=== PATIENT | male | born 1940 | race Caucasian/White ===

== ENCOUNTER 2020-03-22 08:43 | Outpatient (CLI) | payer MEDICARE, SELFPAY ==
[2020-03-22 09:28] LABS: Hemoglobin A1C 6.9 % (<5.7)
== END 2020-03-22 08:44 | disposition home or self-care (01) ==
LOC: ANHLAB 08:45
PROVIDERS: PCP Internal Medicine; Visit Provider Internal Medicine
DX: E11.9 Type 2 diabetes mellitus without complications (principal)
CPT/HCPCS: 36415; 83036

== ENCOUNTER 2020-05-05 09:51 | Outpatient (CLI) | payer MEDICARE, SELFPAY ==
[2020-05-05 10:51] LABS: Alanine Aminotransferase 12 U/L (4-50); Albumin Level 4.4 g/dL (3.5-5.1); Alkaline Phosphatase 76 U/L (38-126); Anion Gap 13.2 mmol/L (7-16); Aspartate Amino Transferase 20 U/L (17-59); Bilirubin,Total 0.8 mg/dL (0.2-1.3); Blood Urea Nitrogen 21 mg/dL (9-20); Calcium 9.5 mg/dL (8.4-10.2); Carbon Dioxide 29 mmol/L (22-30); Chloride 99 mmol/L (98-107); Estimated Glomerular Filt Rate > 60; Glucose 161 mg/dL (75-110); Potassium 4.2 mmol/L (3.4-5.0); Sodium 137 mmol/L (137-145)
== END 2020-05-05 09:52 | disposition home or self-care (01) ==
PROVIDERS: PCP Internal Medicine; Visit Provider Nurse Practitioner
DX: R42 Dizziness and giddiness (principal); R53.83 Other fatigue
CPT/HCPCS: 36415; 80053; 84443

== ENCOUNTER 2020-05-11 07:27 | Outpatient (CLI) | payer MEDICARE, SELFPAY ==
--- NOTE | ~2020-05-11 | CT_ITS ---
EXAMINATION: CT abdomen pelvis wo con EXAM DATE: 05/11/2020 07:43 INDICATION: Diverticulitis. Low Abdominal pain, prostate cancer. TECHNIQUE: Spiral CT of the abdomen and pelvis was performed without contrast. Axial, coronal and s agittal images were reviewed. The dose-length product (DLP) for this examination was 555.26 mGy-cm. The exposure was tailored according to patient size (auto mA exposure control), and iterative recons truction (ASIR) was used as additional dose reduction technique. Comparison is made to prior examinat ion from 05/23/2017. FINDINGS: There is a 1.2 cm right adrenal gland adenoma. Subcentimeter left liver lobe cyst. Splenic granulomata. The liver, spleen, adrenal glands and pancreas are otherwise unremarkable. Lower abdomi nal wall mesh. There are cholecystectomy clips. There is no nephrolithiasis or hydronephrosis. Robert gayle has likely had prostatectomy. Small bilateral inguinal fat-containing hernias. The bladder is unremarkable. There is no retroperitoneal or pelvic lymphadenopathy. There is moderate scattered a rteriosclerotic disease. The appendix is normal. The stomach and small bowel are unremarkable. There is expected amount of c olonic stool. There is extensive sigmoid predominant diverticulosis. Possible mild inflammation in th e pelvis, possible acute uncomplicated diverticulitis. No free intraperitoneal gas. The heart is normal in size. There are no pericardial or pleural effusions. Some bibasal postinfectious residua. There are no osteoblastic or osteolytic lesions identified. IMPRESSION: 1. Possible mild acute uncomplicated sigmoid diverticulitis. Extensive diverticulosis. 2. Prostatectomy, pelvic lymph node dissection. 3. Small inguinal fat-containing hernias. 4. Right adrenal adenoma. Reviewed, dictated and finalized at location A. IMPRESSION: 1. Possible mild acute uncomplicated sigmoid diverticulitis. Extensive diverti culosis. 2. Prostatectomy, pelvic lymph node dissection. 3. Small inguinal fat-containing hernias. 4. Right adrenal adenoma.
== END 2020-05-11 07:28 | disposition home or self-care (01) ==
PROVIDERS: PCP Internal Medicine; Visit Provider Nurse Practitioner
DX: K57.92 Diverticulitis of intestine, part unspecified, without perforation or abscess without bleeding (principal); Z90.79 Acquired absence of other genital organ(s); K40.90 Unilateral inguinal hernia, without obstruction or gangrene, not specified as recurrent; D35.01 Benign neoplasm of right adrenal gland
CPT/HCPCS: 74176

== ENCOUNTER 2020-08-04 07:33 | Outpatient (CLI) | payer MEDICARE, SELFPAY ==
[2020-08-04 08:21] LABS: Alanine Aminotransferase 16 U/L (4-50); Albumin Level 4.7 g/dL (3.5-5.1); Alkaline Phosphatase 67 U/L (38-126); Anion Gap 10 mmol/L (8-16); Aspartate Amino Transferase 22 U/L (17-59); Bilirubin,Total 0.8 mg/dL (0.2-1.3); Blood Urea Nitrogen 24 mg/dL (9-20); Calcium 9.5 mg/dL (8.4-10.2); Carbon Dioxide 30 mmol/L (22-30); Chloride 102 mmol/L (98-107); Cholesterol 185 mg/dL (0-200); Estimated Glomerular Filt Rate > 60; Glucose 159 mg/dL (75-110); HDL Direct 52 mg/dL; Sodium 142 mmol/L (137-145); Triglycerides 124 mg/dL (<150)
[2020-08-04 08:32] LABS: LDL Cholesterol Direct 98 mg/dL
[2020-08-04 08:38] LABS: Microalbumin Urine Random 94.3 mg/L (0-16.7)
[2020-08-04 10:43] LABS: Hemoglobin A1C 6.5 % (<5.7)
[2020-08-04 14:28] LABS: MALB Creatinine Ratio 26.9 mg/g (0-30)
[2020-08-05 08:35] LABS: Creatinine Urine 350.3 mg/dL
== END 2020-08-04 07:34 | disposition home or self-care (01) ==
PROVIDERS: PCP Internal Medicine; Visit Provider Nurse Practitioner
DX: E11.9 Type 2 diabetes mellitus without complications (principal); E78.00 Pure hypercholesterolemia, unspecified
CPT/HCPCS: 36415; 80053; 80061; 82043; 83036

== ENCOUNTER 2021-02-02 09:55 | Outpatient (CLI) | payer MEDICARE, SELFPAY ==
[2021-02-02 10:31] LABS: Hemoglobin A1C 6.7 % (<5.7)
[2021-02-02 10:37] LABS: Alanine Aminotransferase 19 U/L (4-50); Albumin Level 4.6 g/dL (3.5-5.1); Alkaline Phosphatase 65 U/L (38-126); Anion Gap 2 mmol/L (8-16); Aspartate Amino Transferase 27 U/L (17-59); Bilirubin,Total 0.6 mg/dL (0.2-1.3); Blood Urea Nitrogen 20 mg/dL (9-20); Calcium 9.1 mg/dL (8.4-10.2); Carbon Dioxide 34 mmol/L (22-30); Chloride 102 mmol/L (98-107); Cholesterol 178 mg/dL (0-200); Estimated Glomerular Filt Rate > 60; Glucose 166 mg/dL (75-110); HDL Direct 59 mg/dL; Potassium 4.4 mmol/L (3.4-5.0); Sodium 138 mmol/L (137-145); Triglycerides 99 mg/dL (<150)
[2021-02-02 10:48] LABS: LDL Cholesterol Direct 93 mg/dL
== END 2021-02-02 09:56 | disposition home or self-care (01) ==
LOC: ANHLAB 10:05
PROVIDERS: PCP Internal Medicine; Visit Provider Internal Medicine
DX: Z51.81 Encounter for therapeutic drug level monitoring (principal); Z79.899 Other long term (current) drug therapy; E78.5 Hyperlipidemia, unspecified; E11.9 Type 2 diabetes mellitus without complications
CPT/HCPCS: 36415; 80053; 80061; 83036

== ENCOUNTER 2021-04-24 12:17 | Outpatient (CLI) | payer MEDICARE, SELFPAY ==
--- NOTE | ~2021-04-24 | XR_ITS ---
[id number] 04/24/2021 12:39 Indication: Neck pain and headache Procedure: 5 view cervical spine Comparison: No prior studies for comparison. Findings: There is degenerative disc disease at C3-4 through C7-T1. There is degenerative anterolisth esis at C2-3 and retrolisthesis at C4-5. No prevertebral soft tissue swelling. There is mild multilev el uncinate and facet hypertrophy. Lung apices are normal. Impression: 1: Moderate cervical spondylosis. Reviewed, dictated and finalized at location A. Impression: 1: Moderate cervical spondylosis.
--- NOTE | ~2021-04-24 | CT_ITS ---
EXAMINATION: CT brain wo con DATE: 04/24/2021 12:35 INDICATION: Headache. TECHNIQUE: Computed tomography (CT) of the head was performed without intravenous contrast. The mA wa s adjusted according to patient size. Iterative reconstruction technique was employed. The dose-lengt h product was 605.33 mGy-cm. COMPARISON: None FINDINGS: There are scattered areas of low attenuation in the cerebral white matter. There is no intr acranial hemorrhage, acute infarction, or abnormal intracranial mass lesion. The ventricles are dino l in size. The orbits are normal. There is mild mucosal thickening in the paranasal sinuses. The mast oid air cells are normal. IMPRESSION: 1. Mild nonspecific cerebral white matter disease, which likely represents chronic small vessel ische lucie disease. Reviewed, dictated and finalized at location A. IMPRESSION: 1. 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
== END 2021-04-24 12:18 | disposition home or self-care (01) ==
LOC: ANHIMG 12:19
PROVIDERS: PCP Internal Medicine; Visit Provider Nurse Practitioner
DX: M47.892 Other spondylosis, cervical region (principal); R93.0 Abnormal findings on diagnostic imaging of skull and head, not elsewhere classified
CPT/HCPCS: 70450; 72040

== ENCOUNTER 2021-04-30 10:28 | Emergency (ER) | payer MEDICARE, SELFPAY ==
--- NOTE | ~2021-04-30 | XR_ITS ---
EXAMINATION: XR knee RT min 4V DATE: 04/30/2021 11:45 INDICATION: Right knee pain TECHNIQUE: Four views of the right knee were obtained. COMPARISON: None. FINDINGS: Alignment is normal. No fracture or osteochondral lesion. There is mild to moderate tricomp artmental osteoarthritis. A moderate size knee joint effusion is present. Calcified atherosclerosis i s noted. IMPRESSION: 1. Moderate size knee joint effusion. 2. Mild to moderate tricompartmental osteoarthritis. Reviewed, dictated and finalized at location A.
[2021-04-30 10:58] VITALS: BP 152/84; PULSE 74; RESP 12; TEMP 36.8; O2SAT 98
--- NOTE | 2021-04-30 11:27 | ED.EXTPRO ---
HPI - Extremity Problem General Chief complaint: Extremity Problem,Nontraumatic Stated complaint: R KNEE SWELLING Time Seen by Provider: 04/30/21 11:27 Source: patient Mode of arrival: ambulatory Limitations: no limitations History of Present Illness HPI Narrative: 81-year-old male patient presents to the [facility] with complaints of right knee swelling that started yesterday. Patient states that he went to go and get out of his recliner and felt like his knee was unstable and felt some pain. Patient states he has been icing it as well as wrapping it with an Carlos wrap. Denies taking any medications. Denies any recent trauma. Related Data Home Medications Medication Instructions Recorded Confirmed bimatoprost 0.01 % eye drops 1 drop EACH EYE DAILY 04/06/20 04/30/21 multivitamin 1 tablet PO DAILY 05/05/20 04/30/21 omega-3 fatty acids 1,000 mg PO DAILY 05/05/20 04/30/21 azelastine 137 mcg (0.1 %) nasal 137 mcg INTRANASAL Q12H 02/07/21 04/30/21 spray aerosol Allergies Allergy/AdvReac Type Severity Reaction Status Date / Time iodine Allergy Unknown Rash Verified 04/30/21 10:58 Review of Systems Review of Systems: Narrative: CONSTITUTIONAL: Denies fever, chills, or sweats. EYES: Denies visual changes, redness, or discharge. ENT: Denies rhinorrhea, congestion, sore throat, or otalgia. CARDIOVASCULAR: Denies chest pain, palpitations, or edema. RESPIRATORY: Denies cough or dyspnea. GASTROINTESTINAL: Denies abdominal pain, nausea, vomiting, or diarrhea. GENITOURINARY: Denies dysuria or hematuria. SKIN: Denies rash or itching. MUSCULOSKELETAL: Denies back pain, positive right knee joint pain, denies myalgia. NEUROLOGIC: Denies headache, numbness, or weakness. PSYCHIATRIC: Denies anxiety or depression. [facility] Past Medical History Medical History Diverticulitis Surgical History Surgical History History of prostatectomy Family History Family History Mother Patient's mother is Family history of malignant neoplasm of ovary Father Patient's father is Family history of malignant melanoma Sibling Family history of malignant melanoma Other Hypertension Social History Social History Smoking status: Never smoker Alcohol intake: never Comments At the time of my signature I agree with nursing past medical history, surgical, social, and family history. There is no relevant family history pertinent to the presenting complaint. Exam Narrative: Exam Narrative: GENERAL: Well-appearing, well-nourished, and in no acute distress. HEAD: Normocephalic, atraumatic. EYES: PERRLA and EOMI. ENT: Nares clear, no rhinorrhea or epistaxis. Mucous membranes moist. NECK: Supple. No lymphadenopathy CHEST: Clear to auscultation. No respiratory distress. HEART: Regular rate and rhythm. No murmur heard. Normal peripheral pulses. ABDOMEN: Soft, nontender, nondistended, normal active bowel sounds. EXTREMITIES: Patient is able to bear weight and ambulate but does have slight pain to the right knee. No surface trauma, STS, obvious effusion present to the right knee. No overlying erythema or warmth. The R knee is without obvious asymmetry or deformity when compared to the L knee. Patient is able to do deep knee bend with symmetry but has pain, no pain when fully extend knee, internal and external rotation. Slight tendernss to palpation of the patella, positive effusion and ballottement. No tenderness over the infrapatellar tendon. No tenderness over the medial or lateral joint lone ot the medial or lateral tibial plateaus. no tenderness over the proximal fibular head. no tenderness, fullness, or mass of the popliteal fossa. No quadriceps tenderness. No laxity of the ACL, PCL, MCL, or LCL. No collateral ligam
== END 2021-04-30 12:34 | disposition home or self-care (01) ==
PROVIDERS: Emergency Provider Nurse Practitioner Family; PCP Internal Medicine
DX: M25.461 Effusion, right knee (principal); Z90.79 Acquired absence of other genital organ(s); E78.00 Pure hypercholesterolemia, unspecified; I10 Essential (primary) hypertension; E11.9 Type 2 diabetes mellitus without complications; H26.9 Unspecified cataract; E11.39 Type 2 diabetes mellitus with other diabetic ophthalmic complication; H40.9 Unspecified glaucoma; H42 Glaucoma in diseases classified elsewhere
CPT/HCPCS: 73564; 99213; G0463

== ENCOUNTER 2021-08-18 09:00 | Outpatient (CLI) | payer MEDICARE, SELFPAY ==
[2021-08-18 10:31] LABS: Alanine Aminotransferase 17 U/L (4-50); Albumin Level 4.7 g/dL (3.5-5.1); Alkaline Phosphatase 70 U/L (38-126); Anion Gap 9 mmol/L (8-16); Aspartate Amino Transferase 23 U/L (17-59); Bilirubin,Total 0.9 mg/dL (0.2-1.3); Blood Urea Nitrogen 27 mg/dL (9-20); Calcium 9.7 mg/dL (8.4-10.2); Carbon Dioxide 28 mmol/L (22-30); Chloride 102 mmol/L (98-107); Cholesterol 197 mg/dL (0-200); Estimated Glomerular Filt Rate > 60; Glucose 176 mg/dL (65-110); HDL Direct 60 mg/dL; Potassium 4.1 mmol/L (3.4-5.0); Sodium 139 mmol/L (137-145); Triglycerides 141 mg/dL (<150)
[2021-08-18 10:39] LABS: Vitamin D 25 Hydroxy 47.4 ng/mL
[2021-08-18 10:42] LABS: LDL Cholesterol Direct 108 mg/dL
[2021-08-18 10:45] LABS: Hemoglobin A1C 6.8 % (<5.7)
[2021-08-18 10:50] LABS: Creatinine Urine 231.2 mg/dL
[2021-08-18 10:56] LABS: MALB Creatinine Ratio 17.6 mg/g (0-30); Microalbumin Urine Random 40.7 mg/L (0-16.7)
== END 2021-08-18 09:01 | disposition home or self-care (01) ==
LOC: ANHLAB 09:03
PROVIDERS: PCP Internal Medicine; Visit Provider Nurse Practitioner
DX: E55.9 Vitamin D deficiency, unspecified (principal); E11.9 Type 2 diabetes mellitus without complications; E78.00 Pure hypercholesterolemia, unspecified
CPT/HCPCS: 36415; 80053; 80061; 82043; 82306; 83036

== ENCOUNTER 2021-08-23 10:05 | Outpatient (CLI) | payer MEDICARE, SELFPAY ==
[2021-08-23 10:23] LABS: Basophils Absolute Auto 0.1 K/mm3 (0.0-0.1); Basophils Percent Auto 0.8 % (0.2-1.2); Eosinophils Absolute Auto 0.2 K/mm3 (0-0.3); Immature Granulocyte Absolute 0.07 K/mm3 (0.00-0.031); Immature Granulocyte Percent A 0.7 % (0-0.5); Lymphocytes Absolute Auto 2.01 K/mm3 (0.9-3.2); Lymphocytes Percent Auto 21.1 % (18.3-44.2); Mean Corpuscular Hemoglobin 31.5 pg (26-34); Mean Corpuscular Volume 92.5 fl (80-100); Mean Platelet Volume 9.7 fl (7.4-10.4); Monocytes Percent Auto 10.7 % (2.6-8.5); Neutrophils Absolute Auto 6.2 K/mm3 (1.3-6.7); Neutrophils Percent Auto 64.7 % (45.5-73.1); Platelet Count Result 197 k/mm3 (150-375); Red Blood Count 5.08 M/mm3 (4.6-6.20); Red Cell Distribution Width 13.1 % (11.5-14.5); White Blood Count 9.5 K/mm3 (4.5-10.0)
== END 2021-08-23 10:06 | disposition home or self-care (01) ==
LOC: ANHLAB 10:06
PROVIDERS: PCP Internal Medicine; Visit Provider Internal Medicine
DX: R53.83 Other fatigue (principal)
CPT/HCPCS: 36415; 82607; 84443; 85025

== ENCOUNTER 2021-08-31 08:42 | Outpatient (CLI) | payer MEDICARE, SELFPAY ==
--- NOTE | ~2021-08-31 | MR_ITS ---
EXAMINATION: MR brain/brain stem wo con DATE: 08/31/2021 09:58 INDICATION: Headache, unspecified. TECHNIQUE: Magnetic resonance imaging (MRI) of the brain and brainstem was performed without intraven ous contrast. Sequences included sagittal and axial T1-weighted FSE, axial diffusion-weighted FS EPI, axial T2*-weighted GRE, axial T2-weighted FLAIR Propeller, and axial T2-weighted Propeller. The catalino ent refused intravenous contrast. Apparent diffusion coefficient (ADC) maps were created. COMPARISON: Head CT 04/24/2021 FINDINGS: There are scattered areas of nonspecific increased T2-weighted signal intensity in the cere bral white matter. There is no intracranial hemorrhage, acute infarction, or abnormal intracranial ma ss lesion. The ventricles are normal in size. The paranasal sinuses are clear. The orbits are normal. The mastoid air cells are normal. IMPRESSION: 1. Moderate nonspecific cerebral white matter disease, which likely represents chronic small vessel i schemic disease. Reviewed, dictated and finalized at location A. IBILITY EXAMINER IMPRESSION: 1. Moderate nonspecific cerebral white matter disease, which likely represents chronic small vessel ischemic disease.
== END 2021-08-31 08:43 | disposition home or self-care (01) ==
PROVIDERS: PCP Internal Medicine; Visit Provider Internal Medicine
DX: R51.9 Headache, unspecified (principal); R90.82 White matter disease, unspecified
CPT/HCPCS: 70551

== ENCOUNTER 2021-10-25 11:00 | Outpatient (RCR) | payer MEDICARE, SELFPAY ==
--- NOTE | 2021-10-03 10:47 | PTOPEVAL ---
Thank you for referring Carlitos Rodarte to [facility].? The patient is scheduled to be seen for therapy? 2 x/week for 3 weeks. Please review, sign, date and return this plan of care FRENCH. I agree with and certify that the following plan of care is medically necessary. Referring Physician Date Attending Provider: Breezy Trinidad DO Diagnosis [email or web address] knee pain and dizziness Additional Evaluation Detail He is active working in yard. Does not perform a fitness program. He is applying voltaren for pain relief. Has DM, but denies neuropathy. Subjective Information He had water on his knee Query Text:As Reported By Patient/ about 2-3 months ago, which Family improved on its own with use of ice. Does not recall any activities any injury. 1 year ago he missed the bottom step slamming his right leg on the ground causing a broken toe. He reports clicking of his knee when walking on a decline slope. He reports limitations with negotiating steps. He reports he does not feel stable with activities. He reports intermittent head throbbing, but not dizziness. He has had vertigo in the past with medication to treat. Pain Assessment Left Knee(s) Reported Pain Level 3 Pain Description Aching Pain Frequency Chronic,Continuous Lowest Pain Intensity 2 Greatest Pain Intensity 3 Pain Aggravating Factors Exercise/Activity,Stair Climbing Right Knee(s) Reported Pain Level 1 Pain Description Aching Pain Frequency Chronic,Continuous Lowest Pain Intensity 1 Greatest Pain Intensity 2 Pain Aggravating Factors Exercise/Activity,Stair Climbing Lower Extremity Range of Motion General Lower Extremity Range of Motion Gross Lower Extremity Range of Motion left knee: 0-130 dg Comments right knee 0-140 dg Lower Extremity Muscle Strength Testing General Lower Extremity Strength Gross Lower Extremity Strength right hip flex: 4/5, ext: 4+/5 , abduction: 3/5, knee ext: 4/ 5, knee flex: 5/5 left hip flex/ext: 4+/5,
--- NOTE | 2021-10-25 11:46 | PTOPEVAL ---
Physical Therapy Discharge Summary Thank you for referring Carlitos Rodarte to [facility]He has received 7 therapy visits to address his knee pain and vestibular impairment. He has reached maximal potential with skilled therapy services with therapy goals achieved. Will discharge therapy services at this time with recommendations for him to continue with his home exercises. Please review, sign, date and return this discharge summary FRENCH. I agree with and certify that the following plan of care is medically necessary. Referring Physician Date Attending Provider: Breezy Trinidad DO Diagnosis [email or web address] knee pain and dizziness Additional Evaluation Detail He is active working in yard. Has DM, but denies neuropathy. Subjective Information He has intermittent dizziness Query Text:As Reported By Patient/ with movement, but it only Family last a few seconds. He has increased head pressure with head down position but relieved in upright position. He is able to negotiate steps better. Reports improved knee motion, denies any knee pain or clicking of his knee when walking. He is compliant with HEP. Pain Assessment Left Knee(s) Reported Pain Level 0 Lowest Pain Intensity 0 Greatest Pain Intensity 0 Right Knee(s) Reported Pain Level 0 Lowest Pain Intensity 0 Greatest Pain Intensity 0 Lower Extremity Range of Motion General Lower Extremity Range of Motion Gross Lower Extremity Range of Motion left knee: 0-130 dg Comments right knee 0-140 dg Lower Extremity Muscle Strength Testing General Lower Extremity Strength Gross Lower Extremity Strength right hip flex: 4+/5, ext: 5/5 abduction: 3+/5, knee ext: 4+/5, knee flex: 5/5 left hip flex/ext: 4+/5, abduction: 3+/5 knee flex/ext: 5/5 Muscle Length Testing Muscle Length Testing Two-Joint Hip Flexor Shortened Muscles Short (R) Iliopsoas,Short (L) Iliopsoas,Short (R) Rectus Femoris,Short (L) Rectus Femoris,Short (R) Ilial Tib Band,Short (L) Ilial Tib Band Piriformis w/Hip Flexion >90 Degrees (R) Moderate Tightness,(L) Moderate Tightness Left Hamstring Length -35:(90 - 90 Position) Right Hamstring Length -40:(90 - 90 Position) Gastrocnemius Length (R) Moderate Tightness,(L) Moderate Tightness Special Tests-Lower Extremity Hip Special Tests
== END 2021-10-26 17:17 | disposition home or self-care (01) ==
LOC: ANHPT 11:00
PROVIDERS: PCP Internal Medicine; Visit Provider Internal Medicine
DX: M25.561 Pain in right knee (principal); M25.562 Pain in left knee; R42 Dizziness and giddiness
CPT/HCPCS: 97110; 97112; 97162

== ENCOUNTER 2022-02-23 08:04 | Outpatient (CLI) | payer MEDICARE, SELFPAY ==
[2022-02-23 09:06] LABS: Alanine Aminotransferase 14 U/L (6-50); Albumin Level 4.3 g/dL (3.5-5.1); Alkaline Phosphatase 65 U/L (38-126); Anion Gap 8 mmol/L (8-16); Aspartate Amino Transferase 22 U/L (17-59); Blood Urea Nitrogen 31 mg/dL (9-20); Calcium 8.8 mg/dL (8.4-10.2); Carbon Dioxide 28 mmol/L (22-30); Chloride 102 mmol/L (98-107); Estimated Glomerular Filt Rate > 60; Glucose 159 mg/dL (65-110); Potassium 4.1 mmol/L (3.4-5.0); Sodium 138 mmol/L (137-145)
[2022-02-23 09:21] LABS: Creatinine Urine 316.3 mg/dL
[2022-02-23 09:26] LABS: MALB Creatinine Ratio 19.6 mg/g (0-30)
[2022-02-23 10:50] LABS: Vitamin D 25 Hydroxy 48.2 ng/mL
[2022-02-23 15:53] LABS: Hemoglobin A1C 6.8 % (<5.7)
== END 2022-02-23 08:05 | disposition home or self-care (01) ==
PROVIDERS: PCP Internal Medicine; Visit Provider Internal Medicine
DX: E11.9 Type 2 diabetes mellitus without complications (principal); I10 Essential (primary) hypertension; Z51.81 Encounter for therapeutic drug level monitoring; E55.9 Vitamin D deficiency, unspecified
CPT/HCPCS: 36415; 80053; 82043; 82306; 83036

== ENCOUNTER 2022-03-29 01:28 | Day surgery (SDC) | payer MEDICARE, SELFPAY ==
[2022-03-20 12:49] VITALS: BMI 23.7
--- NOTE | 2022-03-20 13:01 | PC.NURSE ---
Report to the Outpatient Waiting Room, entrance under the green pavilion located off [facility], at time _0830_ on date _03/29/22_. OR Time: _1030_. - You and your visitor will be asked a series of questions to screen for COVID 19 for your protection. - Only one visitor is allowed at this time. - The patient visitor is requested to leave or wait in car when not with patient. - A mask is required within the hospital. Patients may have clear liquids (water, carbonated beverages, clear teas, apple juice) until 3 hours prior to surgery (0730 AM) with a maximum of 20 ounces. - No food from midnight until time of surgery Take the following medications with a SIP of water the morning of surgery: _FELODIPINE_ Medications to discontinue per ANESTHESIA - MULTIVITAMIN, FISH OIL 3 DAYS PRIOR TO SURGERY, Date to take last dose 03/25/22_ Please no deodorant, or body powder the day of surgery. No jewelry (including any body piercings) or valuables the day of surgery, leave them at home. Please take a shower or bath the night before, or the morning of, surgery with an antibacterial soap. Wear comfortable, loose fitting clothing. - Jewelry must be removed prior to entering the operating room. Rings and piercings that are not removed may be cut off. - The hospital will not accept responsibility for valuables. - Please leave all valuables, including medications, at home the day of surgery. If you are going home after surgery, a licensed school boat driver must drive you home. - NO public transportation without another adult. - We recommend that an adult stay with you for 24 hours following discharge. - We also recommend that you do not drive, make important decision, drink alcoholic beverages, or take any drugs that were not prescribed by your health care provider for at least 24 hours after your discharge time. Follow any additional instructions given to you from your surgeon. HIBICLENS SHOWER AM OF SURGERY If you or anyone in your household have experienced Covid symptoms in the past week, please notify your surgeon or the nurse liaison at the phone number below for possible testing. Telephone instructions given to ____PT and asked if any additional questions and then verbalized understanding. Patient advised to call surgeon office or pre surgery nurse liaison [phone] if any additional questions.
--- NOTE | 2022-03-28 09:35 | WPDANESEPPF ---
Anes - Initial Pre Proc Eval Procedure: Operation Date: 03/29/22 10:30 Proposed Procedures p Right Inguinal Hernia Repair - Addi Foster MD Date/Time: 03/28/22 09:35 Surgeon: Addi Foster MD Pre Op Diagnosis: right inguinal hernia Patient Data Age: 82 Gender: M Height: 1.8 m Weight: 77.27 kg Allergies Allergy/AdvReac Type Severity Reaction Status Date / Time iohexol AdvReac Difficulty Verified 03/29/22 08:35 [From contrast - CT, X-RAY] Breathing/RASH/HOT FLUSHED FEELING Home Medications Medication Instructions Recorded Confirmed Type bimatoprost 0.01 % eye drops 1 drop ophthalmic (eye) HS 04/06/20 03/29/22 History (Lumigan) multivitamin 1 tablet PO QA 05/05/20 03/29/22 History omega-3 fatty acids 1,000 mg PO HS 05/05/20 03/29/22 History azelastine 137 mcg (0.1 %) nasal 137 mcg intranasal HS 02/07/21 03/29/22 History spray aerosol felodipine 10 mg tablet,extended 10 mg QA 03/20/22 03/29/22 History release 24 hr metformin 500 mg tablet 250 mg PO HS 03/20/22 03/29/22 History pravastatin 20 mg tablet 20 mg HS 03/20/22 03/29/22 History spironolactone 25 mg tablet 25 mg HS 03/20/22 03/29/22 History potassium chloride 20 mEq 20 meq PO BID #90 tabs 03/27/22 03/29/22 Rx tablet,extended release(part/cryst) hydrocodone 5 mg-acetaminophen 325 1 - 2 tablet PO Q6H PRN pain #10 03/29/22 Rx mg tablet tabs ibuprofen 600 mg tablet 600 mg PO Q6H PRN pain #14 tabs 03/29/22 Rx Patient hx anesthesia problems: none Family hx anesthesia problems: none Results Review: All pre-operative results and documents have been reviewed as part of the pre-operative evaluation. [facility] Past Medical History Medical History (Updated 03/28/22 @ 09:37 by Aron Mina DO) Arthritis of right knee Diverticulitis Essential (primary) hypertension Gastro-esophageal reflux disease without esophagitis Irregular heart beat Pure hypercholesterolemia Right bundle branch block Type 2 diabetes mellitus without complications Surgical History Surgical History H/O inguinal hernia repair History of prostatectomy Family History Family History Mother Patient's mother is Family history of malignant neoplasm of ovary Father Patient's father is Family history of malignant melanoma Sibling Family history of malignant melanoma Other Hypertension Social History Social History Smoking status: Never smoker Second hand tobacco smoke exposure: No Alcohol intake: never Substance use: never Substance use type: does not use Spiritual care concerns: No Anes - Eval Final PreProcedure Day of Procedure 03/28/22 09:35 Patient weight: normal Heart: regular rate and rhythm Lungs: clear to auscultation Airway: Mallampati scale class II Neurological: alert and oriented Last oral intake: >/= 8 hours ASA classification: III Emergent: no Anesthetic plan: proceed Anesthesia type and monitoring: general GIVS and standard monitoring Results Review: All pre-operative results and documents have been reviewed as part of the pre-operative evaluation. Informed Consent: The patient's anesthetic plan and its attendant risks and benefits were discussed with the patient/family/POA. Questions were solicited and answers provided to the satisfaction of the patient/family/POA.
--- NOTE | 2022-03-29 08:25 | WPDHPUPDATE1 ---
History and Physical Update Update Date/Time: 03/29/22 08:25 History and Physical has been reviewed, including an updated exam of the patient. There are NO changes in the patient's condition. Risks, benefits, and alternatives have been discussed and questions answered. Patient agrees to proceed with procedure.
[2022-03-29] MEDS: ACETAMINOPHEN 500 MG TABLET 1000 MG PO (08:42)
[2022-03-29 08:45] VITALS: BP 133/72; PULSE 79; RESP 20; TEMP 36.7; O2SAT 96
[2022-03-29] MEDS: LACTATED RINGERS 1,000 ML 30 ML IV CONT (09:25)
[2022-03-29] MEDS: KETOROLAC 15 MG/ML VIAL (*BKC) IV PUSH (09:30)
[2022-03-29 09:35] LABS: Glucose Point of Care 188 mg/dl (65-105)
[2022-03-29] MEDS: ceFAZolin 2 GM/D5W 50 ML 2 GM/50 ML BAG IVPB (10:28)
[2022-03-29] MEDS: LIDO 1%/EPINEPHRINE/PF 1:200,000 30 ML VIAL XX (10:52)
[2022-03-29 12:00] VITALS: BP 122/72; PULSE 78; RESP 12; O2SAT 94
[2022-03-29 12:08] LABS: Glucose Point of Care 134 mg/dl (65-105)
--- NOTE | 2022-03-29 12:17 | W.PM.PROC2 ---
Procedure Note - Detailed Date of Procedure 03/29/22 Pre-op Diagnosis right inguinal hernia Post-op Diagnosis Same Procedure Performed Right inguinal hernia repair with large PerFix Light plug and patch Surgeon Addi Foster MD Furniture Crater Jana Sigala COIL CONNECTOR REPAIRER Anesthesia General (G IV S) and Local (0.5% Marcaine) Indications Patient has noticed a bulge with some discomfort in the right groin. Examination in the office showed a reducible right inguinal hernia. He is taken to surgery now for right inguinal hernia repair. Findings This was an indirect right inguinal hernia. It appeared to have some of the urinary bladder wall as part of the hernia sac consistent with a sliding inguinal hernia. No direct hernia was noted. Description of Procedure Patient was taken to surgery and anesthesia was introduced. The right groin and genitalia were prepped and draped. The proposed incision was drawn in the right inguinal region. Local anesthetic was infiltrated in the area of the anticipated incision and in the deeper subcutaneous tissues. Incision was made dissection was carried down through the subcutaneous. Crossing veins were cauterized and divided. We dissected down through the subcutaneous to the external oblique aponeurosis. The aponeurosis was exposed as was the external ring. We then infiltrated local anesthetic deep to the aponeurosis in the area of the spermatic cord and inguinal canal contents. The aponeurosis was then opened laterally and this incision was extended medially through the external ring. The leaves of the aponeurosis were carefully dissected free from the underlying spermatic cord and inguinal canal contents. The ileal inguinal nerve was left attached to the cord and carefully avoided throughout the surgery. The cord was mobilized medially on a Katt drain. We then mobilized the cord back to the internal ring. Dissection was carried out in the anteromedial aspect of the spermatic cord. Some lipomatous tissue was found. This was excised and discarded. I dissected closer to the internal ring and then found the hernia sac which appeared to have some of the urinary bladder as its medial component. I dissected the sac back to a high dissection. I then dunked the sac into the retroperitoneum. I further skeletonized the cord so that the mesh could be securely sutured to the transversalis fascia. A large PerFix Light plug was chosen. It was placed in the defect. The edges were sutured to the transversalis fascia with interrupted 3-0 Vicryl suture. I then cut the patch to the appropriate size. It was placed over the inguinal canal floor with the lateral leaves passing beyond the cord. I then placed the 1st piece of Xaracoll over the mesh. The cord and ilioinguinal nerve were then laid over the the Xaracoll. The external oblique aponeurosis was closed with interrupted 3-0 Vicryl suture. The 2nd pieces Xaracoll was then placed over the external oblique aponeurosis. Alisia's fascia was closed with interrupted 3-0 Vicryl suture. The last piece of Xaracoll was then placed in the subcutaneous. The skin was loosely approximated with interrupted 4-0 Vicryl subcuticular suture. Finally the skin was closed with a running 4-0 Monocryl skin suture. The wound was dressed with Exofin surgical adhesive. The patient was awakened did take it to outpatient recovery in good condition. Sponge and needle counts were correct x2. Implants Large PerFix Light plug and patch Estimated Blood Loss -5.0 Drains No Packing No Pathology None sent Complications No immediate complications Condition Stable Disposition Same day [facility] Billing Surgery - Charge Forward: Surgery Billing (Right inguinal hernia repair)
[2022-03-29 12:30] VITALS: BP 120/80; PULSE 71; RESP 20
[2022-03-29 13:00] VITALS: BP 133/67; PULSE 59; RESP 20
[2022-03-29 13:30] VITALS: BP 137/67; PULSE 57; RESP 20
== END 2022-03-29 13:45 | disposition home or self-care (01) ==
PROVIDERS: PCP Nurse Practitioner; Visit Provider Surgery
PROC: (CPT 49505; principal; 2022-03-29 10:30)
DX: K40.90 Unilateral inguinal hernia, without obstruction or gangrene, not specified as recurrent (principal); E11.9 Type 2 diabetes mellitus without complications; I10 Essential (primary) hypertension; K21.9 Gastro-esophageal reflux disease without esophagitis; E78.00 Pure hypercholesterolemia, unspecified; I45.10 Unspecified right bundle-branch block; Z79.84 Long term (current) use of oral hypoglycemic drugs
CPT/HCPCS: 49505; 82948; A9270; C1781; J0690; J1100; J1885; J2370; J2405; J2704; J3010; J7120

== ENCOUNTER 2022-09-08 07:13 | Outpatient (CLI) | payer MEDICARE, SELFPAY ==
[2022-09-08 08:22] LABS: Alanine Aminotransferase 15 U/L (6-50); Albumin Level 4.2 g/dL (3.5-5.1); Alkaline Phosphatase 62 U/L (38-126); Anion Gap 7 mmol/L (8-16); Aspartate Amino Transferase 20 U/L (17-59); Bilirubin,Total 0.6 mg/dL (0.2-1.3); Blood Urea Nitrogen 19 mg/dL (9-20); Calcium 8.9 mg/dL (8.4-10.2); Carbon Dioxide 29 mmol/L (22-30); Chloride 102 mmol/L (98-107); Cholesterol 162 mg/dL (0-200); Estimated Glomerular Filt Rate > 60; Glucose 166 mg/dL (65-110); HDL Direct 50 mg/dL; Sodium 138 mmol/L (137-145); Triglycerides 110 mg/dL (<150)
[2022-09-08 08:33] LABS: LDL Cholesterol Direct 76 mg/dL
[2022-09-08 09:28] LABS: Hemoglobin A1C 7.2 % (<5.7)
== END 2022-09-08 07:14 | disposition home or self-care (01) ==
PROVIDERS: PCP Nurse Practitioner; Visit Provider Nurse Practitioner
DX: E11.9 Type 2 diabetes mellitus without complications (principal); E78.5 Hyperlipidemia, unspecified
CPT/HCPCS: 36415; 80053; 80061; 83036

== ENCOUNTER 2023-03-13 07:53 | Outpatient (CLI) | payer MEDICARE, SELFPAY ==
[2023-03-13 08:26] LABS: Hemoglobin A1C 7.3 % (<5.7)
[2023-03-13 08:31] LABS: Alanine Aminotransferase 19 U/L (6-50); Albumin Level 4.3 g/dL (3.5-5.1); Alkaline Phosphatase 62 U/L (38-126); Anion Gap 5 mmol/L (8-16); Aspartate Amino Transferase 21 U/L (17-59); Bilirubin,Total 0.9 mg/dL (0.2-1.3); Blood Urea Nitrogen 26 mg/dL (9-20); Calcium 8.7 mg/dL (8.4-10.2); Carbon Dioxide 30 mmol/L (22-30); Chloride 101 mmol/L (98-107); Cholesterol 171 mg/dL (0-200); Estimated Glomerular Filt Rate > 60; Glucose 170 mg/dL (65-110); HDL Direct 50 mg/dL; Sodium 136 mmol/L (137-145); Triglycerides 127 mg/dL (<150)
[2023-03-13 08:42] LABS: LDL Cholesterol Direct 95 mg/dL
[2023-03-13 09:19] LABS: Creatinine Urine 206.2 mg/dL
[2023-03-13 09:22] LABS: Microalbumin Urine Random 28.8 mg/L (0-16.7)
== END 2023-03-13 07:54 | disposition home or self-care (01) ==
LOC: ANHLAB 07:53
PROVIDERS: PCP Nurse Practitioner; Visit Provider Internal Medicine
DX: E78.5 Hyperlipidemia, unspecified (principal); I10 Essential (primary) hypertension; E11.9 Type 2 diabetes mellitus without complications
CPT/HCPCS: 36415; 80053; 80061; 82043; 83036

== ENCOUNTER 2023-06-07 14:51 | Outpatient (CLI) | payer MEDICARE, SELFPAY ==
[2023-06-07 15:09] LABS: Hematocrit 46.3 % (42.0-52.0); Hemoglobin 15.9 g/dL (14.0-18.0); Mean Corpuscular HGB Conc 34.3 g/dl (32-36); Mean Corpuscular Hemoglobin 31.2 pg (26-34); Mean Platelet Volume 9.5 fl (7.4-10.4); Platelet Count Result 233 k/mm3 (150-375); Red Blood Count 5.09 M/mm3 (4.6-6.20); Red Cell Distribution Width 12.7 % (11.5-14.5); White Blood Count 8.2 K/mm3 (4.5-10.0)
== END 2023-06-07 14:52 | disposition home or self-care (01) ==
PROVIDERS: PCP Family Medicine; Visit Provider Nurse Practitioner
DX: R19.4 Change in bowel habit (principal); R53.83 Other fatigue
CPT/HCPCS: 36415; 85027

== ENCOUNTER 2023-07-05 12:18 | Outpatient (CLI) | payer MEDICARE, SELFPAY ==
--- NOTE | ~2023-07-05 | CT_ITS ---
Non-contrast CT scan of the Abdomen and Pelvis Clinical indication: Suprapubic tenderness and lump Technique: 2.5 mm axial scans were obtained through the abdomen and pelvis without intravenous or or al contrast. Dose reduction technique was used on this scan by utilizing automated exposure control a nd iterative reconstruction technique. The dose-length product (DLP) was 580.80 mGy-cm. COMPARISON: 05/11/2020 Findings: Images through the lung bases reveal mild bibasilar atelectasis/scarring. Small bilateral renal cysts are present. No renal stone or hydronephrosis evident. The liver, spleen, pancreas, and adrenal glands appear normal. Small right adrenal nodule is unchange d, consistent with adenoma. Cholecystectomy clips are present. There is no aortic aneurysm. There is no evidence of bowel obstruction. There is extensive sigmoid diverticulosis. Questionable mi ld wall thickening of the distal sigmoid colon. No abscess or free air. Images through the pelvis were performed. There is no evidence of ascites or lymphadenopathy. Urinary bladder unremarkable. Patient appears to be post prostatectomy. Apparent mesh or other postsurgical material present at the lower anterior abdominal wall region. Impression: Questionable very mild acute diverticulitis of the distal sigmoid colon. No abscess or free air. Post prostatectomy. Presumed herniorrhaphy mesh or other postsurgical material just deep to the infer ior, anterior abdominal wall in the suprapubic region. Stable right adrenal adenoma. Reviewed, dictated and finalized at [facility]. Impression: Questionable very mild acute diverticulitis of the distal sigmoid colon. No abs cess or free air. Post prostatectomy. Presumed herniorrhaphy mesh or other postsurgical material just deep to the inferior, anterior abdominal wall in the suprapubic region. Stable right adrenal adenoma.
== END 2023-07-05 12:19 | disposition home or self-care (01) ==
LOC: ANHIMG 12:21
PROVIDERS: PCP Family Medicine; Visit Provider Nurse Practitioner
DX: R19.4 Change in bowel habit (principal); R19.00 Intra-abdominal and pelvic swelling, mass and lump, unspecified site; R10.819 Abdominal tenderness, unspecified site; Z90.79 Acquired absence of other genital organ(s); Z86.010 Personal history of colon polyps; D35.01 Benign neoplasm of right adrenal gland
CPT/HCPCS: 74176

== ENCOUNTER 2023-08-29 00:59 | Day surgery (SDC) | payer MEDICARE, SELFPAY ==
[2023-07-03 13:16] VITALS: BMI 23.7
[2023-08-16 09:17] VITALS: BMI 23.7
--- NOTE | 2023-08-27 09:42 | SUR.PREOP ---
Patient called regarding upcoming procedure. Reviewed preop instructions, appointment times, and procedure prep.
[2023-08-29 07:25] VITALS: BP 142/68; PULSE 90; RESP 20; TEMP 36.7; O2SAT 99
[2023-08-29 07:35] LABS: Glucose Point of Care 157 mg/dl (65-105)
[2023-08-29] MEDS: LACTATED RINGERS 1,000 ML 150 ML IV CONT (07:43)
--- NOTE | 2023-08-29 08:26 | PM.HPGS ---
History of Present Illness History of Present Illness Consent: Risks, benefits, and alternatives have been discussed and questions answered. Patient agrees to proceed with procedure. Chief complaint: Personal hx of colonic polyps Narrative: Carlitos Rodarte is a 83 year old male with colon polyps in 2019 Review of Systems Constitutional: Constitutional: Denies headache(s) and Denies weakness Eyes: Eyes: Denies blurry vision ENT: Reports Normal hearing present, Denies headache(s) and Denies neck pain Cardiovascular: Cardiovascular: Denies chest pain and Denies dyspnea Respiratory: Respiratory: Denies dyspnea Gastrointestinal: Gastrointestinal: Reports no additional gastrointestinal complaints Genitourinary: Genitourinary: Denies dysuria Musculoskeletal: Musculoskeletal: Denies neck pain Integumentary/Breasts: Skin/Breast: Denies dry skin Neurologic: Reports Normal hearing present, Denies headache(s) and Denies weakness Psychiatric: Psychiatric: Denies anxiety Endocrine: Endocrine: Denies change in body appearance Hematologic/Lymphatic: Hematologic/Lymphatic: Denies easy bleeding Allergic/Immunologic: Allergic/Immunologic: Denies urticaria PMFSH Past Medical History Medical History (Updated 06/28/23 @ 13:28 by Joy Moore, SHAWN) Arthritis of right knee COVID-19 Diverticulitis Essential (primary) hypertension Gastro-esophageal reflux disease without esophagitis Hx of adenomatous colonic polyps Irregular heart beat Lump in the abdomen Pure hypercholesterolemia Right bundle branch block Suprapubic tenderness Type 2 diabetes mellitus without complications Surgical History Surgical History H/O inguinal hernia repair Right Inguinal Hernia repair on 03/29/2022. History of prostatectomy Family History Family History Mother Patient's mother is Family history of malignant neoplasm of ovary Father Patient's father is Family history of malignant melanoma Sibling Family history of malignant melanoma Other Hypertension Social History Social History Smoking status: Never smoker Second hand tobacco smoke exposure: No Alcohol intake: never Substance use: never Substance use type: does not use Lack of Transportation: No Lack of Food: Never True Current Housing: I Have Housing Concerned About Future Housing: No Difficulty Paying Gas/Electric Bills: No Difficulty Paying for Meds: No Currently Unemployed: No Education: High School Diploma/GED Difficulty w/ Childcare or Family Care: No Living arrangements: with family Spiritual care concerns: No Meds Home Medications and Allergies Home Medications Medication Instructions Recorded Confirmed Type bimatoprost 0.01 % eye drops 1 drop ophthalmic (eye) HS 04/06/20 08/16/23 History (Lumigan) multivitamin 1 tablet PO QAM 05/05/20 08/16/23 History omega-3 fatty acids 1,000 mg PO HS 05/05/20 08/16/23 History azelastine 137 mcg (0.1 %) nasal 137 mcg intranasal HS 09/12/22 08/16/23 History spray aerosol spironolactone 25 mg tablet See Rx Instructions .Route 01/08/23 08/16/23 Rx .COMPLEX #90 tabs metformin 500 mg tablet 250 mg PO HS #90 tabs 03/13/23 08/16/23 Rx pravastatin 20 mg tablet See Rx Instructions .Route 05/28/23 08/16/23 Rx .COMPLEX #90 tabs mecobalamin (vitamin B12) 1,000 1,000 mcg PO DAILY 06/07/23 08/16/23 History mcg lozenges potassium chloride 20 mEq 20 meq PO BID #90 tabs 06/25/23 08/16/23 Rx tablet,extended release(part/cryst) felodipine 10 mg tablet,extended See Rx Instructions .Route 08/23/23 Rx release 24 hr .COMPLEX #90 tabs Allergies Allergy/AdvReac Type Severity Reaction Status Date / Time iohexol AdvReac Difficulty Verified 07/03/23 13:13 [From contrast - CT, X-RAY] Emain
[2023-08-29 08:55] VITALS: BP 111/59; PULSE 84; RESP 22; O2SAT 99
[2023-08-29 09:05] VITALS: BP 103/63; PULSE 78; RESP 19; O2SAT 98
[2023-08-29 09:15] VITALS: BP 122/74; PULSE 76; RESP 19; O2SAT 98
== END 2023-08-29 09:24 | disposition home or self-care (01) ==
PROVIDERS: PCP Family Medicine; Visit Provider Internal Medicine Gastroenterology
PROC: 0DJD8ZZ Inspection of Lower Intestinal Tract, Via Natural or Artificial Opening Endoscopic (ICD-10-PCS; CPT 45378; principal; 2023-08-29 08:45)
DX: Z12.11 Encounter for screening for malignant neoplasm of colon (principal); K57.30 Diverticulosis of large intestine without perforation or abscess without bleeding; D12.4 Benign neoplasm of descending colon; K64.8 Other hemorrhoids; I10 Essential (primary) hypertension; E11.9 Type 2 diabetes mellitus without complications; E78.00 Pure hypercholesterolemia, unspecified; Z79.84 Long term (current) use of oral hypoglycemic drugs; Z90.79 Acquired absence of other genital organ(s); Z86.79 Personal history of other diseases of the circulatory system; Z80.41 Family history of malignant neoplasm of ovary
CPT/HCPCS: 45385; 82948; 88305; J2371; J2704; J7120

== ENCOUNTER 2023-09-22 08:25 | Outpatient (CLI) | payer MEDICARE, SELFPAY ==
[2023-09-22 09:09] LABS: Alanine Aminotransferase 19 U/L (6-50); Albumin Level 4.3 g/dL (3.5-5.1); Alkaline Phosphatase 67 U/L (38-126); Anion Gap 10 mmol/L (8-16); Aspartate Amino Transferase 21 U/L (17-59); Bilirubin,Total 0.9 mg/dL (0.2-1.3); Blood Urea Nitrogen 27 mg/dL (9-20); Calcium 9.6 mg/dL (8.4-10.2); Carbon Dioxide 27 mmol/L (22-30); Chloride 100 mmol/L (98-107); Cholesterol 174 mg/dL (0-200); Estimated Glomerular Filt Rate > 60; Glucose 187 mg/dL (65-110); HDL Direct 50 mg/dL; Potassium 4.3 mmol/L (3.4-5.0); Sodium 137 mmol/L (137-145); Triglycerides 101 mg/dL (<150)
[2023-09-22 09:20] LABS: LDL Cholesterol Direct 95 mg/dL
[2023-09-22 09:31] LABS: Free T4 Free Thyroxine 1.37 ng/mL (0.78-2.19)
[2023-09-22 12:45] LABS: Hemoglobin A1C 7.9 % (<5.7)
== END 2023-09-22 08:26 | disposition home or self-care (01) ==
LOC: ANHLAB 08:28
PROVIDERS: PCP Family Medicine; Visit Provider Nurse Practitioner
DX: E78.5 Hyperlipidemia, unspecified (principal); E11.9 Type 2 diabetes mellitus without complications; R53.83 Other fatigue
CPT/HCPCS: 36415; 80053; 80061; 83036; 84439; 84443

== ENCOUNTER 2023-12-25 09:47 | Outpatient (CLI) | payer MEDICARE, SELFPAY ==
[2023-12-25 12:46] LABS: Hemoglobin A1C 7.2 % (<5.7)
== END 2023-12-25 09:48 | disposition home or self-care (01) ==
LOC: ANHLAB 09:50
PROVIDERS: PCP Family Medicine; Visit Provider Nurse Practitioner
DX: E11.9 Type 2 diabetes mellitus without complications (principal)
CPT/HCPCS: 36415; 83036

== ENCOUNTER 2024-03-31 08:40 | Outpatient (CLI) | payer MEDICARE, SELFPAY ==
[2024-03-31 09:12] LABS: Alanine Aminotransferase 15 U/L (6-50); Albumin Level 4.4 g/dL (3.5-5.1); Alkaline Phosphatase 59 U/L (38-126); Anion Gap 7 mmol/L (4-12); Aspartate Amino Transferase 20 U/L (17-59); Bilirubin,Total 0.9 mg/dL (0.2-1.3); Blood Urea Nitrogen 23 mg/dL (9-20); Calcium 9.1 mg/dL (8.4-10.2); Carbon Dioxide 28 mmol/L (22-30); Chloride 103 mmol/L (98-107); Cholesterol 164 mg/dL (0-200); Estimated Glomerular Filt Rate > 60; Glucose 166 mg/dL (65-110); HDL Direct 57 mg/dL; Sodium 138 mmol/L (137-145); Triglycerides 81 mg/dL (<150)
[2024-03-31 09:16] LABS: Hemoglobin A1C 6.7 % (<5.7)
[2024-03-31 09:22] LABS: LDL Cholesterol Direct 92 mg/dL
== END 2024-03-31 08:41 | disposition home or self-care (01) ==
LOC: ANHLAB 08:42
PROVIDERS: PCP Nurse Practitioner; Visit Provider Nurse Practitioner
DX: E78.5 Hyperlipidemia, unspecified (principal); E11.9 Type 2 diabetes mellitus without complications
CPT/HCPCS: 36415; 80053; 80061; 83036

== ENCOUNTER 2024-05-19 18:53 | Emergency (ER) | payer MEDICARE, SELFPAY ==
--- NOTE | ~2024-05-19 | XR_ITS ---
EXAMINATION: XR chest 2V Exam Date/Time: 05/19/2024 19:10 CDT HISTORY: CHEST PAIN,DIZZINESS Comparison: 04/28/2019. RESULT: Lines, tubes, and devices: Cholecystectomy clips. Lungs and pleura: Linear and subsegmental bibasilar opacities. Cardiomediastinal silhouette: Stable. Other: No acute osseous or upper abdominal finding. IMPRESSION: Bibasilar atelectasis/consolidation. Reviewed, dictated and finalized at location [facility].
[2024-05-19 18:55] VITALS: BP 143/79; PULSE 81; RESP 20; TEMP 36.3; O2SAT 97
--- NOTE | 2024-05-19 18:55 | ECG_ITS ---
Test Date: 2024-05-19 18:58:53 Measurements Intervals [place] Rate: 75 P: 35 LA: 167 QRS: -3 QRSD: 138 T: -1 QT: 413 QTc: 462 Interpretive Statements SINUS RHYTHM WITH FREQUENT VENTRICULAR PREMATURE COMPLEXES RIGHT BUNDLE BRANCH BLOCK [120+ ms QRS DURATION, UPRIGHT V1, 40+ ms S IN I/aVL/V4/V5/V6] No previous ECG available for comparison Electronically Signed On 05-20-2024 14:36:55 CDT by Teresa Rosario M.D.
[2024-05-19 19:12] LABS: Basophils Absolute Auto 0.1 K/mm3 (0.0-0.1); Basophils Percent Auto 1.2 % (0.2-1.2); Eosinophils Absolute Auto 0.2 K/mm3 (0-0.3); Eosinophils Percent Auto 2.3 % (0-4.4); Hematocrit 47.8 % (42.0-52.0); Hemoglobin 16.3 g/dL (14.0-18.0); Immature Granulocyte Absolute 0.04 K/mm3 (0.00-0.031); Immature Granulocyte Percent A 0.5 % (0-0.5); Lymphocytes Percent Auto 32.1 % (18.3-44.2); Mean Corpuscular HGB Conc 34.1 g/dl (32-36); Mean Corpuscular Hemoglobin 31.4 pg (26-34); Mean Corpuscular Volume 92.1 fl (80-100); Mean Platelet Volume 9.6 fl (7.4-10.4); Monocytes Absolute Auto 0.9 K/mm3 (0.1-0.6); Monocytes Percent Auto 10.9 % (2.6-8.5); Neutrophils Absolute Auto 4.3 K/mm3 (1.3-6.7); Platelet Count Result 214 k/mm3 (150-375); Red Blood Count 5.19 M/mm3 (4.6-6.20); Red Cell Distribution Width 13.2 % (11.5-14.5); White Blood Count 8.1 K/mm3 (4.5-10.0)
[2024-05-19 19:21] LABS: Alanine Aminotransferase 16 U/L (6-50); Albumin Level 4.9 g/dL (3.5-5.1); Alkaline Phosphatase 60 U/L (38-126); Anion Gap 8 mmol/L (4-12); Aspartate Amino Transferase 21 U/L (17-59); Bilirubin,Total 0.9 mg/dL (0.2-1.3); Blood Urea Nitrogen 19 mg/dL (9-20); Calcium 9.2 mg/dL (8.4-10.2); Carbon Dioxide 31 mmol/L (22-30); Chloride 98 mmol/L (98-107); Estimated CRCL calculation 54 ml/min; Estimated Glomerular Filt Rate > 60; Glucose 155 mg/dL (65-110); Lipase 88 U/L (23-300); Potassium 4.1 mmol/L (3.4-5.0); Sodium 137 mmol/L (137-145)
[2024-05-19 19:28] LABS: Partial Thromboplastin Time 24.9 Seconds (22.3-36.8)
[2024-05-19 19:29] LABS: Prothrombin Time 13.3 Seconds (11.1-14.7)
[2024-05-19 19:32] LABS: Troponin I < 0.012 ng/mL (0.000-0.034)
[2024-05-19 22:17] VITALS: BP 188/92; PULSE 72; RESP 12; O2SAT 96
[2024-05-19] MEDS: ASPIRIN 81 MG CHEWABLE TABLET 324 MG PO (22:26)
--- NOTE | 2024-05-19 22:32 | ECG_ITS ---
Test Date: 2024-05-19 22:42:39 Measurements Intervals [place] Rate: 56 P: 33 MD: 179 QRS: -16 QRSD: 145 T: -1 QT: 454 QTc: 442 Interpretive Statements SINUS BRADYCARDIA RIGHT BUNDLE BRANCH BLOCK [120+ ms QRS DURATION, UPRIGHT V1, 40+ ms S IN I/aVL/V4/V5/V6] Compared to ECG 05/19/2024 18:58:53 NO SIGNIFICANT CHANGES Electronically Signed On 05-20-2024 14:41:48 CDT by Teresa Rosario M.D.
[2024-05-19 22:36] VITALS: O2SAT 96
--- NOTE | 2024-05-19 23:02 | PC.NURSE ---
care and report given to PERCY Betancourt. all questions answered.
[2024-05-19 23:03] LABS: Troponin I < 0.012 ng/mL (0.000-0.034)
--- NOTE | 2024-05-19 23:23 | ED.GENADULT ---
HPI - General Adult General Chief complaint: Chest Pain Stated complaint: CHEST PAIN,DIZZINESS Time Seen by Provider: 05/19/24 22:55 History of Present Illness HPI narrative: Patient is a 84-year-old gentleman who presents emergency department with chief complaint of chest pain. Patient reports that he started yesterday and had some episodes of sharp type pain in the left side of his chest patient recently has had some episodes of lightheadedness and dizziness reports that that is a not uncommon thing and he has history of vertigo patient also reports he has had some palpitations and had some premature beats that he has had a Holter monitor test for. The patient states that he is feeling much better at this time Related Data Home Medications Medication Instructions Recorded Confirmed bimatoprost 0.01 % eye drops 1 drop ophthalmic (eye) HS 04/06/20 09/25/23 (Lumigan) multivitamin 1 tablet PO QAM 05/05/20 04/04/24 omega-3 fatty acids 1,000 mg PO HS 05/05/20 04/04/24 azelastine 137 mcg (0.1 %) nasal 137 mcg intranasal HS 09/12/22 04/04/24 spray mecobalamin (vitamin B12) 1,000 1,000 mcg PO DAILY 06/07/23 04/04/24 mcg lozenges Allergies Allergy/AdvReac Type Severity Reaction Status Date / Time iohexol AdvReac Difficulty Verified 04/04/24 07:55 [From contrast - CT, X-RAY] Breathing/RASH/HOT FLUSHED FEELING Review of Systems Review of Systems: A 10 system review of systems was completed on the patient and is negative except for what is stated in the HPI. Nursing and ancillary documentation was reviewed. [facility] Past Medical History Medical History Arthritis of right knee COVID-19 Diverticulitis Essential (primary) hypertension Gastro-esophageal reflux disease without esophagitis Hx of adenomatous colonic polyps Irregular heart beat Lump in the abdomen Pure hypercholesterolemia Right bundle branch block Suprapubic tenderness Type 2 diabetes mellitus without complications Surgical History Surgical History H/O inguinal hernia repair Right Inguinal Hernia repair on 03/29/2022. History of prostatectomy Family History Family History Mother Patient's mother is Family history of malignant neoplasm of ovary Father Patient's father is Family history of malignant melanoma Sibling Family history of malignant melanoma Other Hypertension Social History Social History Smoking status: Never smoker Second hand tobacco smoke exposure: No Alcohol intake: never Substance use: never Substance use type: does not use Lack of Transportation: No Lack of Food: Never True Current Housing: I Have Housing Concerned About Future Housing: No Difficulty Paying Gas/Electric Bills: No Difficulty Paying for Meds: No Currently Unemployed: No Education: High School Diploma/GED Difficulty w/ Childcare or Family Care: No Living arrangements: with family Spiritual care concerns: No Exam Narrative: GENERAL: Well-appearing, well-nourished, and in no acute distress. HEAD: Normocephalic, atraumatic. EYES: PERRLA and EOMI. ENT: Nares clear, no rhinorrhea or epistaxis. Mucous membranes moist. NECK: Supple. CHEST: Clear to auscultation. No respiratory distress. HEART: Regular rate and rhythm. No murmur heard. Normal peripheral pulses. ABDOMEN: Soft, nontender, nondistended, normal active bowel sounds. EXTREMITIES: Normal range of motion. No edema. SKIN: Warm, dry, no rash. NEURO: No focal deficits. Alert and oriented x3. PSYCH: Normal mood and affect. Course Vital Signs Vital signs: Vital Signs Temperature 36.3 C L 05/19/24 18:55 Pulse Rate 81 05/19/24 18:55 Respiratory Rate 20
== END 2024-05-19 23:44 | disposition home or self-care (01) ==
PROVIDERS: Preventive Medicine Aerospace Medicine; Emergency Provider Emergency Medicine; PCP Internal Medicine
DX: R07.9 Chest pain, unspecified (principal); I49.3 Ventricular premature depolarization; M19.90 Unspecified osteoarthritis, unspecified site; I10 Essential (primary) hypertension; K21.9 Gastro-esophageal reflux disease without esophagitis; E11.9 Type 2 diabetes mellitus without complications
CPT/HCPCS: 36415; 71046; 80053; 83690; 84484; 85025; 85610; 85730; 93005; 99284; A9270

== ENCOUNTER 2025-03-24 19:29 | Emergency (ER) | payer MEDICARE, SELFPAY ==
--- NOTE | ~2025-03-24 | XR_ITS ---
XR chest 1V portable Ordering provider: Laurel Reese MD History: 85 years Male with . cp RADIATES DOWN LEFT ARM AFTER CUTTING GRASS . Comparison: May 19, 2024 FINDINGS: MEDIASTINUM: The cardiac silhouette is not enlarged. LUNGS: No effusions or pneumothorax. Bibasilar opacification suggestive of atelectasis versus pneumon ia. OTHER: No free air under the diaphragm. Degenerative changes of the spine. IMPRESSION: Bibasilar atelectasis versus pneumonia. Reviewed, dictated and finalized at location A.
--- OUTSIDE RECORDS SUMMARY | 2025-03-24 19:31 | XMS_ITS | Referral Summary ---
Author [place] [facility] [place] [address] Address [address] [place] [address] Care Team Providers Care Arc Trimmer Name Role Phone Breezy Trinidad Primary Care Provider [phone] Allergies Active Allergy Reactions Criticality Noted Date Comments Iodinated Contrast Media Shortness of br eath,Flushing (skin) High 05/06/2020 Iodine Rash Medium 04/03/2022 Medications felodipine (PLENDIL) 10 mg 24 hr tablet Take 1 tablet (10 mg total) by mouth daily Active KLOR-CON M20 20 mEq CR tablet Take 1 tablet (20 mEq total) by mouth 2 (two) times a day 3 9 Active pravastatin (PRAVACHOL) 20 mg tablet Take 1 tablet (20 mg total) by mouth daily 1 9 Active spironolactone (ALDACTONE) 25 mg tablet Take 1 tablet (25 mg total) by mouth daily Active Lumigan 0.01 % ophthalmic drops 0 Active multivitamin capsule Take 1 capsule by mouth daily Active salmon oiL-omega-3 fatty acids ([place] Oil-1000) 1,000-200 mg capsule [place] Oil-1000 Acti ve azelastine (ASTELIN) 137 mcg (0.1 %) nasal sprayIndication s:Vasomotor rhinitis Administer 2 sprays into each nostril 2 (two) times a day Use in each nostril as directed 360 mL 3 2 Active Additional Information Patient not taking.Reported on 11/28/2024 cyanocobalamin (Vitamin B-12) 1,000 mcg tabletIndicatio ns:Prevention of Vitamin B12 Deficiency Take 1 tablet (1,000 mcg total) by mouth daily Active psyllium 0.52 gram capsule Take 1 capsule (0.52 g total) by mouth daily Active latanoprost (XALATAN) 0.005 % ophthalmic solution INSTILL 1 DROP INTO EACH EYE ONCE DAILY AT BEDTIME 4 Active pioglitazone (ACTOS) 15 mg tablet Take 1 tablet (15 mg total) by mouth daily 5 Active Active Problems Problem Noted Date Diagnosed Date Dysphonia 04/18/2023 Assessment & Plan (04/18/2023 11:54 AM CDT): 50 ounces of caffeine free and soda free fluid daily Aortic valve sclerosis 11/22/2021 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 Assessment & Plan (04/18/2023 11:54 AM CDT): Continue Astelin Assessment & Plan (04/03/2022 1:19 PM CDT): Protect Hearing Continue Astelin daily follow up in one year Assessment & Plan (12/03/2020 2:56 PM WATER REUSE PROGRAM MANAGER): White noise to cancel out ringing sound Hearing test - [facility] Astelin (azelastine) 2 sprays into each nostril while looking down over the sink, do not sniff in or blow nose after use for at least 30 minutes twice daily Bilateral hearing loss 12/03/2020 Assessment & Plan (12/03/2020 2:58 PM WATER REUSE PROGRAM MANAGER): White noise to cancel out ringing sound Hearing test - [facility] Astelin (azelastine) 2 sprays into each nostril while looking down over the sink, do not sniff in or blow nose after use for at least 30 minutes twice daily for at least 6 weeks Dysfunction of both eustachian tubes 12/03/2020 Assessment & Plan (12/03/2020 2:57 PM WATER REUSE PROGRAM MANAGER): White noise to cancel out ringing sound Hearing test - [facility] Astelin (azelastine) 2 sprays into each nostril while looking down over the sink, do not sniff in or blow nose after use for at least 30 minutes twice daily RBBB 06/24/2019 PVC (premature ventricular contraction) 06/24/20 19 Social History Tobacco Use Types Packs/Day Years Used Date Smoking Tobacco: Never Smokeless Tobacco: Never Tobacco Cessation:Counseling Given: Not Answered Alcohol Use Standard Drinks/Week Comments Never 0 (1 standard drink = 0.6 oz pur e alcohol) AUDIT-C Answer Date Recorded Frequency of Alcohol Consumption Never 06/24/2019 Average Number of Drinks Not on file 019 Frequency of Binge Drinking Not on file 06/15 Sex and Gender Information Value Date Recorded Sex Assigned at Not on file Legal Sex Male 3:28 AM WATER REUSE PROGRAM MANAGER Gender Identity Not on file Sexual Orientation Not on file Last Filed Vital Signs Vital Sign Reading Time Taken Comments Blood Pressure 148/82 11/28/2024 2:10 PM WATER REUSE PROGRAM MANAGER Pulse 67 11/28/2024 2:10 PM WATER REUSE PROGRAM MANAGER Temperature 36.9 C (98.4 F) 05/19/2024 6:17 PM CDT Respiratory Rate 16 05/21/2024 8:48 AM CDT Oxygen Saturation 96% 11/28/2024 2:10 PM WATER REUSE PROGRAM MANAGER Inhaled Oxygen Concentration - - Weight 77.1 kg (170 lb) 11/28/2024 2:10 PM WATER REUSE PROGRAM MANAGER Height 180.3 cm (5' 11) 11/28/2024 2:10 PM WATER REUSE PROGRAM MANAGER Body Mass Index 23.71 11/28/2024 2:10 PM WATER REUSE PROGRAM MANAGER Plan of Treatment Not on file Insurance MEDICARE MEDICARE [facility] MEDICARE SUPPLEMENT Care Teams Arc Trimmer Relationship Specialty Start Date End Date Breezy Trinidad DO PCP - General Internal Medicine 05/08/24
--- OUTSIDE RECORDS SUMMARY | 2025-03-24 19:31 | XMS_ITS | Clinical Summary ---
Author Organization [facility] Address [address] [place] [address] Care Team Providers Care Animal Science Instructor Name Role Phone Keanu Yao MD Primary Care Provider [phone] Source Comments [facility],non-owned Affiliates and Associated Physician Practices is amultiple site organization consisting of ambulatory clinics and hospital sitesin [place], [place], [place] and [place]. This disclosure is being madepursuant to the Care Everywhere program and may not contain all information available regarding this patient. Last updated 18.[facility] j-Grab Social History Tobacco Use Types Packs/Day Years Used Date Smoking Tobacco: Never Assessed Sex and Gender Information Value Date Recorded Sex Assigned at Not on file Legal Sex Male 5:51 PM PROJECT ECONOMIST Gender Identity Not on file Sexual Orientation Not on file Plan of Treatment Health Maintenance Due Date Last Done Comments MEDICARE AWV 12 MONTHS 1939 DTAP/TDAP/TD VACCINES (1 - Tdap) 1958 PNEUMOCOCCAL VACCINE 50+ (1 of 1 - PCV) 1989 ZOSTER VACCINE (1 of 2) 1989 Respiratory Syncytial Virus (RSV) Vaccine Pt: or over 60 yrs (1 - 1-dose 75+ series) 2014 COVID-19 VACCINE ( - 2023-2 5 season) 2024 DEPRESSION SCREENING 10/15/2024 INFLUENZA VACCINE (Season Ended) 2025 HEPATITIS B VACCINE Aged Out No longe r eligible based on patient's age to complete this topic HIB VACCINE Aged Out No longer eligi ble based on patient's age to complete this topic HPV VACCINE Aged Out No longer eligi ble based on patient's age to complete this topic MENINGOCOCCAL (Group B) VACC INE SHARED DECISION-MAKING Aged Out No longer eligibl e based on patient's age to complete this topic MENINGOCOCCAL GROUPS A/C/Y/W VACCINE Aged Out No longer eligible b ased on patient's age to complete this topic Insurance MEDICARE ANTHEM MEDICARE ANTHEM MEDICARE ANTHEM MEDICARE ANTHEM MEDICARE ANTHEM Care Teams Animal Science Instructor Relationship Specialty Start Date End Date Keanu Yao MD [address] [place] [address] PCP - General 08/11/08
--- OUTSIDE RECORDS SUMMARY | 2025-03-24 19:31 | XMS_ITS | Encounter Summary ---
Author Organization [facility] Address [address] [facility] [place] [address] Care Team Providers Care Restaurant Server Name Role Phone Keanu Yao MD Primary Care Provider [phone] Encounter Details Date Type Department Care Team (Late st Contact Info) Description 11/23/2022 Lab Requisition [facility] DermPath Lab [address] [facility] [place] [address] Addi Espinosa MD [address] [place] [address] Social History Tobacco Use Types Packs/Day Years Used Date Smoking Tobacco: Never Assessed Sex and Gender Information Value Date Recorded Sex Assigned at Not on file Legal Sex Male 5:51 PM FIELD IRONWORKER Gender Identity Not on file Sexual Orientation Not on file documented as of this encounter Plan of Treatment Not on file documented as of this encounter Procedures Procedure Name Priority Date/Time Associated Diagnosis Comments DERMATOPATHOLOGY Routine 11/21/2022 12:0 0 AM FIELD IRONWORKER documented in this encounter Results * DERMATOPATHOLOGY (11/21/2022 12:00 AM FIELD IRONWORKER) Case Report Dermatopathology Report Case: [id number] Authorizing Provider: Addi Espinosa MD Collected: 11/21/2022 12:00 AM Ordering Location: [facility] Derm[facility] Lab Received: 11/23/2022 06:57 AM Pathologist: Jahaira Soliz MD Specimens: A) - Skin, right cheek below eye B) - Skin, right paraspinal 4:43 PM FIELD IRONWORKER DERMATOPATHOLOGY LABORATORY Final Diagnosis Specimen A. SKIN, right cheek below eye: SEBACEOUS HYPERPLASIA (L73.8) Specimen B. SKIN, right paraspinal: DERMAL FIBROSIS (L90.5) (see microscopic description and comment) 3 4:43 PM [facility] DERMATOPATHOLOGY LABORATORY at 1643 FIELD IRONWORKER Clinical History A-B: R/O BCC, SCC 3 4:43 PM [facility] DERMATOPATHOLOGY LABORATORY Gross Description Specimen A: Received is one formalin filled container labeled with the patient's name and designated right cheek below eye. The specimen consists of a shave biopsy measuring 5x4x1 mm. Jar 0. Specimen B: Received is one formalin filled container labeled with the patient's name and designated right paraspinal. The specimen consists of a shave biopsy measuring 8x7x1 mm. Jar 0. 3 4:43 PM [facility] DERMATOPATHOLOGY LABORATORY Microscopic Description Specimen A. SKIN, right cheek below eye: There are prominent sebaceous gland lobules surrounding a dilated hair follicle. Specimen B. SKIN, right paraspinal: There is focal dermal fibrosis. Factor XIIIa immunostain is positive in scattered dermal fibroblasts. Additional deeper sections were obtained and reviewed. COMMENT: The histologic differential diagnosis includes dermal scar, and the superficial aspect of a dermatofibroma. 3 4:43 PM [facility] DERMATOPATHOLOGY LABORATORY Disclaimer An external and internal positive and negative controls are appropriate for the histochemical, immunohistochemical and immunofluorescence stain(s) in this case (if any), except where stated explicitly. The performance characteristics of the stain(s) cited in this report were developed and its performance characteristic determined by the Dermatopathology Laboratory at [facility], directed by Dr. Shell Hu. These tests need not be, and therefore are not, approved by the [place] Food and Drug Administration. The tests are used for clinical purposes. Billing Codes Specimen Charges Stain Charges 68655 67214 1 1 76228 1 3 4:43 PM [facility] DERMATOPATHOLOGY LABORATORY Embedded Images 3 4:43 PM [facility] DERMATOPATHOLOGY LABORATORY Pathology/Cytology TISSUE SPECIMEN FROM SKIN / Unknown 11/21/2022 11/23/2022 6:57 AM [facility] Miscellaneous samples (specimen) TISSUE SPECIMEN FROM SKIN / Unknown 11/21/2022 11/23/2022 6:57 AM FIELD IRONWORKER us Addi Espinosa MD LAB - PATHOLOGY/CYTOLOGY ORD ERABLES Final Result DERMATOPATHOLOGY LABORATORY [facility] - Department of Dermatology [facility] Specialized Medicine [address] [place] [address], [address] [phone] documented in this encounter Visit Diagnoses Not on filedocumented in this encounter Care Teams Restaurant Server Relationship Specialty Start Date End Date Keanu Yao MD [address] [facility] [address] [place] [address] PCP - General 08/11/08 documented as of this encounter
--- OUTSIDE RECORDS SUMMARY | 2025-03-24 19:31 | XMS_ITS | Encounter Summary ---
Author Organization [facility] Address [address] [facility] [place] [address] Care Team Providers Care Factory Clerk Name Role Phone Keanu Yao MD Primary Care Provider Encounter Details Date Type Department Care Team (Late st Contact Info) Description 12/16/2020 Lab Requisition [facility] DermPath Lab [address] [facility] [place] [address] Addi Espinosa MD [address] [place] [address] Social History Tobacco Use Types Packs/Day Years Used Date Smoking Tobacco: Never Assessed Sex and Gender Information Value Date Recorded Sex Assigned at Not on file Legal Sex Male 5:51 PM MATHEMATICIAN Gender Identity Not on file Sexual Orientation Not on file documented as of this encounter Plan of Treatment Not on file documented as of this encounter Procedures Procedure Name Priority Date/Time Associated Diagnosis Comments DERMATOPATHOLOGY Routine 12/15/2020 3:33 AM MATHEMATICIAN documented in this encounter Results * DERMATOPATHOLOGY (12/15/2020 3:33 AM MATHEMATICIAN) Case Report Dermatopathology Report Case: [id number] Authorizing Provider: Addi Espinosa MD Collected: 12/15/2020 03:33 AM Ordering Location: [facility] DermPath Lab Received: 12/16/2020 01:27 PM Pathologist: Sherley Hu MD Specimens: A) - Skin, below right earlobe B) - Skin, right post base of neck 5:19 PM MATHEMATICIAN DERMATOPATHOLOGY LABORATORY Final Diagnosis Specimen A. SKIN, below right earlobe: BASAL CELL CARCINOMA, NODULAR TYPE (C44.212) Specimen B. 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 B: R/O dysplastic nevus. 5:19 PM [facility] DERMATOPATHOLOGY LABORATORY Gross Description Specimen A: Received is one formalin filled container labeled with the patient's name and designated below right earlobe. The specimen consists of a shave biopsy measuring [id number]. Jar 0. Specimen B: Received is one formalin filled container labeled with the patient's name and designated right post base of neck. The specimen consists of a shave biopsy measuring 91j7o1an. Jar 0. 5:19 PM [facility] DERMATOPATHOLOGY LABORATORY Microscopic Description Specimen A. SKIN, below right earlobe: Within the dermis there are aggregates of basaloid cells with a high nuclear to cytoplasmic ratio and peripheral palisading. Specimen B. SKIN, right post base of neck: There is a proliferation of melanocytes distributed in an irregular pattern along the dermal-epidermal junction with single cells predominating. Extension down the follicular epithelium and focal areas of confluence are present. This melanocytic proliferation is highlighted on MART-1/Melan-A. This lesion is not present at the sampled margin of the specimen. COMMENT: This case was also reviewed by Dr. Katiana Moyer, who agrees. 5:19 PM [facility] DERMATOPATHOLOGY LABORATORY Disclaimer An external and internal positive and negative controls are appropriate for the histochemical, immunohistochemical and immunofluorescence stain(s) in this case (if any), except where stated explicitly. The performance characteristics of the stain(s) cited in this report were developed and its performance characteristic determined by the Dermatopathology Laboratory at [facility], directed by Dr. Shell Hu. These tests need not be, and therefore are not, approved by the [place] Food and Drug Administration. The tests are used for clinical purposes. Billing Codes Specimen Charges Stain Charges 39483 20287 1 1 12050 1 1 5:19 PM [facility] DERMATOPATHOLOGY LABORATORY Embedded Images 5:19 PM MATHEMATICIAN DERMATOPATHOLOGY LABORATORY Pathology/Cytology TISSUE SPECIMEN FROM SKIN / Unknown 12/15/2020 3:33 AM MATHEMATICIAN 12/16/2020 1:27 PM MATHEMATICIAN Miscellaneous samples (specimen) TISSUE SPECIMEN FROM SKIN / Unknown 12/15/2020 3:33 AM MATHEMATICIAN 12/16/2020 1:27 PM MATHEMATICIAN Addi Espinosa MD LAB - PATHOLOGY/CYTOLOGY ORD ERABLES Final Result DERMATOPATHOLOGY LABORATORY [facility] - Department of Dermatology [facility] Specialized Medicine [address] [place] [address], [address] [phone] documented in this encounter Visit Diagnoses Not on filedocumented in this encounter Care Teams Factory Clerk Relationship Specialty Start Date End Date Keanu Yao MD [address] [facility] [address] [place] [address] PCP - General 08/11/08 documented as of this encounter
--- OUTSIDE RECORDS SUMMARY | 2025-03-24 19:31 | XMS_ITS | Encounter Summary ---
Author Organization [facility] Address [address] [facility] [place] [address] Care Team Providers Care Passenger Brakeman Name Role Phone Keanu Yao MD Primary Care Provider [phone] Encounter Details Date Type Department Care Team (Late st Contact Info) Description 04/15/2018 Lab Requisition [facility] Care DermPath Lab [address] [facility] [place] [address] Addi Espinosa MD [address] [place] [address] Social History Tobacco Use Types Packs/Day Years Used Date Smoking Tobacco: Never Assessed Sex and Gender Information Value Date Recorded Sex Assigned at Not on file Legal Sex Male 5:51 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 OWNER Gender Identity Not on file Sexual Orientation Not on file documented as of this encounter Plan of Treatment Not on file documented as of this encounter Procedures Procedure Name Priority Date/Time Associated Diagnosis Comments DERMATOPATHOLOGY Routine 04/12/2018 12:0 0 AM CDT documented in this encounter Results * DERMATOPATHOLOGY (04/12/2018 12:00 AM CDT) Case Report Dermatopathology Report Case: [id number] Authorizing Provider: Addi Espinosa MD Collected: 04/12/2018 12:00 AM Pathologist: Helen Guajardo MD Received: 04/15/2018 11:29 AM Specimens: A) - Skin, right sikhism B) - Skin, left nose 8 1:33 PM CDT DERMATOPATHOLOGY LABORATORY Final Diagnosis Specimen A. SKIN, right sikhism: SEBORRHEIC KERATOSIS (L82.1) Specimen B. SKIN, left nose: SQUAMOUS CELL CARCINOMA, WELL DIFFERENTIATED (C44.321) 1:33 PM CDT DERMATOPATHOLOGY LABORATORY at 1333 CDT Clinical History A: R/O ISK, BCC, SCC. B: R/O BCC. 1:33 PM CDT DERMATOPATHOLOGY LABORATORY Gross Description Specimen A: Received is one formalin filled container labeled with the patient's name and designated right sikhism. The specimen consists of a shave biopsy measuring [id number]. Jar 0. Specimen B: Received is one formalin filled container labeled with the patient's name and designated left nose. The specimen consists of a shave biopsy measuring [id number]. Jar 0. 1:33 PM CDT DERMATOPATHOLOGY LABORATORY Microscopic Description Specimen A. SKIN, right sikhism: Sections show an acanthotic lesion composed of relatively uniform keratinocytes. There is hyperkeratosis and pseudo horn cysts formation. Specimen B. SKIN, left nose: Arising in the epidermis and extending into the dermis there are irregularly shaped aggregates of keratinocytes showing evidence of premature cornification. 1:33 PM CDT DERMATOPATHOLOGY LABORATORY Disclaimer An external and internal positive and negative controls are appropriate for the histochemical, immunohistochemical and immunofluorescence stain(s) in this case (if any), except where stated explicitly. The performance characteristics of the stain(s) cited in this report were developed and its performance characteristic determined by the Dermatopathology Laboratory at [facility]. These tests need not be, and therefore are not, approved by the [place] Food and Drug Administration. The tests are used for clinical purposes. Billing Codes Specimen Charges Stain Charges 33512 96134 1 1 1:33 PM CDT DERMATOPATHOLOGY LABORATORY Embedded Images 1:33 PM CDT DERMATOPATHOLOGY LABORATORY Pathology/Cytology TISSUE SPECIMEN FROM SKIN / Unknown 04/12/2018 04/15/2018 11:29 AM CDT Miscellaneous samples (specimen) TISSUE SPECIMEN FROM SKIN / Unknown 04/12/2018 04/15/2018 11:29 AM CDT us Addi Espinosa MD LAB - PATHOLOGY/CYTOLOGY ORD ERABLES Final Result DERMATOPATHOLOGY LABORATORY [facility] - Department of Dermatology [address] [facility], [address] [place] [address], [facility] [phone] documented in this encounter Visit Diagnoses Not on filedocumented in this encounter Care Teams Passenger Brakeman Relationship Specialty Start Date End Date Keanu Yoa MD [address] [facility] [address] [place] [address] PCP - General 08/11/08 documented as of this encounter
--- OUTSIDE RECORDS SUMMARY | 2025-03-24 19:31 | XMS_ITS | Clinical Summary ---
Author Organization [facility] [address] Address [address] [place] [address] Care Team Providers Care Roll Off Driver Name Role Phone Breezy Trinidad DO Primary Care Provider [phone] Allergies Active Allergy Reactions Criticality Noted Date [...] mouth daily Active salmon oiL-omega-3 fatty acids (Monroe Oil-1000) 1,000-200 mg capsule Monroe Oil-1000 Acti ve azelastine (ASTELIN) 137 mcg [...] year Assessment & Plan (12/03/2020 2:56 PM COLON AND RECTAL SURGEON): White noise to cancel out ringing sound Hearing test - [facility] Astelin (azelastine) 2 sprays into each nostril while looking down over the sink, do not sniff in or blow nose after use for at least 30 minutes twice daily Bilateral hearing loss 12/03/2020 Assessment & Plan (12/03/2020 2:58 PM COLON AND RECTAL SURGEON): White noise to cancel out ringing sound Hearing test - [facility] Astelin (azelastine) 2 sprays into each nostril while looking down over the sink, do not sniff in or blow nose after use for at least 30 minutes twice daily for at least 6 weeks Dysfunction of both eustachian tubes 12/03/2020 Assessment & Plan (12/03/2020 2:57 PM COLON AND RECTAL SURGEON): White noise to cancel out ringing sound Hearing test - [facility] Astelin (azelastine) 2 sprays into each nostril while looking down over the sink, do not sniff in or blow nose after use for at least 30 minutes twice daily RBBB 06/24/2019 PVC (premature ventricular contraction) 06/24/20 19 Surgical History Surgery Date Site/Laterality Comments GALLBLADDER SURGERY PROSTATECTOMY Medical History Medical History Date Comments Heart murmur PVS (pulmonary valve stenosis) Chest pain Rbbb Family History Medical History Relation Name Comments Suicide Completion Father Relation Name Status Comments Brother (Age 48) cancer Father Mother (Age 74) cancer Social History Tobacco Use Types Packs/Day Years [...] on file Legal Sex Male 3:28 AM COLON AND RECTAL SURGEON Gender Identity Not on file Sexual Orientation Not on file Obstetrics History Last Filed Vital Signs Vital Sign Reading Time Taken Comments Blood Pressure 148/82 11/28/2024 2:10 PM COLON AND RECTAL SURGEON Pulse 67 11/28/2024 2:10 PM COLON AND RECTAL SURGEON Temperature 36.9 C (98.4 F) 05/19/2024 6:17 PM CDT Respiratory Rate 16 05/21/2024 8:48 AM CDT Oxygen Saturation 96% 11/28/2024 2:10 PM COLON AND RECTAL SURGEON Inhaled Oxygen Concentration - - Weight 77.1 kg (170 lb) 11/28/2024 2:10 PM COLON AND RECTAL SURGEON Height 180.3 cm (5' 11) 11/28/2024 2:10 PM COLON AND RECTAL SURGEON Body Mass Index 23.71 11/28/2024 2:10 PM COLON AND RECTAL SURGEON Plan of Treatment Health Maintenance Due Date Last Done Comments Depression Screening 1939 Fall Risk Assessment 1940 DTaP/Tdap/Td Vaccine (1 - Tdap) 1950 Hepatitis B Screening 1957 Pneumococcal vaccine 65+ (1 of 1 - PCV) 1989 Zoster Vaccine (1 of 2) 1989 Well Visit 65+ 2004 Covid-19 Vaccine ( season) 2024 10/14/2021, 02/08/2021, 01/07/2021 Influenza Vaccine (Season Ended) 2025 Insurance MEDICARE MEDICARE BLUE CROSS MEDICARE SUPPLEMENT Care Teams Roll Off Driver Relationship Specialty Start Date End Date Breezy Trinidad DO PCP - General Internal Medicine 05/08/24
--- OUTSIDE RECORDS SUMMARY | 2025-03-24 19:31 | XMS_ITS | Continuity of Care Document ---
Author Organization [facility] Address [address] [place] [address] Phone Care Team Providers Care Restaurant Kitchen And Service Manager Name Role Phone Lotus Adam Unavailable Unavailable Advance Directives Directive Yes / No Effective Date File Name No Information Encounters Encounter Description Practice Location Reason(s) For Visit Diagnoses Date Provider Providers Copied on Encounter Formerly [facility], [address], [place], [place], [id number], [place] tel:[phone] [facility] ([facility]) No Information Sep-3 0-200 3 Kia Gautam. [address] , [address], [place], [address], [place]. tel:[phone] Family History Family Member Type Diagnosis Age [...]
--- OUTSIDE RECORDS SUMMARY | 2025-03-24 19:31 | XMS_ITS | Encounter Summary ---
Author Organization [facility] Address [address] [place] [address] Care Team Providers Care Storage Wharfage Clerk Name Role Phone Keanu Yao MD Primary Care Provider [phone] Encounter Details Date Type Department Care Team (Late st Contact Info) Description 02/14/2018 Lab Requisition [facility] Care DermPath Lab [address] [facility] [place] [address] Addi Espinosa MD [address] [place] [address] Social History Tobacco Use Types Packs/Day Years Used Date Smoking Tobacco: Never Assessed Sex and Gender Information Value Date Recorded Sex Assigned at Not on file Legal Sex Male 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 Gender Identity Not on file Sexual Orientation Not on file documented as of this encounter Plan of Treatment Not on file documented as of this encounter Procedures Procedure Name Priority Date/Time Associated Diagnosis Comments DERMATOPATHOLOGY Routine 02/13/2018 12:0 0 AM CDT documented in this encounter Results * DERMATOPATHOLOGY (02/13/2018 12:00 AM CDT) Case Report Dermatopathology Report Case: [id number] Authorizing Provider: Addi Espinosa MD Collected: 02/13/2018 12:00 AM Pathologist: Helen Guajardo MD Received: 02/14/2018 01:42 PM Specimen: Skin, right chest 8 1:47 PM CDT DERMATOPATHOLOGY LABORATORY Final Diagnosis Specimen A. 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 Check margins. 1:47 PM CDT DERMATOPATHOLOGY LABORATORY Gross Description Specimen A: Received is one formalin filled container labeled with the patient's name and designated right chest. The specimen consists of a shave biopsy measuring [id number], the margin is inked green. Jar 0. 1:47 PM CDT DERMATOPATHOLOGY LABORATORY Microscopic Description Specimen A. SKIN, right chest: This is a compound nevus. There is melanin pigment in the stratum corneum. There is architectural disorder characterized by a lentiginous proliferation of melanocytes between irregular nevus nests of cells along the dermal epidermal junction. There is underlying fibroplasia of the papillary dermis. The intradermal component is bland in appearance and matures with depth. (Compound Cayden's Nevus or Compound Dysplastic Nevus) This lesion is not present at the sampled margin of the specimen. 1:47 PM T DERMATOPATHOLOGY LABORATORY Disclaimer An external and internal positive and negative controls are appropriate for the histochemical, immunohistochemical and immunofluorescence stain(s) in this case (if any), except where stated explicitly. The performance characteristics of the stain(s) cited in this report were developed and its performance characteristic determined by the Dermatopathology Laboratory at [facility]. These tests need not be, and therefore are not, approved by the [place] Food and Drug Administration. The tests are used for clinical purposes. Billing Codes Specimen Charges Stain Charges 81320 1 1:47 PM CDT DERMATOPATHOLOGY LABORATORY Embedded Images 1:47 PM CDT DERMATOPATHOLOGY LABORATORY Pathology/Cytolog y TISSUE SPECIMEN FROM SKIN / Unknown 02/13/2018 02/14/2018 1:42 PM CDT Addi Espinosa MD LAB - PATHOLOGY/CYTOLOGY ORD ERABLES Final Result DERMATOPATHOLOGY LABORATORY [facility] - Department of Dermatology [address] [place] [address] 5th Floor Lab [address] [phone] documented in this encounter Visit Diagnoses Not on filedocumented in this encounter Care Teams Storage Wharfage Clerk Relationship Specialty Start Date End Date Keanu Yao MD [address] [facility] [address] [facility] [address] [place] [address] PCP - General 08/11/08 documented as of this encounter
--- OUTSIDE RECORDS SUMMARY | 2025-03-24 19:31 | XMS_ITS | Encounter Summary ---
Author Organization [facility] Address [address] [place] [address] Care Team Providers Care Table Inspector Name Role Phone Keanu Yao MD Primary Care Provider [phone] Encounter Details Date Type Department Care Team (Late st Contact Info) Description 10/21/2021 Lab Requisition [facility] DermPath Lab [address] [facility], [facility] [place] [address] Addi Espinosa MD [address] [place] [address] Social History Tobacco Use Types Packs/Day Years Used Date Smoking Tobacco: Never Assessed Sex and Gender Information Value Date Recorded Sex Assigned at Not on file Legal Sex Male 5:51 PM PROGRAM ENGAGEMENT DIRECTOR Gender Identity Not on file Sexual Orientation Not on file documented as of this encounter Plan of Treatment Not on file documented as of this encounter Procedures Procedure Name Priority Date/Time Associated Diagnosis Comments DERMATOPATHOLOGY Routine 10/19/2021 12:0 0 AM PROGRAM ENGAGEMENT DIRECTOR documented in this encounter Results * DERMATOPATHOLOGY (10/19/2021 12:00 AM PROGRAM ENGAGEMENT DIRECTOR) Case Report Dermatopathology Report Case: [id number] Authorizing Provider: Addi Espinosa MD Collected: 10/19/2021 12:00 AM Ordering Location: [facility] DermPath Lab Received: 10/21/2021 12:25 PM Pathologist: Beth Jo MD Specimen: Skin, right superior pretibia 11:58 AM PROGRAM ENGAGEMENT DIRECTOR DERMATOPATHOLOGY LABORATORY Final Diagnosis Specimen A. SKIN, right superior pretibia: DERMAL HEMORRHAGE (I99.8) DERMAL SCAR (L90.5) (see microscopic description) 11:58 AM [facility] DERMATOPATHOLOGY LABORATORY at 1158 PROGRAM ENGAGEMENT DIRECTOR Clinical History R/O BCC, SCC, hemangioma. 11:58 AM [facility] DERMATOPATHOLOGY LABORATORY Gross Description Specimen A: Received is one formalin filled container labeled with the patient's name and designated right superior pretibia. The specimen consists of a shave biopsy measuring [id number]. Jar 0. 11:58 AM [facility] DERMATOPATHOLOGY LABORATORY Microscopic Description Specimen A. SKIN, right superior pretibia: Sections show dermal hemorrhage with scattered hemosiderophages. There are fibroblasts and collagen bundles oriented parallel to the skin surface with elongated blood vessels, some of which are oriented perpendicular to the skin surface. 11:58 AM [facility] DERMATOPATHOLOGY LABORATORY Disclaimer An external and internal positive and negative controls are appropriate for the histochemical, immunohistochemical and immunofluorescence stain(s) in this case (if any), except where stated explicitly. The performance characteristics of the stain(s) cited in this report were developed and its performance characteristic determined by the Dermatopathology Laboratory at [facility], directed by Dr. Shell Hu. These tests need not be, and therefore are not, approved by the [place] Food and Drug Administration. The tests are used for clinical purposes. Billing Codes Specimen Charges Stain Charges 60078 1 11:58 AM [facility] DERMATOPATHOLOGY LABORATORY Embedded Images 11:58 AM [facility] DERMATOPATHOLOGY LABORATORY Pathology/Cytolog y TISSUE SPECIMEN FROM SKIN / Unknown 10/19/2021 10/21/2021 12:25 PM PROGRAM ENGAGEMENT DIRECTOR us Addi Espinosa MD LAB - PATHOLOGY/CYTOLOGY ORD ERABLES Final Result DERMATOPATHOLOGY LABORATORY [facility] - Department of Dermatology [facility] Medicine [address] [place] [address], [address] [place] [address], [facility] [phone] documented in this encounter Visit Diagnoses Not on filedocumented in this encounter Care Teams Table Inspector Relationship Specialty Start Date End Date Keanu aYo MD [address] [facility] [address] [place] [address] PCP - General 08/11/08 documented as of this encounter
--- OUTSIDE RECORDS SUMMARY | 2025-03-24 19:31 | XMS_ITS | Encounter Summary ---
Author Organization [facility] Address [address] [facility] [place] [address] Care Team Providers Care Muffler Installer Name Role Phone Keanu Yao MD Primary Care Provider [phone] Encounter Details Date Type Department Care Team (Late st Contact Info) Description 04/09/2019 Lab Requisition [facility] Care DermPath Lab [address] [facility] [place] [address] Addi Espinosa MD [address] [place] [address] Social History Tobacco Use Types Packs/Day Years Used Date Smoking Tobacco: Never Assessed Sex and Gender Information Value Date Recorded Sex Assigned at Not on file 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 Gender Identity Not on file Sexual Orientation Not on file documented as of this encounter Plan of Treatment Not on file documented as of this encounter Procedures Procedure Name Priority Date/Time Associated Diagnosis Comments DERMATOPATHOLOGY Routine 04/08/2019 12:0 0 AM CDT documented in this encounter Results * DERMATOPATHOLOGY (04/08/2019 12:00 AM CDT) Case Report Dermatopathology Report Case: [id number] Authorizing Provider: Addi Espinosa MD Collected: 04/08/2019 12:00 AM Pathologist: Sherley Hu MD Received: 04/09/2019 12:35 PM Specimen: Skin, right ant shoulder 9 5:45 PM CDT DERMATOPATHOLOGY LABORATORY Final Diagnosis Specimen A. SKIN, right ant shoulder: BASAL CELL CARCINOMA, INFILTRATIVE PATTERN (C44.612) 9 5:45 PM CDT DERMATOPATHOLOGY LABORATORY at 1745 CDT Clinical History R/O BCC 9 5:45 PM CDT DERMATOPATHOLOGY LABORATORY Gross Description Specimen A: Received is one formalin filled container labeled with the patient's name and designated right ant shoulder. The specimen consists of a shave biopsy measuring 9x8x2 mm. Jar 0. 5:45 PM CDT DERMATOPATHOLOGY LABORATORY Microscopic Description Specimen A. SKIN, right ant shoulder: Within the dermis there are nodular aggregates of basaloid cells associated with fibromyxoid stroma and epithelial-stromal clefts. At the advancing margin of the neoplasm, there are smaller angulated nests that infiltrate the dermis. 5:45 PM CDT DERMATOPATHOLOGY LABORATORY Disclaimer An external and internal positive and negative controls are appropriate for the histochemical, immunohistochemical and immunofluorescence stain(s) in this case (if any), except where stated explicitly. The performance characteristics of the stain(s) cited in this report were developed and its performance characteristic determined by the Dermatopathology Laboratory at [facility], directed by Dr. Shell Hu. These tests need not be, and therefore are not, approved by the [place] Food and Drug Administration. The tests are used for clinical purposes. Billing Codes Specimen Charges Stain Charges 75994 1 9 5:45 PM CDT DERMATOPATHOLOGY LABORATORY Embedded Images 5:45 PM CDT DERMATOPATHOLOGY LABORATORY Pathology/Cytolog y TISSUE SPECIMEN FROM SKIN / Unknown 04/08/2019 04/09/2019 12:35 PM CDT Addi Espinosa MD LAB - PATHOLOGY/CYTOLOGY ORD ERABLES Final Result DERMATOPATHOLOGY LABORATORY [facility] - Department of Dermatology [address] [facility], [address] [place] [address], [facility] [phone] documented in this encounter Visit Diagnoses Not on filedocumented in this encounter Care Teams Muffler Installer Relationship Specialty Start Date End Date Keanu Yao MD [address] [facility] [address] [place] [address] PCP - General 08/11/08 documented as of this encounter
--- OUTSIDE RECORDS SUMMARY | 2025-03-24 19:31 | XMS_ITS | Clinical Summary ---
Author Organization [facility] Address [address] [address] Phone Care Team Providers Care Mainspring Barrel Assembly Cleaner Name Role Phone Breezy Trinidad DO Primary Care Provider [phone] Allergies No known active allergies Medications Fluticasone Propionate (FLONASE NA) by Nasal route. Active Multiple Vitamins-Mineral s (MULTIVITAMIN PO) Take by mouth. Active CINNAMON PO Take by mouth. Active felodipine (PLENDIL) 10 MG TABLET SR 24 HR Take 10 mg by mouth daily. Active potassium chloride SA (KLORCON M) 20 MEQ Tablet Controlled Release Take 20 mEq by mouth daily. Active pravastatin (PRAVACHOL) 20 MG Tablet Take 20 mg by mouth daily. Active spironolactone (ALDACTONE) 25 MG Tablet Take 25 mg by mouth daily. Active Active Problems No known active problems Family History Medical History Relation Name Comments Melanoma Brother Melanoma Father Relation Name Status Comments Brother Father Social History Tobacco Use Types Packs/Day Years Used Date Smoking Tobacco: Never Smokeless Tobacco: Never Alcohol Use Standard Drinks/Week Comments Never 0 (1 standard drink = 0.6 oz pur e alcohol) AUDIT-C Answer Date Recorded Frequency of Alcohol Consumption Never 04/21/2019 Average Number of Drinks Not on file 019 Frequency of Binge Drinking Not asked 05/2019 Sex and Gender Information Value Date Recorded Sex Assigned at Not on file Legal Sex Male 8:52 PM CDT Gender Identity Not on file Sexual Orientation Not on file 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 Not on terrence e Not on file Last Filed Vital Signs Vital Sign Reading Time Taken Comments Blood Pressure 128/86 04/21/2019 2:50 PM CDT Pulse 77 04/21/2019 2:50 PM CDT Temperature - - Respiratory Rate - - Oxygen Saturation 97% 04/21/2019 2:50 PM CDT Inhaled Oxygen Concentration - - Weight 79.7 kg (175 lb 9.6 oz) 04/21/2019 2:50 P M CDT Height - - Body Mass Index - - Plan of Treatment Health Maintenance Due Date Last Done Comments Hepatitis C Virus (HCV) Screening 1940 TdaP Immunization 1940 Pneumococcal Immunization (5 0+ years) (1 of 1 - PCV) 1989 Zoster Immunization (1 of 2) 1989 Respiratory Syncytial Virus (RSV) Immunization (Adult) (1 - 1-dose 75+ series) 2014 SARS-COV-2 Immunization ( season) 2024 10/14/2021, 02/08/2021, 01/07/2021 Influenza Immunization (Seas on Ended) 2025 Hepatitis B Immunization Aged Out No longer eligible based on patient's age to complete this topic Human Papillomavirus (HPV) Immunization Aged Out No longer eligible b ased on patient's age to complete this topic Meningococcal Immunization (ACWY) Aged Out No longer eligible b ased on patient's age to complete this topic Rotavirus Immunization Aged Out No lo nger eligible based on patient's age to complete this topic Insurance MEDICARE [facility] Care Teams Mainspring Barrel Assembly Cleaner Relationship Specialty Start Date End Date Breezy Trinidad DO [address] [email or web address] [address] [place] [address] PCP - General Internal Medicine 04/21/19
--- OUTSIDE RECORDS SUMMARY | 2025-03-24 19:31 | XMS_ITS | Encounter Summary ---
Author Organization [facility] Address [address] [facility] [place] [address] Care Team Providers Care Strip Roller Name Role Phone Keanu Yao MD Primary Care Provider [phone] Encounter Details Date Type Department Care Team (Late st Contact Info) Description 09/02/2024 Lab Requisition [facility] - DermPath Lab [address] [facility] [place] [address] Addi Espinosa MD [address] [place] [address] Social History Tobacco Use Types Packs/Day Years Used Date Smoking Tobacco: Never Assessed Sex and Gender Information Value Date Recorded Sex Assigned at Not on file 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 Gender Identity Not on file Sexual Orientation Not on file documented as of this encounter Plan of Treatment Not on file documented as of this encounter Procedures Procedure Name Priority Date/Time Associated Diagnosis Comments DERMATOPATHOLOGY Routine 09/01/2024 12:0 0 AM PENOLOGY TEACHER documented in this encounter Results * DERMATOPATHOLOGY (09/01/2024 12:00 AM PENOLOGY TEACHER) Case Report Dermatopathology Report Case: [id number] Authorizing Provider: Addi Espinosa MD Collected: 09/01/2024 12:00 AM Ordering Location: [facility] Physician [facility] - Received: 09/02/2024 12:55 PM DermPath Lab Pathologist: Katiana Moyer MD Specimen: Skin, left posterior neck 4:23 PM PENOLOGY TEACHER DERMATOPATHOLOGY LABORATORY Final Diagnosis Specimen A. SKIN, left posterior neck: GRANULOMATOUS DERMATITIS CONSISTENT WITH A RUPTURED CYST OR HAIR FOLLICLE (L72.0) (see microscopic description) 4:23 PM [facility] DERMATOPATHOLOGY LABORATORY at 1623 PENOLOGY TEACHER Clinical History R/o SCC vs BCC 4:23 PM [facility] DERMATOPATHOLOGY LABORATORY Gross Description Specimen A: Received is one formalin filled container labeled with the patient's name and designated left posterior neck. The specimen consists of a shave biopsy measuring 8x6x1 mm. Jar 0. 4:23 PM [facility] DERMATOPATHOLOGY LABORATORY Microscopic Description Specimen A. SKIN, left posterior neck: Neutrophils, histiocytes, and multinucleated giant cells are present within the dermis. Additional deeper sections were obtained and reviewed. 4:23 PM [facility] DERMATOPATHOLOGY LABORATORY Disclaimer An external and internal positive and negative controls are appropriate for the histochemical, immunohistochemical and immunofluorescence stain(s) in this case (if any), except where stated explicitly. The performance characteristics of the stain(s) cited in this report were developed and its performance characteristic determined by the Dermatopathology Laboratory at [facility], directed by Dr. Shell Hu. These tests need not be, and therefore are not, approved by the [place] Food and Drug Administration. The tests are used for clinical purposes. Billing Codes Specimen Charges Stain Charges 30285 1 4:23 PM [facility] DERMATOPATHOLOGY LABORATORY Embedded Images 4:23 PM [facility] DERMATOPATHOLOGY LABORATORY Pathology/Cytolog y TISSUE SPECIMEN FROM SKIN / Unknown 09/01/2024 09/02/2024 12:55 PM PENOLOGY TEACHER Addi Espinosa MD LAB - PATHOLOGY/CYTOLOGY ORD ERABLES Final Result DERMATOPATHOLOGY LABORATORY [facility] - Department of Dermatology [facility] Medicine [address] [place] [address], [address] [place] [address], [facility] [phone] documented in this encounter Visit Diagnoses Not on filedocumented in this encounter Care Teams Strip Roller Relationship Specialty Start Date End Date Keanu Yao MD [address] [facility] [address] [place] [address] PCP - General 08/11/08 documented as of this encounter
[2025-03-24 19:33] VITALS: BP 177/86; PULSE 90; RESP 13; TEMP 36.7; O2SAT 98
--- NOTE | 2025-03-24 19:34 | PC.NURSE ---
Offered pt wheelchair to go back to room. Pt declined stating that he is feeling a little lightheaded, but drove here and would like to walk.
[2025-03-24 19:38] VITALS: PULSE 87
--- NOTE | 2025-03-24 19:39 | ECG_ITS ---
Test Date: 2025-03-24 19:45:05 Measurements Intervals [place] Rate: 75 P: 87 TN: 176 QRS: -19 QRSD: 141 T: 1 QT: 423 QTc: 474 Interpretive Statements SINUS RHYTHM WITH OCCASIONAL VENTRICULAR PREMATURE COMPLEXES RIGHT BUNDLE BRANCH BLOCK ABNORMAL ECG Compared to ECG 05/19/2024 22:42:39 Ventricular premature complex(es) now present Sinus bradycardia no longer present Electronically Signed On 03-24-2025 20:17:25 CDT by Rocael Javed D.O.
[2025-03-24 19:47] VITALS: BP 164/88; PULSE 86; RESP 16; O2SAT 96
[2025-03-24 19:50] LABS: Basophils Absolute Auto 0.1 K/mm3 (0.0-0.1); Basophils Percent Auto 0.8 % (0.2-1.2); Eosinophils Absolute Auto 0.2 K/mm3 (0-0.3); Eosinophils Percent Auto 2.3 % (0-4.4); Hemoglobin 15.8 g/dL (14.0-18.0); Immature Granulocyte Absolute 0.06 K/mm3 (0.00-0.031); Immature Granulocyte Percent A 0.7 % (0-0.5); Lymphocytes Absolute Auto 2.42 K/mm3 (0.9-3.2); Lymphocytes Percent Auto 29.4 % (18.3-44.2); Mean Corpuscular HGB Conc 32.9 g/dl (32-36); Mean Corpuscular Hemoglobin 30.6 pg (26-34); Mean Corpuscular Volume 92.8 fl (80-100); Mean Platelet Volume 9.3 fl (7.4-10.4); Monocytes Percent Auto 11.5 % (2.6-8.5); Neutrophils Absolute Auto 4.6 K/mm3 (1.3-6.7); Neutrophils Percent Auto 55.3 % (45.5-73.1); Platelet Count Result 226 k/mm3 (150-375); Red Blood Count 5.17 M/mm3 (4.6-6.20); Red Cell Distribution Width 13.4 % (11.5-14.5); White Blood Count 8.2 K/mm3 (4.5-10.0)
[2025-03-24] MEDS: ASPIRIN 81 MG CHEWABLE TABLET 324 MG PO (19:57)
[2025-03-24 20:03] LABS: Prothrombin Time 13.1 Seconds (11.1-14.7)
[2025-03-24 20:04] LABS: Partial Thromboplastin Time 24.3 Seconds (22.3-36.8)
--- NOTE | 2025-03-24 20:07 | PC.NURSE ---
lab called to add on BNP and mag ordered after blood sent to lab
--- NOTE | 2025-03-24 20:09 | ED_ITS ---
HPI - Chest Pain General Chief Complaint: Chest Pain Stated Complaint: Chest pain, L arm numbness Time Seen by Provider: 03/24/25 19:40 History of Present Illness HPI narrative: Patient is an 85-year-old male who presents to the emergency department this evening complaining of left-sided chest pain which started are unknown. Patient states the pain stays to the left side of his chest and does not radiate. States that he was having some numbness to his left hand, numbness side extend past his forearm and is along the ulnar nerve distribution. Describes the pain as dull. Rates it a 3/10. Denies any nausea, vomiting or abdominal pain, any shortness of breath, any recent illness, fevers or chills. Patient just wanted to be checked out because he is going on a trip tomorrow. Denies any additional symptoms or concerns at this time. Related Data Home Medications ?Medication ?Instructions ?Recorded ?Confirmed ?Last Taken ?Type multivitamin 1 tablet PO QAM 05/05/20 03/24/25 03/24/22 History omega-3 fatty acids 1,000 mg PO HS 05/05/20 03/24/25 03/24/22 History mecobalamin (vitamin B12) 1,000 1,000 mcg PO DAILY 06/07/23 03/24/25 Unknown History mcg lozenges latanoprost 0.005 % eye drops 1 drp EACH EYE DAILY 05/21/24 03/24/25 Unknown History Allergies Allergy/AdvReac Type Severity Reaction Status Date / Time iohexol (From contrast - CT, AdvReac Difficulty Verified 03/24/25 19:37 X-RAY) Breathing/RASH/HOT FLUSHED FEELING Review of Systems 2 Review of Systems: All systems are reviewed and are negative unless stated otherwise in the HPI. [facility] Past Medical History Medical History BMI 24.0-24.9, adult Hx of adenomatous colonic polyps Lump in the abdomen Suprapubic tenderness COVID-19 Irregular heart beat Arthritis of right knee Diverticulitis Essential (primary) hypertension Gastro-esophageal reflux disease without esophagitis Pure hypercholesterolemia Right bundle branch block Type 2 diabetes mellitus without complications Surgical History Surgical History H/O inguinal hernia repair Right Inguinal Hernia repair on 03/29/2022. History of prostatectomy Family History Family History Mother Patient's mother is Family history of malignant neoplasm of ovary Father Patient's father is Family history of malignant melanoma Sibling Family history of malignant melanoma Other Hypertension Social History Social History Smoking status: Never smoker Second hand tobacco smoke exposure: No Alcohol intake: never Substance use: never Substance use type: does not use Do You Feel Safe in your Home?: Yes Lack of Transportation: No Lack of Food: Never True Current Housing: I Have Housing Concerned About Future Housing: No Difficulty Paying Gas/Electric Bills: No Difficulty Paying for Meds: No Currently Unemployed: No Education: High School Diploma/GED Difficulty w/ Childcare or Family Care: No Living arrangements: with family 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 HEENT: PERRL, no rhinorrhea, no post nasal drip, oropharynx clear. Neck: Trachea midline, no JVD, no lymphadenopathy. Cardiovascular: Regular rate and rhythm, no murmurs, rubs or gallops, no peripheral edema. Respiratory: Clear to auscultation bilaterally, no tachypnea, no wheezing, no rhonchi, no rubs, no respiratory distress. Abdomen: Soft, nontender, nondistended, no rebound, no guarding, no peritoneal signs. Musculoskeletal: No joint swelling or deformity, normal muscle tone. Skin: No rashes or petechia, no signs of infection. Psychiatric: Alert and oriented, normal behavior and judgment for situation. Neurological: Alert and oriented to person, place, and time. Follows all commands. No focal deficits, speech is clear and fluent. Course Vital Signs Vital signs: Vital Signs Temperature 98.1 F 03/24/25 19:33 Pulse Rate 90 03/24/25 19:33 Respiratory Rate 13 03/24/25 19:33 Blood Pressure 177/86 H 03/24/25 19:33 Pulse Oximetry 98 03/24/25 19:33 Oxygen Delivery Room Air 03/24/25 19:33 Temperature 98.1 F 03/24/25 19:33 Pulse Rate 80 03/24/25 20:23 Respiratory Rate 15 03/24/25 20:23 Blood Pressure 151/80 H 03/24/25 20:23 Pulse Oximetry 96 03/24/25 20:23 Oxygen Delivery Room Air 03/24/25 19:47 MDM - Chest Pain MDM Narrative Medical decision making narrative: The patient was evaluated by myself in the emergency department. History is obtained from patient who is an independent historian and physical exam was performed. External medical records were reviewed at this time. IV was established and pertinent tests were ordered. Laboratory results obtained revealing no acute process. Troponin negative. EKG was obtained at this time and felt interpreted by me revealing sinus rhythm at a rate 75 beats per minute, no evidence of acute ischemia. EKG currently pending official cardiology read. Imaging studies obtained included CXR which was independently interpreted by me revealing: IMPRESSION: Bibasilar atelectasis versus pneumonia. Differential diagnosis considerations include acute coronary syndrome, infectious process such as pneumonia, musculoskeletal strain, costochondritis, acute viral syndrome. Comorbidities impacting this visit include none. I have evaluated and discussed social determinants of health with the patient that could potentially impact subsequent diagnosis and treatment plans. On repeat assessment of the patient, reevaluation revealed that the patient is doing well and is in no acute distress. Patient symptoms have improved since he arrived to our emergency department. Repeat vital signs were all reviewed and noted to be stable. Differential diagnosis and treatment plan were discussed with the patient at bedside. Patient agrees with discussion and after shared medical decision making agrees with discharge. All questions were answered to the patient's satisfaction. Patient will follow up with his PCP in 3-5 days. A script for azithromycin assess patient's pharmacy to take as prescribed for his possible pneumonia. Patient was provided with strict return precautions and instructed to return to the emergency department if any new or worsening symptoms develop. The patient was discharged in stable condition. Lab Data 03/24/25 19:41 03/24/25 19:41 Labs: Lab Results 03/24/25 Range/Units 19:41 WBC 8.2 (4.5-10.0) K/mm3 RBC 5.17 (4.6-6.20) M/mm3 Hgb 15.8 (14.0-18.0) g/dL Hct 48.0 (42.0-52.0) % MCV 92.8 (80-100) fl MCH 30.6 (26-34) pg MCHC 32.9 (32-36) g/dl RDW 13.4 (11.5-14.5) % Plt Count 226 (150-375) k/mm3 MPV 9.3 (7.4-10.4) fl Immature Gran % (Auto) 0.7 H (0-0.5) % Neut % (Auto) 55.3 (45.5-73.1) % Lymph % (Auto) 29.4 (18.3-44.2) % Wharton % (Auto) 11.5 H (2.6-8.5) % Eos % (Auto) 2.3 (0-4.4) % Baso % (Auto) 0.8 (0.2-1.2) % Lymph # (Auto) 2.42 (0.9-3.2) K/mm3 Wharton # (Auto) 1.0 H (0.1-0.6) K/mm3 Eos # (Auto) 0.2 (0-0.3) K/mm3 Baso # (Auto) 0.1 (0.0-0.1) K/mm3 Abs Immat Gran (auto) 0.06 H (0.00-0.031) K/mm3 Absolute Neuts (auto) 4.6 (1.3-6.7) K/mm3 Absolute Nucleated RBC 0.000 (0.0-0.012) K/mm3 Nucleated RBC % 0.0 (0.0-0.2) % PT 13.1 (11.1-14.7) Seconds INR 1.0 APTT 24.3 (22.3-36.8) Seconds Sodium 139 (137-145) mmol/L Potassium 4.1 (3.4-5.0) mmol/L Chloride 100 (98-107) mmol/L Carbon Dioxide 29 (22-30) mmol/L Anion Gap 10 (4-12) mmol/L BUN 27 H (9-20) mg/dL Creatinine 1.04 (0.7-1.3) mg/dL Estim Creat Clear Calc 48 ml/min Estimated GFR > 60 (59 - ) Glucose 239 H (65-110) mg/dL Calcium 9.9 (8.4-10.2) mg/dL Magnesium 2.0 (1.6-2.3) mg/dL Total Bilirubin 0.7 (0.2-1.3) mg/dL AST 32 (17-59) U/L ALT 24 (6-50) U/L Alkaline Phosphatase 61 (38-126) U/L Troponin I < 0.012 (0.000-0.034) ng/mL NT-Pro-B Natriuret Pep 260 H (19.9-100) pg/mL Total Protein 8.1 (6.3-8.2) g/dL Albumin 4.8 (3.5-5.1) g/dL Lipase 98 (23-300) U/L Discharge Plan Discharge Clinical Impression: Pneumonia, Chest pain Patient Disposition: Home Condition: Improved Instructions: Antibiotic Form, Chest Pain (ED), Pneumonia (ED) Additional Instructions: Please follow-up with the family doctor within the next 3-5 days. Return to ED if any new or worsening symptoms develop. Take the prescribed antibiotic as instructed for your possible pneumonia. Patient Language: Sinhala Prescriptions: New azithromycin 250 mg tablet See Rx Instructions .ROUTE .COMPLEX Qty: 6 0RF Rx Instructions: For 250 mg dose pack: take 500 mg today (day 1), then 250 mg for 4 days (days 2-5) No Action multivitamin Tablet,Chewable 1 tablet PO QAM omega-3 fatty acids Capsule 1,000 mg PO HS mecobalamin (vitamin B12) 1,000 mcg lozenge 1,000 mcg PO DAILY Rx Instructions: allow to dissolve in mouth OR may chew lightly before swallowing latanoprost 0.005 % drops 1 drp EACH EYE DAILY pravastatin 20 mg tablet See Rx Instructions .ROUTE .COMPLEX Qty: 90 1RF Dose Instruction: Take 1 tablet by mouth once daily Rx Instructions: Take 1 tablet by mouth once daily potassium chloride 20 mEq tablet,ER particles/crystals 20 meq PO BID Qty: 180 1RF Rx Instructions: Take 1 tablet by mouth twice daily spironolactone 25 mg tablet See Rx Instructions .ROUTE .COMPLEX Qty: 90 3RF Dose Instruction: Take 1 tablet by mouth once daily Rx Instructions: Take 1 tablet by mouth once daily pioglitazone 15 mg tablet 15 mg PO DAILY Qty: 90 3RF felodipine 10 mg tablet extended release 24 hr See Rx Instructions .ROUTE .COMPLEX Qty: 90 3RF Dose Instruction: Take 1 tablet by mouth once daily Rx Instructions: Take 1 tablet by mouth once daily Follow-up/Referrals: Paul Dale APRN [Primary Care Provider] - 3 Days Time of Disposition: 21:25
[2025-03-24 20:10] LABS: Alanine Aminotransferase 24 U/L (6-50); Albumin Level 4.8 g/dL (3.5-5.1); Alkaline Phosphatase 61 U/L (38-126); Anion Gap 10 mmol/L (4-12); Aspartate Amino Transferase 32 U/L (17-59); Bilirubin,Total 0.7 mg/dL (0.2-1.3); Blood Urea Nitrogen 27 mg/dL (9-20); Calcium 9.9 mg/dL (8.4-10.2); Carbon Dioxide 29 mmol/L (22-30); Chloride 100 mmol/L (98-107); Estimated CRCL calculation 48 ml/min; Estimated Glomerular Filt Rate > 60; Glucose 239 mg/dL (65-110); Lipase 98 U/L (23-300); Potassium 4.1 mmol/L (3.4-5.0); Sodium 139 mmol/L (137-145); Total Protein 8.1 g/dL (6.3-8.2)
[2025-03-24 20:22] LABS: Troponin I < 0.012 ng/mL (0.000-0.034)
[2025-03-24 20:23] VITALS: BP 151/80; PULSE 80; RESP 15; O2SAT 96
--- OUTSIDE RECORDS SUMMARY | 2025-03-24 20:29 | XMS_ITS | Clinical Summary ---
Author Organization [facility] Address [address] [place] [address] Care Team Providers Care Tube Machine Operator Helper Name Role Phone Keanu Yao MD Primary Care Provider [phone] Source Comments [facility],non-owned Affiliates and Associated Physician Practices is amultiple site organization consisting of ambulatory clinics and hospital sitesin [place], [place], [place] and [place]. This disclosure is being madepursuant to the Care Everywhere program and may not contain all information available regarding this patient. 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
--- OUTSIDE RECORDS SUMMARY | 2025-03-24 20:29 | XMS_ITS | Encounter Summary ---
Author Organization [facility] Address [address] [place] [address] Care Team Providers Care Mold Stamper Name Role Phone Keanu Yao MD Primary Care Provider [phone] Encounter Details Date Type Department Care Team (Late st Contact Info) Description 11/23/2022 Lab Requisition [facility] DermPath Lab [address] [facility] [address] [place] [address] Addi Espinosa MD [address] [place] [address] Social History Tobacco Use Types Packs/Day Years Used Date Smoking Tobacco: Never Assessed Sex and Gender Information Value Date Recorded Sex Assigned at Not on file Legal Sex Male 5:51 PM SHOE PACKER Gender Identity Not on file Sexual Orientation Not on file documented as of this encounter Plan of Treatment Not on file documented as of this encounter Procedures Procedure Name Priority Date/Time Associated Diagnosis Comments DERMATOPATHOLOGY Routine 11/21/2022 12:0 0 AM SHOE PACKER documented in this encounter Results * DERMATOPATHOLOGY (11/21/2022 12:00 AM SHOE PACKER) Case Report Dermatopathology Report Case: [id number] Authorizing Provider: Addi Espinosa MD Collected: 11/21/2022 12:00 AM Ordering Location: [facility] DermPath Lab Received: 11/23/2022 06:57 AM Pathologist: Jahaira Soliz MD Specimens: A) - Skin, right cheek below eye B) - Skin, right paraspinal 4:43 PM SHOE PACKER DERMATOPATHOLOGY LABORATORY Final Diagnosis Specimen A. SKIN, right cheek below eye: SEBACEOUS HYPERPLASIA (L73.8) Specimen B. SKIN, right paraspinal: DERMAL FIBROSIS (L90.5) (see microscopic description and comment) 3 4:43 PM [facility] DERMATOPATHOLOGY LABORATORY at [address]3 SHOE PACKER Clinical History A-B: R/O BCC, SCC 3 4:43 PM [facility] DERMATOPATHOLOGY LABORATORY Gross Description Specimen [...] 8x7x1 mm. Jar 0. 3 4:43 PM [facility] DERMATOPATHOLOGY LABORATORY Microscopic Description Specimen [...] aspect of a dermatofibroma. 3 4:43 PM [facility] DERMATOPATHOLOGY LABORATORY Disclaimer An external and internal positive and negative controls are appropriate for the histochemical, immunohistochemical and immunofluorescence stain(s) in this case (if any), except where stated explicitly. The performance characteristics of the stain(s) cited in this report were developed and its performance characteristic determined by the Dermatopathology Laboratory at [facility], directed by Dr. Shell Hu. These tests need not be, and therefore are not, approved by the [place] Food and Drug Administration. The tests are used for clinical purposes. Billing Codes Specimen Charges Stain Charges 44481 46853 1 1 63002 1 3 4:43 PM [facility] DERMATOPATHOLOGY LABORATORY Embedded Images 3 4:43 PM [facility] DERMATOPATHOLOGY LABORATORY Pathology/Cytology TISSUE SPECIMEN FROM SKIN / Unknown 11/21/2022 11/23/2022 6:57 AM [facility] Miscellaneous samples (specimen) TISSUE SPECIMEN FROM SKIN / Unknown 11/21/2022 11/23/2022 6:57 AM SHOE PACKER us Addi Espinosa MD LAB - PATHOLOGY/CYTOLOGY ORD ERABLES Final Result DERMATOPATHOLOGY LABORATORY [facility] - Department of Dermatology [facility] Specialized Medicine [address] [place] [address], [address] [phone] documented in this encounter Visit Diagnoses Not on filedocumented in this encounter Care Teams Mold Stamper Relationship Specialty Start Date End Date Keanu Yao MD [address] [facility] [address] [place] [id number] PCP - General 08/11/08 documented as of this encounter
--- OUTSIDE RECORDS SUMMARY | 2025-03-24 20:29 | XMS_ITS | Encounter Summary ---
Author Organization [facility] Address [address] [place] [address] Care Team Providers Care Director Of Housing Name Role Phone Keanu Yao MD Primary Care Provider [phone] Encounter Details Date Type Department Care Team (Late st Contact Info) Description 09/02/2024 Lab Requisition [facility] - DermPath Lab [address] [place] [address] Addi Espinosa MD [address] [place] [address] Social History Tobacco Use Types Packs/Day Years Used Date Smoking Tobacco: Never Assessed Sex and Gender Information Value Date Recorded Sex Assigned at Not on file Legal Sex Male 5:51 PM LOAN ORIGINATOR Gender Identity Not on file Sexual Orientation Not on file documented as of this encounter Plan of Treatment Not on file documented as of this encounter Procedures Procedure Name Priority Date/Time Associated Diagnosis Comments DERMATOPATHOLOGY Routine 09/01/2024 12:0 0 AM LOAN ORIGINATOR documented in this encounter Results * DERMATOPATHOLOGY (09/01/2024 12:00 AM LOAN ORIGINATOR) Case Report Dermatopathology Report Case: [id number] Authorizing Provider: Addi Espinosa MD Collected: 09/01/2024 12:00 AM Ordering Location: [facility] Physician [facility] - Received: 09/02/2024 12:55 PM DermPath Lab Pathologist: Katiana Moyer MD Specimen: Skin, left posterior neck 4:23 PM LOAN ORIGINATOR DERMATOPATHOLOGY LABORATORY Final Diagnosis Specimen A. 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 The specimen consists of a shave biopsy measuring 8x6x1 mm. Jar 0. 4:23 PM [facility] DERMATOPATHOLOGY LABORATORY Microscopic Description Specimen A. SKIN, left posterior neck: Neutrophils, histiocytes, and multinucleated giant cells are present within the dermis. Additional deeper sections were obtained and reviewed. 4:23 PM [facility] DERMATOPATHOLOGY LABORATORY Disclaimer An external and internal positive and negative controls are appropriate for the histochemical, immunohistochemical and immunofluorescence stain(s) in this case (if any), except where stated explicitly. The performance characteristics of the stain(s) cited in this report were developed and its performance characteristic determined by the Dermatopathology Laboratory at [facility], directed by Dr. Shell Hu. These tests need not be, and therefore are not, approved by the [place] Food and Drug Administration. The tests are used for clinical purposes. Billing Codes Specimen Charges Stain Charges 26040 1 4:23 PM [facility] DERMATOPATHOLOGY LABORATORY Embedded Images 4:23 PM [facility] DERMATOPATHOLOGY LABORATORY Pathology/Cytolog y TISSUE SPECIMEN FROM SKIN / Unknown 09/01/2024 09/02/2024 12:55 PM LOAN ORIGINATOR Addi Espinosa MD LAB - PATHOLOGY/CYTOLOGY ORD ERABLES Final Result DERMATOPATHOLOGY LABORATORY [facility] - Department of Dermatology [facility] Medicine [address] [place] [address], [address] [place] [address], [facility] [phone] documented in this encounter Visit Diagnoses Not on filedocumented in this encounter Care Teams Director Of Housing Relationship Specialty Start Date End Date Keanu Yao MD [address] [facility] [address] [place] [address] PCP - General 08/11/08 documented as of this encounter
--- OUTSIDE RECORDS SUMMARY | 2025-03-24 20:29 | XMS_ITS | Encounter Summary ---
Author Organization [facility] Address [address] [place] [address] Care Team Providers Care Cement And Concrete Plant Worker Name Role Phone Keanu Yao MD Primary Care Provider [phone] Encounter Details Date Type Department Care Team (Late st Contact Info) Description 10/21/2021 Lab Requisition [facility] DermPath Lab [address] [facility] [address] [facility] [place] [address] Addi Espinosa MD [address] [place] [address] Social History Tobacco Use Types Packs/Day Years Used Date Smoking Tobacco: Never Assessed Sex and Gender Information Value Date Recorded Sex Assigned at Not on file Legal Sex Male 5:51 PM SEARCH ENGINEER Gender Identity Not on file Sexual Orientation Not on file documented as of this encounter Plan of Treatment Not on file documented as of this encounter Procedures Procedure Name Priority Date/Time Associated Diagnosis Comments DERMATOPATHOLOGY Routine 10/19/2021 12:0 0 AM SEARCH ENGINEER documented in this encounter Results * DERMATOPATHOLOGY (10/19/2021 12:00 AM SEARCH ENGINEER) Case Report Dermatopathology Report Case: [id number] Authorizing Provider: Addi Espinosa MD Collected: 10/19/2021 12:00 AM Ordering Location: [facility] DermPath Lab Received: 10/21/2021 12:25 PM Pathologist: Beth Jo MD Specimen: Skin, right superior pretibia 11:58 AM SEARCH ENGINEER DERMATOPATHOLOGY LABORATORY Final Diagnosis Specimen A. SKIN, right superior pretibia: DERMAL HEMORRHAGE (I99.8) DERMAL SCAR (L90.5) (see microscopic description) 11:58 AM [facility] DERMATOPATHOLOGY LABORATORY at [address] SEARCH ENGINEER Clinical History R/O BCC, SCC, hemangioma. 11:58 AM [facility] DERMATOPATHOLOGY LABORATORY Gross Description Specimen A: Received is one formalin filled container labeled with the patient's name and designated right superior pretibia. The specimen consists of a shave biopsy measuring [id number]. Jar 0. 11:58 AM [facility] DERMATOPATHOLOGY LABORATORY Microscopic Description Specimen A. SKIN, right superior pretibia: Sections show dermal hemorrhage with scattered hemosiderophages. There are fibroblasts and collagen bundles oriented parallel to the skin surface with elongated blood vessels, some of which are oriented perpendicular to the skin surface. 11:58 AM [facility] DERMATOPATHOLOGY LABORATORY Disclaimer An external and internal positive and negative controls are appropriate for the histochemical, immunohistochemical and immunofluorescence stain(s) in this case (if any), except where stated explicitly. The performance characteristics of the stain(s) cited in this report were developed and its performance characteristic determined by the Dermatopathology Laboratory at [facility], directed by Dr. Shell Hu. These tests need not be, and therefore are not, approved by the [place] Food and Drug Administration. The tests are used for clinical purposes. Billing Codes Specimen Charges Stain Charges 44347 1 11:58 AM [facility] DERMATOPATHOLOGY LABORATORY Embedded Images 11:58 AM [facility] DERMATOPATHOLOGY LABORATORY Pathology/Cytolog y TISSUE SPECIMEN FROM SKIN / Unknown 10/19/2021 10/21/2021 12:25 PM SEARCH ENGINEER us Addi Espinosa MD LAB - PATHOLOGY/CYTOLOGY ORD ERABLES Final Result DERMATOPATHOLOGY LABORATORY [facility] - Department of Dermatology [facility] Medicine [address] [place] [address], [address] [place] [address], [facility] [phone] documented in this encounter Visit Diagnoses Not on filedocumented in this encounter Care Teams Cement And Concrete Plant Worker Relationship Specialty Start Date End Date Keanu Yao MD [address] [facility] [address] [place] [address] PCP - General 08/11/08 documented as of this encounter
--- OUTSIDE RECORDS SUMMARY | 2025-03-24 20:29 | XMS_ITS | Encounter Summary ---
Author Organization [facility] Address [address] [facility] [place] [address] Care Team Providers Care Sieve Grader Tender Name Role Phone Keanu Yao MD Primary Care Provider [phone] Encounter Details Date Type Department Care Team (Late st Contact Info) Description 04/09/2019 [facility] [address] [facility], [place] [address] Addi Espinosa MD [address] [place] [address] Social History Tobacco Use Types Packs/Day Years Used Date Smoking Tobacco: Never Assessed Sex and Gender Information Value Date Recorded Sex Assigned at Not on file Legal Sex Male 5:51 PM SERVICE CENTER REPRESENTATIVE Gender Identity Not on file Sexual Orientation Not on file documented as of this encounter Plan of Treatment Not on file documented as of this encounter Procedures Procedure Name Priority Date/Time Associated Diagnosis Comments DERMATOPATHOLOGY Routine 04/08/2019 12:0 0 AM CDT documented in this encounter Results * DERMATOPATHOLOGY (04/08/2019 12:00 AM CDT) Case Report Dermatopathology Report Case: [id number] Authorizing Provider: Addi Espinosa MD Collected: 04/08/2019 [...] determined by the Dermatopathology Laboratory at [facility], directed by Dr. Shell Hu. These tests need not be, and therefore are not, approved by the [place] Food and Drug Administration. The tests are used for clinical purposes. Billing Codes Specimen Charges Stain Charges 53056 1 9 5:45 PM CDT DERMATOPATHOLOGY LABORATORY Embedded Images 5:45 PM CDT DERMATOPATHOLOGY LABORATORY Pathology/Cytolog y TISSUE SPECIMEN FROM SKIN / Unknown 04/08/2019 04/09/2019 12:35 PM CDT Addi Espinosa MD LAB - PATHOLOGY/CYTOLOGY ORD ERABLES Final Result DERMATOPATHOLOGY LABORATORY [facility] - Department of Dermatology [address] [facility], 5th [place] [address], [facility] [phone] documented in this encounter Visit Diagnoses Not on filedocumented in this encounter Care Teams Sieve Grader Tender Relationship Specialty Start Date End Date Keanu Yao MD [address] [facility] [address] [place] [address] PCP - General 08/11/08 documented as of this encounter
--- OUTSIDE RECORDS SUMMARY | 2025-03-24 20:29 | XMS_ITS | Encounter Summary ---
Author Organization [facility] Address [address] [place] [address] Care Team Providers Care Construction Site Manager Name Role Phone Keanu Yao MD Primary Care Provider [phone] Encounter Details Date Type Department Care Team (Late st Contact Info) Description 12/16/2020 Lab Requisition [facility] DermPath Lab [address] [facility] [place] [address] Addi Espinosa MD [address] [place] [address] Social History Tobacco Use Types Packs/Day Years Used Date Smoking Tobacco: Never Assessed Sex and Gender Information Value Date Recorded Sex Assigned at Not on file Legal Sex Male 5:51 PM WARPING MACHINE OPERATOR Gender Identity Not on file Sexual Orientation Not on file documented as of this encounter Plan of Treatment Not on file documented as of this encounter Procedures Procedure Name Priority Date/Time Associated Diagnosis Comments DERMATOPATHOLOGY Routine 12/15/2020 3:33 AM WARPING MACHINE OPERATOR documented in this encounter Results * DERMATOPATHOLOGY (12/15/2020 3:33 AM WARPING MACHINE OPERATOR) Case Report Dermatopathology Report Case: [id number] Authorizing Provider: Addi Espinosa MD Collected: 12/15/2020 03:33 AM Ordering Location: [facility] DermPath Lab Received: 12/16/2020 01:27 PM Pathologist: Sherley Hu MD Specimens: A) - Skin, below right earlobe B) - Skin, right post base of neck 5:19 PM WARPING MACHINE OPERATOR DERMATOPATHOLOGY LABORATORY Final Diagnosis Specimen A. SKIN, below right earlobe: BASAL CELL CARCINOMA, NODULAR TYPE (C44.212) Specimen B. 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 B: R/O dysplastic nevus. 5:19 PM [facility] DERMATOPATHOLOGY LABORATORY Gross Description Specimen A: Received is one formalin filled container labeled with the patient's name and designated below right earlobe. The specimen consists of a shave biopsy measuring 1f1p1tz. Jar 0. Specimen B: Received is one formalin filled container labeled with the patient's name and designated right post base of neck. The specimen consists of a shave biopsy measuring [id number]. Jar 0. 5:19 PM [facility] DERMATOPATHOLOGY LABORATORY Microscopic [...] Dr. Katiana Moyer, who agrees. 5:19 PM [facility] DERMATOPATHOLOGY LABORATORY Disclaimer An external and internal positive and negative controls are appropriate for the histochemical, immunohistochemical and immunofluorescence stain(s) in this case (if any), except where stated explicitly. The performance characteristics of the stain(s) cited in this report were developed and its performance characteristic determined by the Dermatopathology Laboratory at [facility], directed by Dr. Shell Hu. These tests need not be, and therefore are not, approved by the [place] Food and Drug Administration. The tests are used for clinical purposes. Billing Codes Specimen Charges Stain Charges 91385 05144 1 1 57593 1 1 5:19 PM [facility] DERMATOPATHOLOGY LABORATORY Embedded Images 5:19 PM WARPING MACHINE OPERATOR DERMATOPATHOLOGY LABORATORY Pathology/Cytology TISSUE SPECIMEN FROM SKIN / Unknown 12/15/2020 3:33 AM WARPING MACHINE OPERATOR 12/16/2020 1:27 PM WARPING MACHINE OPERATOR Miscellaneous samples (specimen) TISSUE SPECIMEN FROM SKIN / Unknown 12/15/2020 3:33 AM WARPING MACHINE OPERATOR 12/16/2020 1:27 PM WARPING MACHINE OPERATOR Addi Espinosa MD LAB - PATHOLOGY/CYTOLOGY ORD ERABLES Final Result DERMATOPATHOLOGY LABORATORY [facility] - Department of Dermatology [facility] [address] [place] [address], [address] [phone] documented in this encounter Visit Diagnoses Not on filedocumented in this encounter Care Teams Construction Site Manager Relationship Specialty Start Date End Date Keanu Yao MD [address] [facility] [address] [place] [address] PCP - General 08/11/08 documented as of this encounter
--- OUTSIDE RECORDS SUMMARY | 2025-03-24 20:30 | XMS_ITS | Clinical Summary ---
Author Organization [facility] Address [address] [address] Phone Care Team Providers Care Precipitator Supervisor Name Role Phone Breezy Trinidad DO Primary Care Provider Allergies No known active allergies Medications Fluticasone [...] age to complete this topic Insurance MEDICARE [facility] Care Teams Precipitator Supervisor Relationship Specialty Start Date End Date Breezy Trinidad DO [address] [facility] [address] [place] [address] PCP - General Internal Medicine 04/21/19
--- OUTSIDE RECORDS SUMMARY | 2025-03-24 20:30 | XMS_ITS | Encounter Summary ---
Author Organization [facility] Address [address] [facility] [place] [address] Care Team Providers Care Project Management Instructor Name Role Phone Keanu Yao MD Primary Care Provider [phone] Encounter Details Date Type Department Care Team (Late st Contact Info) Description 02/14/2018 Lab Requisition [facility] Care DermPath Lab [address] [facility] [place] [address] Addi Espinosa MD [address] [place] [address] Social History Tobacco Use Types Packs/Day Years Used Date Smoking Tobacco: Never Assessed Sex and Gender Information Value Date Recorded Sex Assigned at Not on file Legal Sex Male 5:51 PM INDUCTION HEATING EQUIPMENT SETTER Gender Identity Not on file Sexual Orientation Not on file documented as of this encounter Plan of Treatment Not on file documented as of this encounter Procedures Procedure Name Priority Date/Time Associated Diagnosis Comments DERMATOPATHOLOGY Routine 02/13/2018 12:0 0 AM CDT documented in this encounter Results * DERMATOPATHOLOGY (02/13/2018 12:00 AM CDT) Case Report Dermatopathology Report Case: [id number] Authorizing Provider: Addi Espinosa MD Collected: 02/13/2018 [...] specimen consists of a shave biopsy measuring [id number], the margin is inked green. Jar 0. [...] characteristic determined by the Dermatopathology Laboratory at [facility]. These tests need not be, and therefore are not, approved by the [place] Food and Drug Administration. The tests are used for clinical purposes. Billing Codes Specimen Charges Stain Charges 64194 1 1:47 PM CDT DERMATOPATHOLOGY LABORATORY Embedded Images 1:47 PM CDT DERMATOPATHOLOGY LABORATORY Pathology/Cytolog y TISSUE SPECIMEN FROM SKIN / Unknown 02/13/2018 02/14/2018 1:42 PM CDT Addi Espinosa MD LAB - PATHOLOGY/CYTOLOGY ORD ERABLES Final Result DERMATOPATHOLOGY LABORATORY [facility] - Department of Dermatology [address] [place] [address] 5th Floor Lab [address] [phone] documented in this encounter Visit Diagnoses Not on filedocumented in this encounter Care Teams Project Management Instructor Relationship Specialty Start Date End Date Keanu Yao MD [address] [facility] [address] [facility] [address] [place] [address] PCP - General 08/11/08 documented as of this encounter
--- OUTSIDE RECORDS SUMMARY | 2025-03-24 20:30 | XMS_ITS | Continuity of Care Document ---
Author Organization [facility] Address [address] [place] [address] Phone Care Team Providers Care Freezer Person Name Role Phone Lotus Adam Unavailable Unavailable Advance Directives Directive Yes / No Effective Date File Name No Information Encounters Encounter Description Practice Location Reason(s) For Visit Diagnoses Date Provider Providers Copied on Encounter [facility], [address], [place], [place], [id number], [place] tel:[phone] [facility] No Information Sep-3 0-200 3 Kia Gautam. [address] , [address], [place], [address], [place]. tel:[phone] Family History Family Member Type Diagnosis Age [...]
--- OUTSIDE RECORDS SUMMARY | 2025-03-24 20:30 | XMS_ITS | Referral Summary ---
Author Organization [facility] [address] Address [address] [place] [address] Care Team Providers Care Toll Mechanic Name Role Phone Breezy Trinidad Primary Care Provider [phone] Allergies Active Allergy Reactions Criticality Noted Date [...] mouth daily Active salmon oiL-omega-3 fatty acids ([place] Oil-1000) 1,000-200 mg capsule [place] Oil-1000 Acti ve azelastine (ASTELIN) 137 mcg [...] year Assessment & Plan (12/03/2020 2:56 PM PRIVATE BRANCH EXCHANGE INSTALLER): White noise to cancel out ringing sound Hearing test - [facility] Astelin (azelastine) 2 sprays into each nostril while looking down over the sink, do not sniff in or blow nose after use for at least 30 minutes twice daily Bilateral hearing loss 12/03/2020 Assessment & Plan (12/03/2020 2:58 PM PRIVATE BRANCH EXCHANGE INSTALLER): White noise to cancel out ringing sound Hearing test - [facility] Astelin (azelastine) 2 sprays into each nostril while looking down over the sink, do not sniff in or blow nose after use for at least 30 minutes twice daily for at least 6 weeks Dysfunction of both eustachian tubes 12/03/2020 Assessment & Plan (12/03/2020 2:57 PM PRIVATE BRANCH EXCHANGE INSTALLER): White noise to cancel out ringing sound [...] on file Legal Sex Male 3:28 AM PRIVATE BRANCH EXCHANGE INSTALLER Gender Identity Not on file Sexual Orientation Not on file Last Filed Vital Signs Vital Sign Reading Time Taken Comments Blood Pressure 148/82 11/28/2024 2:10 PM PRIVATE BRANCH EXCHANGE INSTALLER Pulse 67 11/28/2024 2:10 PM PRIVATE BRANCH EXCHANGE INSTALLER Temperature 36.9 C (98.4 F) 05/19/2024 6:17 PM CDT Respiratory Rate 16 05/21/2024 8:48 AM CDT Oxygen Saturation 96% 11/28/2024 2:10 PM PRIVATE BRANCH EXCHANGE INSTALLER Inhaled Oxygen Concentration - - Weight 77.1 kg (170 lb) 11/28/2024 2:10 PM PRIVATE BRANCH EXCHANGE INSTALLER Height 180.3 cm (5' 11) 11/28/2024 2:10 PM PRIVATE BRANCH EXCHANGE INSTALLER Body Mass Index 23.71 11/28/2024 2:10 PM PRIVATE BRANCH EXCHANGE INSTALLER Plan of Treatment Not on file Insurance MEDICARE MEDICARE [facility] MEDICARE SUPPLEMENT Care Teams Toll Mechanic Relationship Specialty Start Date End Date Breezy Trinidad DO PCP - General Internal Medicine 05/08/24
--- OUTSIDE RECORDS SUMMARY | 2025-03-24 20:30 | XMS_ITS | Clinical Summary ---
Author Organization [facility] [address] Address [address] [place] [address] Care Team Providers Care Grain Oilseed Or Pasture Farm Manager Name Role Phone Breezy Trinidad DO Primary Care Provider [phone] Allergies Active Allergy Reactions Criticality Noted Date [...] mouth daily Active salmon oiL-omega-3 fatty acids ([place] Oil-1000) 1,000-200 mg capsule [place] Oil-1000 Acti ve azelastine (ASTELIN) 137 mcg [...] year Assessment & Plan (12/03/2020 2:56 PM BEAN WEIGHER): White noise to cancel out ringing sound Hearing test - [facility] Astelin (azelastine) 2 sprays into each nostril while looking down over the sink, do not sniff in or blow nose after use for at least 30 minutes twice daily Bilateral hearing loss 12/03/2020 Assessment & Plan (12/03/2020 2:58 PM BEAN WEIGHER): White noise to cancel out ringing sound Hearing test - [facility] Astelin (azelastine) 2 sprays into each nostril while looking down over the sink, do not sniff in or blow nose after use for at least 30 minutes twice daily for at least 6 weeks Dysfunction of both eustachian tubes 12/03/2020 Assessment & Plan (12/03/2020 2:57 PM BEAN WEIGHER): White noise to cancel out ringing sound [...] on file Legal Sex Male 3:28 AM BEAN WEIGHER Gender Identity Not on file Sexual Orientation Not on file Obstetrics History Last Filed Vital Signs Vital Sign Reading Time Taken Comments Blood Pressure 148/82 11/28/2024 2:10 PM BEAN WEIGHER Pulse 67 11/28/2024 2:10 PM BEAN WEIGHER Temperature 36.9 C (98.4 F) 05/19/2024 6:17 PM CDT Respiratory Rate 16 05/21/2024 8:48 AM CDT Oxygen Saturation 96% 11/28/2024 2:10 PM BEAN WEIGHER Inhaled Oxygen Concentration - - Weight 77.1 kg (170 lb) 11/28/2024 2:10 PM BEAN WEIGHER Height 180.3 cm (5' 11) 11/28/2024 2:10 PM BEAN WEIGHER Body Mass Index 23.71 11/28/2024 2:10 PM BEAN WEIGHER Plan of Treatment Health Maintenance Due Date [...] MEDICARE [employer] MEDICARE SUPPLEMENT Care Teams Grain Oilseed Or Pasture Farm Manager Relationship Specialty Start Date End Date Breezy Trinidad DO PCP - General Internal Medicine 05/08/24
--- OUTSIDE RECORDS SUMMARY | 2025-03-24 20:30 | XMS_ITS | Encounter Summary ---
Author Organization [facility] Address [address] [place] [address] Care Team Providers Care Audio Visual Director Name Role Phone Keanu Yao MD Primary Care Provider [phone] Encounter Details Date Type Department Care Team (Late st Contact Info) Description 04/15/2018 Lab Requisition [facility] Care DermPath Lab [address] [facility], [place] [address] Addi Espinosa MD [address] [place] [address] Social History Tobacco Use Types Packs/Day Years Used Date Smoking Tobacco: Never Assessed Sex and Gender Information Value Date Recorded Sex Assigned at Not on file Legal Sex Male 5:51 PM VISITOR SERVICES ASSOCIATE Gender Identity Not on file Sexual Orientation Not on file documented as of this encounter Plan of Treatment Not on file documented as of this encounter Procedures Procedure Name Priority Date/Time Associated Diagnosis Comments DERMATOPATHOLOGY Routine 04/12/2018 12:0 0 AM CDT documented in this encounter Results * DERMATOPATHOLOGY (04/12/2018 12:00 AM CDT) Case Report Dermatopathology Report Case: [id number] Authorizing Provider: Addi Espinosa MD Collected: 04/12/2018 12:00 AM Pathologist: Helen Guajardo MD Received: 04/15/2018 11:29 AM Specimens: A) - Skin, right episcopal B) - Skin, left nose 8 1:33 PM CDT DERMATOPATHOLOGY LABORATORY Final Diagnosis Specimen A. SKIN, right episcopal: SEBORRHEIC KERATOSIS (L82.1) Specimen B. SKIN, left nose: SQUAMOUS CELL CARCINOMA, WELL DIFFERENTIATED (C44.321) 1:33 PM CDT DERMATOPATHOLOGY LABORATORY at 1333 CDT Clinical History A: R/O ISK, BCC, SCC. B: R/O BCC. 1:33 PM CDT DERMATOPATHOLOGY LABORATORY Gross Description Specimen A: Received is one formalin filled container labeled with the patient's name and designated right episcopal. The specimen consists of a shave biopsy measuring [id number]. Jar 0. Specimen B: Received is one formalin filled container labeled with the patient's name and designated left nose. The specimen consists of a shave biopsy measuring [id number]. Jar 0. 1:33 PM CDT DERMATOPATHOLOGY LABORATORY Microscopic Description Specimen A. SKIN, right episcopal: Sections show an acanthotic lesion composed of [...] characteristic determined by the Dermatopathology Laboratory at [facility]. These tests need not be, and therefore are not, approved by the [place] Food and Drug Administration. The tests are used for clinical purposes. Billing Codes Specimen Charges Stain Charges 04461 33214 1 1 1:33 PM CDT DERMATOPATHOLOGY LABORATORY Embedded Images 1:33 PM CDT DERMATOPATHOLOGY LABORATORY Pathology/Cytology TISSUE SPECIMEN FROM SKIN / Unknown 04/12/2018 04/15/2018 11:29 AM CDT Miscellaneous samples (specimen) TISSUE SPECIMEN FROM SKIN / Unknown 04/12/2018 04/15/2018 11:29 AM CDT us Addi Espinosa MD LAB - PATHOLOGY/CYTOLOGY ORD ERABLES Final Result DERMATOPATHOLOGY LABORATORY [facility] - Department of Dermatology [address] [facility], 5th [place] [address], [facility] [phone] documented in this encounter Visit Diagnoses Not on filedocumented in this encounter Care Teams Audio Visual Director Relationship Specialty Start Date End Date Keanu Yao MD [address] [facility] [address] [place] [address] PCP - General 08/11/08 documented as of this encounter
[2025-03-24 21:20] LABS: NT Pro B Type Natriuretic Pept 260 pg/mL (19.9-100)
[2025-03-24 21:40] VITALS: BP 150/72; PULSE 85; RESP 14; O2SAT 97
== END 2025-03-24 21:42 | disposition home or self-care (01) ==
PROVIDERS: Emergency Provider Emergency Medicine; PCP Nurse Practitioner
DX: J18.9 Pneumonia, unspecified organism (principal); I10 Essential (primary) hypertension; E78.00 Pure hypercholesterolemia, unspecified; E11.9 Type 2 diabetes mellitus without complications; K21.9 Gastro-esophageal reflux disease without esophagitis; M17.11 Unilateral primary osteoarthritis, right knee; Z86.16 Personal history of COVID-19; Z86.0101 Personal history of adenomatous and serrated colon polyps; Z90.79 Acquired absence of other genital organ(s); Z79.84 Long term (current) use of oral hypoglycemic drugs; Z79.899 Other long term (current) drug therapy; I49.3 Ventricular premature depolarization; I45.10 Unspecified right bundle-branch block
CPT/HCPCS: 36415; 71045; 80053; 83690; 83735; 83880; 84484; 85025; 85610; 85730; 93005; 99284; A9270

== ENCOUNTER 2025-05-07 07:43 | Outpatient (CLI) | payer MEDICARE, SELFPAY ==
--- OUTSIDE RECORDS SUMMARY | 2025-05-07 07:46 | XMS_ITS | Encounter Summary ---
Author Organization [facility] Address [address] [facility] [place] [address] Care Team Providers Care Office Communication Professor Name Role Phone Keanu Yao MD Primary Care Provider [phone] Encounter Details Date Type Department Care Team (Late st Contact Info) Description 11/23/2022 Lab Requisition [facility] DermPath Lab [address] [facility] [facility] [place] [address] Addi Espinosa MD [address] [place] [address] Social History Tobacco Use Types Packs/Day Years Used Date Smoking Tobacco: Never Assessed Sex and Gender Information Value Date Recorded Sex Assigned at Not on file Legal Sex Male 5:51 PM WAX POT TENDER Gender Identity Not on file Sexual Orientation Not on file documented as of this encounter Plan of Treatment Not on file documented as of this encounter Procedures Procedure Name Priority Date/Time Associated Diagnosis Comments DERMATOPATHOLOGY Routine 11/21/2022 12:0 0 AM WAX POT TENDER documented in this encounter Results * DERMATOPATHOLOGY (11/21/2022 12:00 AM WAX POT TENDER) Case Report Dermatopathology Report Case: [id number] Authorizing Provider: Addi Espinosa MD Collected: 11/21/2022 12:00 AM Ordering Location: [facility] DermPath Lab Received: 11/23/2022 06:57 AM Pathologist: Jahaira Soliz MD Specimens: A) - Skin, right cheek below eye B) - Skin, right paraspinal 4:43 PM WAX POT TENDER DERMATOPATHOLOGY LABORATORY Final Diagnosis Specimen A. SKIN, right cheek below eye: SEBACEOUS HYPERPLASIA (L73.8) Specimen B. SKIN, right paraspinal: DERMAL FIBROSIS (L90.5) (see microscopic description and comment) 3 4:43 PM [facility] DERMATOPATHOLOGY LABORATORY at [address] WAX POT TENDER Clinical History A-B: R/O BCC, SCC 3 4:43 PM [facility] DERMATOPATHOLOGY LABORATORY Gross Description Specimen [...] 8x7x1 mm. Jar 0. 3 4:43 PM [facility] DERMATOPATHOLOGY LABORATORY Microscopic Description Specimen [...] aspect of a dermatofibroma. 3 4:43 PM [facility] DERMATOPATHOLOGY LABORATORY Disclaimer An external and internal positive and negative controls are appropriate for the histochemical, immunohistochemical and immunofluorescence stain(s) in this case (if any), except where stated explicitly. The performance characteristics of the stain(s) cited in this report were developed and its performance characteristic determined by the Dermatopathology Laboratory at [facility], directed by Dr. Shell Hu. These tests need not be, and therefore are not, approved by the [place] Food and Drug Administration. The tests are used for clinical purposes. Billing Codes Specimen Charges Stain Charges 77405 67372 1 1 55638 1 3 4:43 PM [facility] DERMATOPATHOLOGY LABORATORY Embedded Images 3 4:43 PM [facility] DERMATOPATHOLOGY LABORATORY Pathology/Cytology TISSUE SPECIMEN FROM SKIN / Unknown 11/21/2022 11/23/2022 6:57 AM [facility] Miscellaneous samples (specimen) TISSUE SPECIMEN FROM SKIN / Unknown 11/21/2022 11/23/2022 6:57 AM WAX POT TENDER us Addi Espinosa MD LAB - PATHOLOGY/CYTOLOGY ORD ERABLES Final Result DERMATOPATHOLOGY LABORATORY [facility] - Department of Dermatology [facility] [address] [place] [address], [address] [phone] documented in this encounter Visit Diagnoses Not on filedocumented in this encounter Care Teams Office Communication Professor Relationship Specialty Start Date End Date Keanu Yao MD [address] [facility] [address] [place] [address] PCP - General 08/11/08 documented as of this encounter
--- OUTSIDE RECORDS SUMMARY | 2025-05-07 07:46 | XMS_ITS | Encounter Summary ---
Author Organization [facility] Address [address] [place] [address] Care Team Providers Care Car Blocker Name Role Phone Keanu Yao MD Primary Care Provider [phone] Encounter Details Date Type Department Care Team (Late st Contact Info) Description 12/16/2020 Lab Requisition [facility] DermPath Lab [address] [facility] [place] [address] Addi Espinosa MD [address] [place] [address] Social History Tobacco Use Types Packs/Day Years Used Date Smoking Tobacco: Never Assessed Sex and Gender Information Value Date Recorded Sex Assigned at Not on file Legal Sex Male 5:51 PM PEDIATRIC NEUROPSYCHOLOGIST Gender Identity Not on file Sexual Orientation Not on file documented as of this encounter Plan of Treatment Not on file documented as of this encounter Procedures Procedure Name Priority Date/Time Associated Diagnosis Comments DERMATOPATHOLOGY Routine 12/15/2020 3:33 AM PEDIATRIC NEUROPSYCHOLOGIST documented in this encounter Results * DERMATOPATHOLOGY (12/15/2020 3:33 AM PEDIATRIC NEUROPSYCHOLOGIST) Case Report Dermatopathology Report Case: [id number] Authorizing Provider: Addi Espinosa MD Collected: 12/15/2020 03:33 AM Ordering Location: [facility] DermPath Lab Received: 12/16/2020 01:27 PM Pathologist: Sherley Hu MD Specimens: A) - Skin, below right earlobe B) - Skin, right post base of neck 5:19 PM PEDIATRIC NEUROPSYCHOLOGIST DERMATOPATHOLOGY LABORATORY Final Diagnosis Specimen A. SKIN, below right earlobe: BASAL CELL CARCINOMA, NODULAR TYPE (C44.212) Specimen B. 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 B: R/O dysplastic nevus. 5:19 PM [facility] DERMATOPATHOLOGY LABORATORY Gross Description Specimen A: Received is one formalin filled container labeled with the patient's name and designated below right earlobe. The specimen consists of a shave biopsy measuring [id number]. Jar 0. Specimen B: Received is one formalin filled container labeled with the patient's name and designated right post base of neck. The specimen consists of a shave biopsy measuring 93f6u4up. Jar 0. 5:19 PM [facility] DERMATOPATHOLOGY LABORATORY Microscopic Description Specimen A. [...] Dr. Katiana Moyer, who agrees. 5:19 PM [facility] DERMATOPATHOLOGY LABORATORY Disclaimer An external and internal positive and negative controls are appropriate for the histochemical, immunohistochemical and immunofluorescence stain(s) in this case (if any), except where stated explicitly. The performance characteristics of the stain(s) cited in this report were developed and its performance characteristic determined by the Dermatopathology Laboratory at [facility], directed by Dr. Shell Hu. These tests need not be, and therefore are not, approved by the [place] Food and Drug Administration. The tests are used for clinical purposes. Billing Codes Specimen Charges Stain Charges 58336 22187 1 1 48565 1 1 5:19 PM [facility] DERMATOPATHOLOGY LABORATORY Embedded Images 5:19 PM PEDIATRIC NEUROPSYCHOLOGIST DERMATOPATHOLOGY LABORATORY Pathology/Cytology TISSUE SPECIMEN FROM SKIN / Unknown 12/15/2020 3:33 AM PEDIATRIC NEUROPSYCHOLOGIST 12/16/2020 1:27 PM PEDIATRIC NEUROPSYCHOLOGIST Miscellaneous samples (specimen) TISSUE SPECIMEN FROM SKIN / Unknown 12/15/2020 3:33 AM PEDIATRIC NEUROPSYCHOLOGIST 12/16/2020 1:27 PM PEDIATRIC NEUROPSYCHOLOGIST Addi Espinosa MD LAB - PATHOLOGY/CYTOLOGY ORD ERABLES Final Result DERMATOPATHOLOGY LABORATORY [facility] - Department of Dermatology [facility] Specialized Medicine [address] [place] [address], [address] [phone] documented in this encounter Visit Diagnoses Not on filedocumented in this encounter Care Teams Car Blocker Relationship Specialty Start Date End Date Keanu Yao MD [address] [facility] [address] [place] [address] PCP - General 08/11/08 documented as of this encounter
--- OUTSIDE RECORDS SUMMARY | 2025-05-07 07:46 | XMS_ITS | Referral Summary ---
Author Organization [facility] [address] Address [address] [place] [address] Care Team Providers Care Delivery Stock Clerk Name Role Phone Breezy Trinidad Primary Care Provider [phone] Allergies Active Allergy Reactions Criticality Noted Date [...] mouth daily Active salmon oiL-omega-3 fatty acids ([place] Oil-1000) 1,000-200 mg capsule [place] Oil-1000 Acti ve azelastine (ASTELIN) 137 mcg [...] year Assessment & Plan (12/03/2020 2:56 PM AMMUNITION SPECIALIST): White noise to cancel out ringing sound Hearing test - [employer] Astelin (azelastine) 2 sprays into each nostril while looking down over the sink, do not sniff in or blow nose after use for at least 30 minutes twice daily Bilateral hearing loss 12/03/2020 Assessment & Plan (12/03/2020 2:58 PM AMMUNITION SPECIALIST): White noise to cancel out ringing sound Hearing test - [employer] Astelin (azelastine) 2 sprays into each nostril while looking down over the sink, do not sniff in or blow nose after use for at least 30 minutes twice daily for at least 6 weeks Dysfunction of both eustachian tubes 12/03/2020 Assessment & Plan (12/03/2020 2:57 PM AMMUNITION SPECIALIST): White noise to cancel out ringing sound [...] on file Legal Sex Male 3:28 AM AMMUNITION SPECIALIST Gender Identity Not on file Sexual Orientation Not on file Last Filed Vital Signs Vital Sign Reading Time Taken Comments Blood Pressure 148/82 11/28/2024 2:10 PM AMMUNITION SPECIALIST Pulse 67 11/28/2024 2:10 PM AMMUNITION SPECIALIST Temperature 36.9 C (98.4 F) 05/19/2024 6:17 PM CDT Respiratory Rate 16 05/21/2024 8:48 AM CDT Oxygen Saturation 96% 11/28/2024 2:10 PM AMMUNITION SPECIALIST Inhaled Oxygen Concentration - - Weight 77.1 kg (170 lb) 11/28/2024 2:10 PM AMMUNITION SPECIALIST Height 180.3 cm (5' 11) 11/28/2024 2:10 PM AMMUNITION SPECIALIST Body Mass Index 23.71 11/28/2024 2:10 PM AMMUNITION SPECIALIST Plan of Treatment Not on file Insurance MEDICARE MEDICARE [facility] MEDICARE SUPPLEMENT Care Teams Delivery Stock Clerk Relationship Specialty Start Date End Date Breezy Trinidad DO PCP - General Internal Medicine 05/08/24
--- OUTSIDE RECORDS SUMMARY | 2025-05-07 07:46 | XMS_ITS | Encounter Summary ---
Author Organization [facility] Address [address] [place] [address] Care Team Providers Care Production Weigher Name Role Phone Keanu Yao MD Primary Care Provider [phone] Encounter Details Date Type Department Care Team (Late st Contact Info) Description 10/21/2021 Lab Requisition [facility] DermPath Lab [address] [facility] [place] [address] Addi Espinosa MD [address] [place] [address] Social History Tobacco Use Types Packs/Day Years Used Date Smoking Tobacco: Never Assessed Sex and Gender Information Value Date Recorded Sex Assigned at Not on file Legal Sex Male 5:51 PM SUBWAY CONDUCTOR Gender Identity Not on file Sexual Orientation Not on file documented as of this encounter Plan of Treatment Not on file documented as of this encounter Procedures Procedure Name Priority Date/Time Associated Diagnosis Comments DERMATOPATHOLOGY Routine 10/19/2021 12:0 0 AM SUBWAY CONDUCTOR documented in this encounter Results * DERMATOPATHOLOGY (10/19/2021 12:00 AM SUBWAY CONDUCTOR) Case Report Dermatopathology Report Case: [id number] Authorizing Provider: Addi Espinosa MD Collected: 10/19/2021 12:00 AM Ordering Location: [facility] DermPath Lab Received: 10/21/2021 12:25 PM Pathologist: Beth Jo MD Specimen: Skin, right superior pretibia 11:58 AM SUBWAY CONDUCTOR DERMATOPATHOLOGY LABORATORY Final Diagnosis Specimen A. SKIN, right superior pretibia: DERMAL HEMORRHAGE (I99.8) DERMAL SCAR (L90.5) (see microscopic description) 11:58 AM [facility] DERMATOPATHOLOGY LABORATORY at [address] SUBWAY CONDUCTOR Clinical History R/O BCC, SCC, hemangioma. 11:58 AM [facility] DERMATOPATHOLOGY LABORATORY Gross Description Specimen A: Received is one formalin filled container labeled with the patient's name and designated right superior pretibia. The specimen consists of a shave biopsy measuring 86d10x6di. Jar 0. 11:58 AM [facility] DERMATOPATHOLOGY LABORATORY Microscopic Description Specimen A. SKIN, right superior pretibia: Sections show dermal hemorrhage with scattered hemosiderophages. There are fibroblasts and collagen bundles oriented parallel to the skin surface with elongated blood vessels, some of which are oriented perpendicular to the skin surface. 11:58 AM [facility] DERMATOPATHOLOGY LABORATORY Disclaimer An external and internal positive and negative controls are appropriate for the histochemical, immunohistochemical and immunofluorescence stain(s) in this case (if any), except where stated explicitly. The performance characteristics of the stain(s) cited in this report were developed and its performance characteristic determined by the Dermatopathology Laboratory at [facility], directed by Dr. Shell Hu. These tests need not be, and therefore are not, approved by the [place] Food and Drug Administration. The tests are used for clinical purposes. Billing Codes Specimen Charges Stain Charges 70180 1 11:58 AM [facility] DERMATOPATHOLOGY LABORATORY Embedded Images 11:58 AM [facility] DERMATOPATHOLOGY LABORATORY Pathology/Cytolog y TISSUE SPECIMEN FROM SKIN / Unknown 10/19/2021 10/21/2021 12:25 PM SUBWAY CONDUCTOR us Addi Espinosa MD LAB - PATHOLOGY/CYTOLOGY ORD ERABLES Final Result DERMATOPATHOLOGY LABORATORY [facility] - Department of Dermatology [facility] Medicine [address] [place] [address], [address]rd [place] [address], [facility] [phone] documented in this encounter Visit Diagnoses Not on filedocumented in this encounter Care Teams Production Weigher Relationship Specialty Start Date End Date Keanu Yao MD [address] [facility] [address] [place] [address] PCP - General 08/11/08 documented as of this encounter
--- OUTSIDE RECORDS SUMMARY | 2025-05-07 07:46 | XMS_ITS | Encounter Summary ---
Author Organization [facility] Address [address] [facility] [place] [address] Care Team Providers Care Rehab Tech Name Role Phone Keanu Yao MD Primary Care Provider [phone] Encounter Details Date Type Department Care Team (Late st Contact Info) Description 04/15/2018 Lab Requisition [facility] Care DermPath Lab [address] [facility], [place] [address] Addi Espinosa MD [address] [place] [address] Social History Tobacco Use Types Packs/Day Years Used Date Smoking Tobacco: Never Assessed Sex and Gender Information Value Date Recorded Sex Assigned at Not on file Legal Sex Male 5:51 PM WATCH REPAIRER Gender Identity Not on file Sexual Orientation Not on file documented as of this encounter Plan of Treatment Not on file documented as of this encounter Procedures Procedure Name Priority Date/Time Associated Diagnosis Comments DERMATOPATHOLOGY Routine 04/12/2018 12:0 0 AM CDT documented in this encounter Results * DERMATOPATHOLOGY (04/12/2018 12:00 AM CDT) Case Report Dermatopathology Report [id number]: [id number] Authorizing Provider: Addi Espinosa MD Collected: 04/12/2018 12:00 AM Pathologist: Helen Guajardo MD Received: 04/15/2018 11:29 AM Specimens: A) - Skin, right moravian B) - Skin, left nose 8 1:33 PM CDT DERMATOPATHOLOGY LABORATORY Final Diagnosis Specimen A. SKIN, right moravian: SEBORRHEIC KERATOSIS (L82.1) Specimen B. SKIN, left nose: SQUAMOUS CELL CARCINOMA, WELL DIFFERENTIATED (C44.321) 1:33 PM CDT DERMATOPATHOLOGY LABORATORY at 1333 CDT Clinical History A: R/O ISK, BCC, SCC. B: R/O BCC. 1:33 PM CDT DERMATOPATHOLOGY LABORATORY Gross Description Specimen A: Received is one formalin filled container labeled with the patient's name and designated right moravian. The specimen consists of a shave biopsy measuring [id number]. Jar 0. Specimen B: Received is one formalin filled container labeled with the patient's name and designated left nose. The specimen consists of a shave biopsy measuring 80x55r9rm. Jar 0. 1:33 PM CDT DERMATOPATHOLOGY LABORATORY Microscopic Description Specimen A. SKIN, right moravian: Sections show an acanthotic lesion composed of [...] characteristic determined by the Dermatopathology Laboratory at [facility]. These tests need not be, and therefore are not, approved by the [place] Food and Drug Administration. The tests are used for clinical purposes. Billing Codes Specimen Charges Stain Charges 37100 88752 1 1 1:33 PM CDT DERMATOPATHOLOGY LABORATORY Embedded Images 1:33 PM CDT DERMATOPATHOLOGY LABORATORY Pathology/Cytology TISSUE SPECIMEN FROM SKIN / Unknown 04/12/2018 04/15/2018 11:29 AM CDT Miscellaneous samples (specimen) TISSUE SPECIMEN FROM SKIN / Unknown 04/12/2018 04/15/2018 11:29 AM CDT us Addi Espinosa MD LAB - PATHOLOGY/CYTOLOGY ORD ERABLES Final Result DERMATOPATHOLOGY LABORATORY [facility] - Department of Dermatology [address] [facility], [address]th [place] [address], [facility] [phone] documented in this encounter Visit Diagnoses Not on filedocumented in this encounter Care Teams Rehab Tech Relationship Specialty Start Date End Date Keanu Yao MD [address] [facility] [address] [place] [address] PCP - General 08/11/08 documented as of this encounter
--- OUTSIDE RECORDS SUMMARY | 2025-05-07 07:46 | XMS_ITS | Clinical Summary ---
Author Organization [facility] Address [address] [place] [address] Care Team Providers Care Supervisor Instrument Mechanics Name Role Phone Keanu Yao MD Primary Care Provider [phone] Source Comments [facility],non-owned Affiliates and Associated Physician Practices is amultiple site organization consisting of ambulatory clinics and hospital sitesin [place], [place], [place] and [place]. This disclosure is being madepursuant to the Care Everywhere program and may not contain all information available regarding this patient. Last updated 18.[facility] Social History Tobacco Use Types Packs/Day Years Used Date Smoking Tobacco: Never Assessed Sex and Gender Information Value Date Recorded Sex Assigned at Not on file Legal Sex Male 5:51 PM SENIOR TREASURY CONSULTANT Gender Identity Not on file Sexual Orientation [...] season) 2024 DEPRESSION SCREENING 10/15/2024 INFLUENZA VACCINE (#1) 2025 HEPATITIS B VACCINE Aged Out No [...] ANTHEM MEDICARE ANTHEM MEDICARE ANTHEM Care Teams Supervisor Instrument Mechanics Relationship Specialty Start Date End Date Keanu Yao MD [address] [place] [address] PCP - General 08/11/08
--- OUTSIDE RECORDS SUMMARY | 2025-05-07 07:46 | XMS_ITS | Clinical Summary ---
Author Organization [facility] [address] Address [address] [place] [address] Care Team Providers Care Director Center Name Role Phone Breezy Trinidad DO Primary Care Provider [phone] Allergies Active Allergy Reactions Criticality Noted Date [...] mouth daily Active salmon oiL-omega-3 fatty acids ([place] Oil-1000) 1,000-200 mg capsule [place] Oil-1000 Acti ve azelastine (ASTELIN) 137 mcg [...] year Assessment & Plan (12/03/2020 2:56 PM PATIENT SERVICES ASSISTANT): White noise to cancel out ringing sound Hearing test - [employer] Astelin (azelastine) 2 sprays into each nostril while looking down over the sink, do not sniff in or blow nose after use for at least 30 minutes twice daily Bilateral hearing loss 12/03/2020 Assessment & Plan (12/03/2020 2:58 PM PATIENT SERVICES ASSISTANT): White noise to cancel out ringing sound Hearing test - [employer] Ast[facility] (azelastine) 2 sprays into each nostril while looking down over the sink, do not sniff in or blow nose after use for at least 30 minutes twice daily for at least 6 weeks Dysfunction of both eustachian tubes 12/03/2020 Assessment & Plan (12/03/2020 2:57 PM PATIENT SERVICES ASSISTANT): White noise to cancel out ringing sound [...] on file Legal Sex Male 3:28 AM PATIENT SERVICES ASSISTANT Gender Identity Not on file Sexual Orientation Not on file Obstetrics History Last Filed Vital Signs Vital Sign Reading Time Taken Comments Blood Pressure 148/82 11/28/2024 2:10 PM PATIENT SERVICES ASSISTANT Pulse 67 11/28/2024 2:10 PM PATIENT SERVICES ASSISTANT Temperature 36.9 C (98.4 F) 05/19/2024 6:17 PM CDT Respiratory Rate 16 05/21/2024 8:48 AM CDT Oxygen Saturation 96% 11/28/2024 2:10 PM PATIENT SERVICES ASSISTANT Inhaled Oxygen Concentration - - Weight 77.1 kg (170 lb) 11/28/2024 2:10 PM PATIENT SERVICES ASSISTANT Height 180.3 cm (5' 11) 11/28/2024 2:10 PM PATIENT SERVICES ASSISTANT Body Mass Index 23.71 11/28/2024 2:10 PM PATIENT SERVICES ASSISTANT Plan of Treatment Health Maintenance Due Date [...] MEDICARE BLUE CROSS MEDICARE SUPPLEMENT Care Teams Director Center Relationship Specialty Start Date End Date Breezy Trinidad DO PCP - General Internal Medicine 05/08/24
--- OUTSIDE RECORDS SUMMARY | 2025-05-07 07:46 | XMS_ITS | Encounter Summary ---
Author Organization [facility] Address [address] [facility] [place] [address] Care Team Providers Care Sessions Clerk Name Role Phone Keanu Yao MD Primary Care Provider [phone] Encounter Details Date Type Department Care Team (Late st Contact Info) Description 04/09/2019 Lab Requisition [facility] Care DermPath Lab [address] 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 Shell Hu. These tests need not be, and therefore are not, approved by the [place] Food and Drug Administration. The tests are used for clinical purposes. Billing Codes Specimen Charges Stain Charges 79752 1 9 5:45 PM CDT DERMATOPATHOLOGY LABORATORY Embedded Images 5:45 PM CDT DERMATOPATHOLOGY LABORATORY Pathology/Cytolog y TISSUE SPECIMEN FROM SKIN / Unknown 04/08/2019 04/09/2019 12:35 PM CDT Addi Espinosa MD LAB - PATHOLOGY/CYTOLOGY ORD ERABLES Final Result DERMATOPATHOLOGY LABORATORY [facility] - Department of Dermatology [address] [facility] [address] [facility], [address]th [place] [address], [facility] [phone] documented in this encounter Visit Diagnoses Not on filedocumented in this encounter Care Teams Sessions Clerk Relationship Specialty Start Date End Date Keanu Yao MD [address] [facility] [address] [place] [address] PCP - General 08/11/08 documented as of this encounter
--- OUTSIDE RECORDS SUMMARY | 2025-05-07 07:46 | XMS_ITS | Encounter Summary ---
Author Organization [facility] Address [address] [facility] [place] [address] Care Team Providers Care Director Workers Compensation Name Role Phone Keanu Yao MD Primary Care Provider [phone] Encounter Details Date Type Department Care Team (Late st Contact Info) Description 09/02/2024 Lab Requisition [facility] - DermPath Lab [address] [facility] [place] [address] Addi Espinosa MD [address] [place] [address] Social History Tobacco Use Types Packs/Day Years Used Date Smoking Tobacco: Never Assessed Sex and Gender Information Value Date Recorded Sex Assigned at Not on file Legal Sex Male 5:51 PM DIRECTOR ENTERPRISE SALES Gender Identity Not on file Sexual Orientation Not on file documented as of this encounter Plan of Treatment Not on file documented as of this encounter Procedures Procedure Name Priority Date/Time Associated Diagnosis Comments DERMATOPATHOLOGY Routine 09/01/2024 12:0 0 AM DIRECTOR ENTERPRISE SALES documented in this encounter Results * DERMATOPATHOLOGY (09/01/2024 12:00 AM DIRECTOR ENTERPRISE SALES) Case Report Dermatopathology Report Case: [id number] Authorizing Provider: Addi Espinosa MD Collected: 09/01/2024 12:00 AM Ordering Location: [facility] Physician [facility] - Received: 09/02/2024 12:55 PM DermPath Lab Pathologist: Katiana Moyer MD Specimen: Skin, left posterior neck 4:23 PM DIRECTOR ENTERPRISE SALES DERMATOPATHOLOGY LABORATORY Final Diagnosis Specimen A. 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 The specimen consists of a shave biopsy measuring 8x6x1 mm. Jar 0. 4:23 PM [facility] DERMATOPATHOLOGY LABORATORY Microscopic Description Specimen A. SKIN, left posterior neck: Neutrophils, histiocytes, and multinucleated giant cells are present within the dermis. Additional deeper sections were obtained and reviewed. 4:23 PM [facility] DERMATOPATHOLOGY LABORATORY Disclaimer An external and [...] purposes. Billing Codes Specimen Charges Stain Charges 97163 1 4:23 PM [facility] DERMATOPATHOLOGY LABORATORY Embedded Images 4:23 PM [facility] DERMATOPATHOLOGY LABORATORY Pathology/Cytolog y TISSUE SPECIMEN FROM SKIN / Unknown 09/01/2024 09/02/2024 12:55 PM DIRECTOR ENTERPRISE SALES Addi Espinosa MD LAB - PATHOLOGY/CYTOLOGY ORD ERABLES Final Result DERMATOPATHOLOGY LABORATORY [facility] - Department of Dermatology [facility] Medicine [address] [place] [address], [address] [place] [address], [facility] [phone] documented in this encounter Visit Diagnoses Not on filedocumented in this encounter Care Teams Director Workers Compensation Relationship Specialty Start Date End Date Keanu Yao MD [address] [facility] [address] [place] [address] PCP - General 08/11/08 documented as of this encounter
--- OUTSIDE RECORDS SUMMARY | 2025-05-07 07:46 | XMS_ITS | Clinical Summary ---
Author Organization [facility] Address [address] [address] Phone Care Team Providers Care Kennel Helper Name Role Phone Breezy Trinidad DO Primary Care Provider [phone] Allergies No known active allergies Medications Fluticasone [...] season) 2024 10/14/2021, 02/08/2021, 01/07/2021 Influenza Immunization (#1) 2025 Hepatitis B Immunization Aged Out No [...] age to complete this topic Insurance MEDICARE [facility] Care Teams Kennel Helper Relationship Specialty Start Date End Date Breezy Trinidad DO [address] [place] [address] PCP - General Internal Medicine 04/21/19
--- OUTSIDE RECORDS SUMMARY | 2025-05-07 07:46 | XMS_ITS | Encounter Summary ---
Author Organization [facility] Address [address] [facility] [place] [address] Care Team Providers Care Asphalt Engineer Name Role Phone Keanu Yao MD Primary Care Provider [phone] Encounter Details Date Type Department Care Team (Late st Contact Info) Description 02/14/2018 Lab Requisition [facility] Care DermPath Lab [address] [facility], Third Level [address] Addi Espinosa MD [address] [place] [address] Social History Tobacco Use Types Packs/Day Years Used Date Smoking Tobacco: Never Assessed Sex and Gender Information Value Date Recorded Sex Assigned at Not on file 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 Jar 0. [...] characteristic determined by the Dermatopathology Laboratory at [facility]. These tests need not be, and therefore are not, approved by the [place] Food and Drug Administration. The tests are used for clinical purposes. Billing Codes Specimen Charges Stain Charges 61995 1 1:47 PM CDT DERMATOPATHOLOGY LABORATORY Embedded Images 1:47 PM CDT DERMATOPATHOLOGY LABORATORY Pathology/Cytolog y TISSUE SPECIMEN FROM SKIN / Unknown 02/13/2018 02/14/2018 1:42 PM CDT Addi Espinosa MD LAB - PATHOLOGY/CYTOLOGY ORD ERABLES Final Result DERMATOPATHOLOGY LABORATORY [facility] - Department of Dermatology [address] [place] [address] 5th Floor Lab [address] [phone] documented in this encounter Visit Diagnoses Not on filedocumented in this encounter Care Teams Asphalt Engineer Relationship Specialty Start Date End Date Keanu Yao MD [address] [facility] [address] [facility] [address] [place] [address] PCP - General 08/11/08 documented as of this encounter
--- OUTSIDE RECORDS SUMMARY | 2025-05-07 07:46 | XMS_ITS | Continuity of Care Document ---
Author Organization [facility] Address [address] [place] [address] Phone Care Team Providers Care Pot Room Tapper Name Role Phone Lotus Adam Unavailable Unavailable Advance Directives Directive Yes / No Effective Date File Name No Information Encounters Encounter Description Practice Location Reason(s) For Visit Diagnoses Date Provider Providers Copied on Encounter [facility], [address], [place], [place], [id number], [place] tel:[phone] [facility] No Information Sep-3 0-200 3 Kia Gautam. [address] [facility] , [address], [place], [address], [place]. tel:[phone] Family History Family Member Type Diagnosis Age At Onset No Information Payers Payer name Insurance type Covered constitution party ID Authoriza tion(s) No Information Social [...]
[2025-05-07 08:31] LABS: Alanine Aminotransferase 17 U/L (6-50); Albumin Level 4.2 g/dL (3.5-5.1); Alkaline Phosphatase 60 U/L (38-126); Anion Gap 8 mmol/L (4-12); Aspartate Amino Transferase 26 U/L (17-59); Bilirubin,Total 0.9 mg/dL (0.2-1.3); Blood Urea Nitrogen 22 mg/dL (9-20); Calcium 9.5 mg/dL (8.4-10.2); Carbon Dioxide 27 mmol/L (22-30); Chloride 102 mmol/L (98-107); Cholesterol 183 mg/dL (0-200); Estimated Glomerular Filt Rate > 60; Glucose 163 mg/dL (65-110); HDL Direct 53 mg/dL; Potassium 3.8 mmol/L (3.4-5.0); Sodium 137 mmol/L (137-145); Total Protein 7.1 g/dL (6.3-8.2); Triglycerides 115 mg/dL (<150)
[2025-05-07 09:15] LABS: Hemoglobin A1C 7.3 % (<5.7)
== END 2025-05-07 07:44 | disposition home or self-care (01) ==
PROVIDERS: PCP Nurse Practitioner; Visit Provider Nurse Practitioner
DX: E78.5 Hyperlipidemia, unspecified (principal); E11.9 Type 2 diabetes mellitus without complications
CPT/HCPCS: 36415; 80053; 80061; 83036

== ENCOUNTER 2025-06-03 09:51 | Outpatient (CLI) | payer MEDICARE, SELFPAY ==
--- OUTSIDE RECORDS SUMMARY | 2003-07-14 10:15 | XMS_ITS | Continuity of Care Document ---
Author Organization [facility] Address [address] [place] [address] Phone Care Team Providers Care Home Health Travel Ot Name Role Phone Lotus Adam Unavailable Unavailable Advance Directives Directive Yes / No Effective Date File Name No Information Encounters Encounter Description Practice Location Reason(s) For Visit Diagnoses Date Provider Providers Copied on Encounter [facility], [address], [place], [place], [id number], [place] tel:[phone] [facility] No Information Sep-3 0-200 3 Kia Gautam. [address] , [address], [place], [address], [place]. tel:[phone] Family History Family Member Type Diagnosis Age At Onset No Information Payers Payer name Insurance type Covered libertarian ID Authoriza tion(s) No Information Social History Type Description Quantity Date Captured Comments Sex Male Smoking Status No Information Chief Complaint And Reason For Visit No Information Reason For Referral Reason For Referral No Information History Of Present Illness Encounter Date Complaint History Of Prese nt Illness No Information Functional Status Date Functional Assessmen t No Information Instructions Date Instruction Additional Infor mation No Information Assessments Type Assessment Date No Information Patient Care Teams Name Effective Dates (start - stop) Status Members No Information
--- NOTE | ~2025-06-03 | XR_ITS ---
[id number] 06/03/2025 10:19 Indication: Neck pain Procedure: 4 view cervical spine Comparison: 04/24/2021 Findings: There is disc narrowing at C3-4 through C6-7. No prevertebral soft tissue swelling. There is advanced multilevel uncinate and facet hypertrophy. Lung apices are normal. Odontoid process is unremarkable. There is degenerative anterolisthesis at C2-3. Impression: 1: Progression of severe cervical spondylosis. Reviewed, dictated and finalized at location A. Impression: 1: Progression of severe cervical spondylosis.
--- OUTSIDE RECORDS SUMMARY | 2025-06-03 10:06 | XMS_ITS | Clinical Summary ---
Author Organization [facility] [address] Address [address] [place] [address] Care Team Providers Care Ip/Mosaic Technician Name Role Phone Breezy Trinidad DO Primary Care Provider [phone] Allergies Active Allergy Reactions Criticality Noted Date [...] mouth daily Active salmon oiL-omega-3 fatty acids (Perkins Oil-1000) 1,000-200 mg capsule Perkins Oil-1000 Acti ve azelastine (ASTELIN) 137 mcg [...] year Assessment & Plan (12/03/2020 2:56 PM INDUSTRIAL SEAMSTRESS): White noise to cancel out ringing sound Hearing test - [facility] Astelin (azelastine) 2 sprays into each nostril while looking down over the sink, do not sniff in or blow nose after use for at least 30 minutes twice daily Bilateral hearing loss 12/03/2020 Assessment & Plan (12/03/2020 2:58 PM INDUSTRIAL SEAMSTRESS): White noise to cancel out ringing sound Hearing test - [facility] Astelin (azelastine) 2 sprays into each nostril while looking down over the sink, do not sniff in or blow nose after use for at least 30 minutes twice daily for at least 6 weeks Dysfunction of both eustachian tubes 12/03/2020 Assessment & Plan (12/03/2020 2:57 PM INDUSTRIAL SEAMSTRESS): White noise to cancel out ringing sound Hearing test - [facility] Astelin (azelastine) 2 sprays into each nostril while looking down over the sink, do not sniff in or blow nose after use for at least 30 minutes twice daily RBBB 06/24/2019 PVC (premature ventricular contraction) 06/24/20 19 Encounters Date Type Department Care Team Description 05/26/2025 Orders Only [facility] Medicine Pathology Outreach [address] [place] [address] Unknown, Notinfile from Last 3 Months Surgical History Surgery Date Site/Laterality Comments GALLBLADDER [...] on file Legal Sex Male 3:28 AM INDUSTRIAL SEAMSTRESS Gender Identity Not on file Sexual Orientation Not on file Obstetrics History Last Filed Vital Signs Vital Sign Reading Time Taken Comments Blood Pressure 148/82 11/28/2024 2:10 PM INDUSTRIAL SEAMSTRESS Pulse 67 11/28/2024 2:10 PM INDUSTRIAL SEAMSTRESS Temperature 36.9 C (98.4 F) 05/19/2024 6:17 PM CDT Respiratory Rate 16 05/21/2024 8:48 AM CDT Oxygen Saturation 96% 11/28/2024 2:10 PM INDUSTRIAL SEAMSTRESS Inhaled Oxygen Concentration - - Weight 77.1 kg (170 lb) 11/28/2024 2:10 PM INDUSTRIAL SEAMSTRESS Height 180.3 cm (5' 11) 11/28/2024 2:10 PM INDUSTRIAL SEAMSTRESS Body Mass Index 23.71 11/28/2024 2:10 PM INDUSTRIAL SEAMSTRESS Plan of Treatment Health Maintenance Due Date Last Done Comments Depression Screening 1940 Fall Risk Assessment 1940 DTaP/Tdap/Td Vaccine (1 - Tdap) 1950 Hepatitis B Screening 1957 Pneumococcal vaccine 65+ (1 of 1 - PCV) 1989 Zoster Vaccine (1 of 2) 1989 Well Visit 65+ 2004 Covid-19 Vaccine ( season) 2024 10/14/2021, 02/08/2021, 01/07/2021 Influenza Vaccine (#1) 2025 Procedures Procedure Name Priority Date/Time Associated Diagnosis Comments SURGICAL PATHOLOGY Routine 05/26/2025 3: 00 PM CDT from Last 3 Months Results * Surgical pathology (05/26/2025 3:00 PM CDT) Skin, shave biopsy 05/26/2025 3:00 PM CDT 05/27/2025 8:06 AM CDT Narrative 05/28/2025 2:07 PM CDT EPIC results best viewed via link to PDF [facility] [address] [place] [address], [address] [address] [email or web address] Note to Patients: This report may contain a detailed description of human tissue sent by a health care provider to the laboratory for pathologic evaluation. The content of this report is essential for diagnosis and may provide important critical findings. This information may be unfamiliar to patients to review without a medical professional present. It is advised that the patient review this report in the presence of a health care provider who can answer questions and explain the details. FINAL REPORT Patient Information: PATIENT NAME: DORIS RODARTE SEX: M : 1940 (Age: 85) Specimen Information: COLLECTED: 05/26/2025 RECEIVED: 05/27/2025 REPORTED: 05/28/2025 Submitting Physician Information: Rhianna Donaldson DINING SERVICES DIRECTOR- [facility], [address] [place] [address], DERMATOPATHOLOGY REPORT RESULTS DIAGNOSIS: A. SKIN, LEFT INFERIOR LATERAL NECK, SHAVE BIOPSY: EROSION SECONDARY TO EXCORIATION Note: There is no evidence of a neoplasm in these sections. B. SKIN, LEFT DISTAL CALF, SHAVE BIOPSY: JUNCTIONAL MELANOCYTIC NEVUS, LENTIGINOUS TYPE exr/ajrr By this signature, I attest that the above diagnosis is based upon my personal examination of the slides(and/or other material indicated in the diagnosis). Cliff Otero M.D. Report Electronically Reviewed and Signed Out By Cliff Otero M.D. 05/28/2025 14:07:09 CLINICAL INFORMATION A. NEOPLASM OF UNCERTAIN BEHAVIOR VS SK VS AMELANOTIC MM B. NEOPLASM OF UNCERTAIN BEHAVIOR VS DYSPLASTIC NEVUS VS SK SPECIMEN DATA MICROSCOPIC DESCRIPTION: A. There is an erosion, fibrin and a sparse superficial perivascular mixed inflammatory cell infiltrate. (R23.4) B. There is a proliferation of enlarged, relatively uniform melanocytes arranged predominantly as solitary units but also as small nests within the epidermis at the dermo-epidermal junction. There is also reticulated epidermal hyperplasia and hyperpigmentation. (D22.9) GROSS DESCRIPTION: A. Received in a formalin-containing bottle is a superficial fragment of pale matson, finely scaling, and semi-translucent skin measuring 1.1 by 0.8 by 0.1 cm. The surgical margin is inked blue. The specimen is sectioned into 4 pieces and submitted entirely in a single cassette. Due to shrinkage, measurements may be different than those at the time of procedure. B. Received in a formalin-containing bottle is a superficial fragment of pale matson, finely scaling, and semi-translucent skin measuring 0.9 by 0.9 by 0.1 cm. The surgical margin is inked blue. The specimen bears a brown, flat, well- circumscribed area measuring 0.3 by 0.2 cm. The specimen is sectioned into 4 pieces and submitted entirely in a single cassette. Due to shrinkage, measurements may be different than those at the time of procedure. lori/anc ICD-9 ZSD.877 Clerical Data A; 01053 B; 98373 The characteristics of special, immunohistochemical, and immunofluorescence stains and in-situ hybridization tests performed by the [facility] were deemed acceptable in ongoing quality assurance tech measures and in compliance with regulations drawn from the Clinical Laboratory Improvement Act ml1039 (CLIA '88). Control reactions for all stains performed were deemed adequate and appropriate by a pathologist prior to evaluation of patient tissue. Some diagnoses were rendered with the assistance of laboratory-developed tests utilizing analyte-specific reagents; the performance characteristic of these tests were determined by [facility] and are not cleared or approved by the [place] Food an Drug administration. Laboratory developed test may only be performed in a facility that is certified by the [facility] as a high-complexity laboratory under CLIA '88. These tests are used for clinical purposes and are not investigational. us Notinfile Unknown LAB PATHOLOGY ORDERABLES Final Result from Last 3 Months Insurance MEDICARE MEDICARE [facility] MEDICARE SUPPLEMENT MEDICARE [facility] MEDICARE SUPPLEMENT Care Teams Ip/Mosaic Technician Relationship Specialty Start Date End Date Breezy Trinidad DO PCP - General Internal Medicine 05/08/24
--- OUTSIDE RECORDS SUMMARY | 2025-06-03 10:06 | XMS_ITS | Clinical Summary ---
Author Organization [facility] Address [address] [place] [address] Care Team Providers Care Fruit Or Nut Farm Worker Name Role Phone Keanu Yao MD Primary Care Provider [phone] Source Comments [facility],non-owned Affiliates and Associated Physician Practices is amultiple site organization consisting of ambulatory clinics and hospital sitesin [place], [place], [place] and [place]. This disclosure is being madepursuant to the Care Everywhere program and may not contain all information available regarding this patient. 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
--- OUTSIDE RECORDS SUMMARY | 2025-06-03 10:06 | XMS_ITS | Encounter Summary ---
Author Organization [facility] Address [address] [facility] [place] [address] Care Team Providers Care Info Analyst Name Role Phone Keanu Yao MD Primary Care Provider Encounter Details Date Type Department Care Team (Late st Contact Info) Description 02/14/2018 Lab Requisition [facility] Care DermPath Lab [address] [facility], [place] [address] Addi Espinosa MD [address] [place] [address] Social History Tobacco Use Types Packs/Day Years Used Date Smoking Tobacco: Never Assessed Sex and Gender Information Value Date Recorded Sex Assigned at Not on file 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 Jar 0. [...] characteristic determined by the Dermatopathology Laboratory at [facility]. These tests need not be, and therefore are not, approved by the [place] Food and Drug Administration. The tests are used for clinical purposes. Billing Codes Specimen Charges Stain Charges 99123 1 1:47 PM CDT DERMATOPATHOLOGY LABORATORY Embedded Images 1:47 PM CDT DERMATOPATHOLOGY LABORATORY Pathology/Cytolog y TISSUE SPECIMEN FROM SKIN / Unknown 02/13/2018 02/14/2018 1:42 PM CDT Addi Espinosa MD LAB - PATHOLOGY/CYTOLOGY ORD ERABLES Final Result DERMATOPATHOLOGY LABORATORY [facility] - Department of Dermatology [address] [place] [address] 5th Floor Lab [address] [phone] documented in this encounter Visit Diagnoses Not on filedocumented in this encounter Care Teams Info Analyst Relationship Specialty Start Date End Date Keanu Yao MD [address] [facility] [address] [facility] [address] [place] [address] PCP - General 08/11/08 documented as of this encounter
--- OUTSIDE RECORDS SUMMARY | 2025-06-03 10:06 | XMS_ITS | Clinical Summary ---
Author Organization [facility] Address [address] [address] Phone Care Team Providers Care Blueprint Reader Name Role Phone Breezy Trinidad DO Primary Care Provider [phone] Allergies No known active allergies Medications Fluticasone [...] age to complete this topic Insurance MEDICARE [facility] Care Teams Blueprint Reader Relationship Specialty Start Date End Date Breezy Trinidad DO [address] [address] PCP - General Internal Medicine 04/21/19
--- OUTSIDE RECORDS SUMMARY | 2025-06-03 10:06 | XMS_ITS | Encounter Summary ---
Author Organization [facility] Address [address] [facility] [place] 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 Shell Hu. These tests need not be, and therefore are not, approved by the [place] Food and Drug Administration. The tests are used for clinical purposes. Billing Codes Specimen Charges Stain Charges 30263 1 9 5:45 PM CDT DERMATOPATHOLOGY LABORATORY Embedded Images 5:45 PM CDT DERMATOPATHOLOGY LABORATORY Pathology/Cytolog y TISSUE SPECIMEN FROM SKIN / Unknown 04/08/2019 04/09/2019 12:35 PM CDT Addi Espinosa MD LAB - PATHOLOGY/CYTOLOGY ORD ERABLES Final Result DERMATOPATHOLOGY LABORATORY [facility] - Department of Dermatology [address] [facility], 5th [place] [address], [facility] [phone] documented in this encounter Visit Diagnoses Not on filedocumented in this encounter Care Teams Affiliate Marketing Specialist Relationship Specialty Start Date End Date Keanu Yao MD [address] [facility] [address] [place] [address] PCP - General 08/11/08 documented as of this encounter
--- OUTSIDE RECORDS SUMMARY | 2025-06-03 10:06 | XMS_ITS | Encounter Summary ---
Author Organization [facility] Address [address] [place] [address] Care Team Providers Care Campus Executive Director Name Role Phone Keanu Yao MD Primary Care Provider [phone] Encounter Details Date Type Department Care Team (Late st Contact Info) Description 10/21/2021 Lab Requisition [facility] DermPath Lab [address] [facility] [place] [address] Addi Espinosa MD [address] [place] [address] Social History Tobacco Use Types Packs/Day Years Used Date Smoking Tobacco: Never Assessed Sex and Gender Information Value Date Recorded Sex Assigned at Not on file Legal Sex Male 5:51 PM COATER ASSOCIATE Gender Identity Not on file Sexual Orientation Not on file documented as of this encounter Plan of Treatment Not on file documented as of this encounter Procedures Procedure Name Priority Date/Time Associated Diagnosis Comments DERMATOPATHOLOGY Routine 10/19/2021 12:0 0 AM COATER ASSOCIATE documented in this encounter Results * DERMATOPATHOLOGY (10/19/2021 12:00 AM COATER ASSOCIATE) Case Report Dermatopathology Report Case: [id number] Authorizing Provider: Addi Espinosa MD Collected: 10/19/2021 12:00 AM Ordering Location: [facility] DermPath Lab Received: 10/21/2021 12:25 PM Pathologist: Beth Jo MD Specimen: Skin, right superior pretibia 11:58 AM COATER ASSOCIATE DERMATOPATHOLOGY LABORATORY Final Diagnosis Specimen A. SKIN, right superior pretibia: DERMAL HEMORRHAGE (I99.8) DERMAL SCAR (L90.5) (see microscopic description) 11:58 AM [facility] DERMATOPATHOLOGY LABORATORY at [address] COATER ASSOCIATE Clinical History R/O BCC, SCC, hemangioma. 11:58 AM [facility] DERMATOPATHOLOGY LABORATORY Gross Description Specimen A: Received is one formalin filled container labeled with the patient's name and designated right superior pretibia. The specimen consists of a shave biopsy measuring [id number]. Jar 0. 11:58 AM [facility] DERMATOPATHOLOGY LABORATORY Microscopic Description Specimen A. SKIN, right superior pretibia: Sections show dermal hemorrhage with scattered hemosiderophages. There are fibroblasts and collagen bundles oriented parallel to the skin surface with elongated blood vessels, some of which are oriented perpendicular to the skin surface. 11:58 AM [facility] DERMATOPATHOLOGY LABORATORY Disclaimer An external and internal positive and negative controls are appropriate for the histochemical, immunohistochemical and immunofluorescence stain(s) in this case (if any), except where stated explicitly. The performance characteristics of the stain(s) cited in this report were developed and its performance characteristic determined by the Dermatopathology Laboratory at [facility], directed by Dr. Shell Hu. These tests need not be, and therefore are not, approved by the [place] Food and Drug Administration. The tests are used for clinical purposes. Billing Codes Specimen Charges Stain Charges 55163 1 11:58 AM [facility] DERMATOPATHOLOGY LABORATORY Embedded Images 11:58 AM [facility] DERMATOPATHOLOGY LABORATORY Pathology/Cytolog y TISSUE SPECIMEN FROM SKIN / Unknown 10/19/2021 10/21/2021 12:25 PM COATER ASSOCIATE us Addi Espinosa MD LAB - PATHOLOGY/CYTOLOGY ORD ERABLES Final Result DERMATOPATHOLOGY LABORATORY [facility] - Department of Dermatology [facility] Medicine [address] [place] [address], 3rd [place] [address], [facility] [phone] documented in this encounter Visit Diagnoses Not on filedocumented in this encounter Care Teams Campus Executive Director Relationship Specialty Start Date End Date Keanu Yao MD [address] [facility] [address] [place] [address] PCP - General 08/11/08 documented as of this encounter
--- OUTSIDE RECORDS SUMMARY | 2025-06-03 10:06 | XMS_ITS | Encounter Summary ---
Author Organization [facility] Address [address] [place] [address] Care Team Providers Care Loader Demolder Name Role Phone Keanu Yao MD Primary Care Provider Encounter Details Date Type Department Care Team (Late st Contact Info) Description 09/02/2024 Lab Requisition [facility] - DermPath Lab [address] [facility] [place] [address] Addi Espinosa MD [address] [place] [address] Social History Tobacco Use Types Packs/Day Years Used Date Smoking Tobacco: Never Assessed Sex and Gender Information Value Date Recorded Sex Assigned at Not on file Legal Sex Male 5:51 PM CERTIFIED FIRST ASSISTANT Gender Identity Not on file Sexual Orientation Not on file documented as of this encounter Plan of Treatment Not on file documented as of this encounter Procedures Procedure Name Priority Date/Time Associated Diagnosis Comments DERMATOPATHOLOGY Routine 09/01/2024 12:0 0 AM CERTIFIED FIRST ASSISTANT documented in this encounter Results * DERMATOPATHOLOGY (09/01/2024 12:00 AM CERTIFIED FIRST ASSISTANT) Case Report Dermatopathology Report Case: [id number] Authorizing Provider: Addi Espinosa MD Collected: 09/01/2024 12:00 AM Ordering Location: [facility] Physician [facility] - Received: 09/02/2024 12:55 PM DermPath Lab Pathologist: Katiana Moyer MD Specimen: Skin, left posterior neck 4:23 PM CERTIFIED FIRST ASSISTANT DERMATOPATHOLOGY LABORATORY Final Diagnosis Specimen A. SKIN, left posterior neck: GRANULOMATOUS DERMATITIS CONSISTENT WITH A RUPTURED CYST OR HAIR FOLLICLE (L72.0) (see microscopic description) 4:23 PM [facility] DERMATOPATHOLOGY LABORATORY at 1623 CERTIFIED FIRST ASSISTANT Clinical History R/o SCC vs BCC 4:23 PM [facility] DERMATOPATHOLOGY LABORATORY Gross Description Specimen A: Received is one formalin filled container labeled with the patient's name and designated left posterior neck. The specimen consists of a shave biopsy measuring 8x6x1 mm. Jar 0. 4:23 PM [facility] DERMATOPATHOLOGY LABORATORY Microscopic Description Specimen A. SKIN, left posterior neck: Neutrophils, histiocytes, and multinucleated giant cells are present within the dermis. Additional deeper sections were obtained and reviewed. 4:23 PM [facility] DERMATOPATHOLOGY LABORATORY Disclaimer An external and internal positive and negative controls are appropriate for the histochemical, immunohistochemical and immunofluorescence stain(s) in this case (if any), except where stated explicitly. The performance characteristics of the stain(s) cited in this report were developed and its performance characteristic determined by the Dermatopathology Laboratory at [facility], directed by Dr. Shell Hu. These tests need not be, and therefore are not, approved by the [place] Food and Drug Administration. The tests are used for clinical purposes. Billing Codes Specimen Charges Stain Charges 26392 1 4:23 PM [facility] DERMATOPATHOLOGY LABORATORY Embedded Images 4:23 PM [facility] DERMATOPATHOLOGY LABORATORY Pathology/Cytolog y TISSUE SPECIMEN FROM SKIN / Unknown 09/01/2024 09/02/2024 12:55 PM CERTIFIED FIRST ASSISTANT Addi Espinosa MD LAB - PATHOLOGY/CYTOLOGY ORD ERABLES Final Result DERMATOPATHOLOGY LABORATORY [facility] - Department of Dermatology [facility] [address] [place] [address], [address] [place] [address], [facility] [phone] documented in this encounter Visit Diagnoses Not on filedocumented in this encounter Care Teams Loader Demolder Relationship Specialty Start Date End Date Keanu Yao MD [address] [facility] [address] [place] [address] PCP - General 08/11/08 documented as of this encounter
--- OUTSIDE RECORDS SUMMARY | 2025-06-03 10:06 | XMS_ITS | Encounter Summary ---
Author Organization [facility] Address [address] [place] [address] Care Team Providers Care Director Payer Name Role Phone Keanu Yao MD Primary Care Provider [phone] Encounter Details Date Type Department Care Team (Late st Contact Info) Description 11/23/2022 Lab Requisition [facility] DermPath Lab [address], [facility] [place] [address] Addi Espinosa MD [address] [place] [address] Social History Tobacco Use Types Packs/Day Years Used Date Smoking Tobacco: Never Assessed Sex and Gender Information Value Date Recorded Sex Assigned at Not on file Legal Sex Male 5:51 PM APPLICATION SYSTEMS ARCHITECT Gender Identity Not on file Sexual Orientation Not on file documented as of this encounter Plan of Treatment Not on file documented as of this encounter Procedures Procedure Name Priority Date/Time Associated Diagnosis Comments DERMATOPATHOLOGY Routine 11/21/2022 12:0 0 AM APPLICATION SYSTEMS ARCHITECT documented in this encounter Results * DERMATOPATHOLOGY (11/21/2022 12:00 AM APPLICATION SYSTEMS ARCHITECT) Case Report Dermatopathology Report Case: [id number] Authorizing Provider: Addi Espinosa MD Collected: 11/21/2022 12:00 AM Ordering Location: [facility] DermPath Lab Received: 11/23/2022 06:57 AM Pathologist: Jahaira Soliz MD Specimens: A) - Skin, right cheek below eye B) - Skin, right paraspinal 4:43 PM APPLICATION SYSTEMS ARCHITECT DERMATOPATHOLOGY LABORATORY Final Diagnosis Specimen A. SKIN, right cheek below eye: SEBACEOUS HYPERPLASIA (L73.8) Specimen B. SKIN, right paraspinal: DERMAL FIBROSIS (L90.5) (see microscopic description and comment) 3 4:43 PM [facility] DERMATOPATHOLOGY LABORATORY at 1643 APPLICATION SYSTEMS ARCHITECT Clinical History A-B: R/O BCC, SCC 3 4:43 PM [facility] DERMATOPATHOLOGY LABORATORY Gross Description Specimen A: [...] 8x7x1 mm. Jar 0. 3 4:43 PM [facility] DERMATOPATHOLOGY LABORATORY Microscopic Description Specimen A. [...] aspect of a dermatofibroma. 3 4:43 PM [facility] DERMATOPATHOLOGY LABORATORY Disclaimer An external and internal positive and negative controls are appropriate for the histochemical, immunohistochemical and immunofluorescence stain(s) in this case (if any), except where stated explicitly. The performance characteristics of the stain(s) cited in this report were developed and its performance characteristic determined by the Dermatopathology Laboratory at [facility], directed by Dr. Shell Hu. These tests need not be, and therefore are not, approved by the [place] Food and Drug Administration. The tests are used for clinical purposes. Billing Codes Specimen Charges Stain Charges 97604 86894 1 1 23801 1 3 4:43 PM [facility] DERMATOPATHOLOGY LABORATORY Embedded Images 3 4:43 PM [facility] DERMATOPATHOLOGY LABORATORY Pathology/Cytology TISSUE SPECIMEN FROM SKIN / Unknown 11/21/2022 11/23/2022 6:57 AM [facility] Miscellaneous samples (specimen) TISSUE SPECIMEN FROM SKIN / Unknown 11/21/2022 11/23/2022 6:57 AM APPLICATION SYSTEMS ARCHITECT us Addi Espinosa MD LAB - PATHOLOGY/CYTOLOGY ORD ERABLES Final Result DERMATOPATHOLOGY LABORATORY [facility] - Department of Dermatology [facility] Specialized Medicine [address] [place] [address], [address] [phone] documented in this encounter Visit Diagnoses Not on filedocumented in this encounter Care Teams Director Payer Relationship Specialty Start Date End Date Keanu Yao MD [address] [facility] [address] [place] [address] PCP - General 08/11/08 documented as of this encounter
--- OUTSIDE RECORDS SUMMARY | 2025-06-03 10:06 | XMS_ITS | Encounter Summary ---
Author Organization [facility] Address [address] [facility] [place] [address] Care Team Providers Care Piano Builder Name Role Phone Keanu Yao MD Primary Care Provider [phone] Encounter Details Date Type Department Care Team (Late st Contact Info) Description 12/16/[address] [facility] DermPath Lab [address] [facility] [place] [address] Addi Espinosa MD [address] [place] [address] Social History Tobacco Use Types Packs/Day Years Used Date Smoking Tobacco: Never Assessed Sex and Gender Information Value Date Recorded Sex Assigned at Not on file Legal Sex Male 5:51 PM MATERIALS ENGINEERING TECHNICIAN Gender Identity Not on file Sexual Orientation Not on file documented as of this encounter Plan of Treatment Not on file documented as of this encounter Procedures Procedure Name Priority Date/Time Associated Diagnosis Comments DERMATOPATHOLOGY Routine 12/15/2020 3:33 AM MATERIALS ENGINEERING TECHNICIAN documented in this encounter Results * DERMATOPATHOLOGY (12/15/2020 3:33 AM MATERIALS ENGINEERING TECHNICIAN) Case Report Dermatopathology Report Case: [id number] Authorizing Provider: Addi Espinosa MD Collected: 12/15/2020 03:33 AM Ordering Location: [facility] DermPath Lab Received: 12/16/2020 01:27 PM Pathologist: Sherley Hu MD Specimens: A) - Skin, below right earlobe B) - Skin, right post base of neck 5:19 PM MATERIALS ENGINEERING TECHNICIAN DERMATOPATHOLOGY LABORATORY Final Diagnosis Specimen A. SKIN, below right earlobe: BASAL CELL CARCINOMA, NODULAR TYPE (C44.212) Specimen B. 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 B: R/O dysplastic nevus. 5:19 PM [facility] DERMATOPATHOLOGY LABORATORY Gross Description Specimen A: Received is one formalin filled container labeled with the patient's name and designated below right earlobe. The specimen consists of a shave biopsy measuring 0l6p3dc. Jar 0. Specimen B: Received is one formalin filled container labeled with the patient's name and designated right post base of neck. The specimen consists of a shave biopsy measuring [id number]. Jar 0. 5:19 PM [facility] DERMATOPATHOLOGY LABORATORY Microscopic Description Specimen [...] Dr. Katiana Moyer, who agrees. 5:19 PM [facility] DERMATOPATHOLOGY LABORATORY Disclaimer An external and internal positive and negative controls are appropriate for the histochemical, immunohistochemical and immunofluorescence stain(s) in this case (if any), except where stated explicitly. The performance characteristics of the stain(s) cited in this report were developed and its performance characteristic determined by the Dermatopathology Laboratory at [facility], directed by Dr. Shell Hu. These tests need not be, and therefore are not, approved by the [place] Food and Drug Administration. The tests are used for clinical purposes. Billing Codes Specimen Charges Stain Charges 42913 62297 1 1 05116 1 1 5:19 PM [facility] DERMATOPATHOLOGY LABORATORY Embedded Images 5:19 PM MATERIALS ENGINEERING TECHNICIAN DERMATOPATHOLOGY LABORATORY Pathology/Cytology TISSUE SPECIMEN FROM SKIN / Unknown 12/15/2020 3:33 AM MATERIALS ENGINEERING TECHNICIAN 12/16/2020 1:27 PM MATERIALS ENGINEERING TECHNICIAN Miscellaneous samples (specimen) TISSUE SPECIMEN FROM SKIN / Unknown 12/15/2020 3:33 AM MATERIALS ENGINEERING TECHNICIAN 12/16/2020 1:27 PM MATERIALS ENGINEERING TECHNICIAN Addi Espinosa MD LAB - PATHOLOGY/CYTOLOGY ORD ERABLES Final Result DERMATOPATHOLOGY LABORATORY [facility] - Department of Dermatology [facility] Specialized Medicine [address] [place] [address], [address] [phone] documented in this encounter Visit Diagnoses Not on filedocumented in this encounter Care Teams Piano Builder Relationship Specialty Start Date End Date Keanu Yao MD [address] [facility] [address] [place] [address] PCP - General 08/11/08 documented as of this encounter
--- OUTSIDE RECORDS SUMMARY | 2025-06-03 10:06 | XMS_ITS | Encounter Summary ---
Author Organization [facility] Address [address] [facility] [place] [address] Care Team Providers Care Hand Splitter Name Role Phone Keanu Yao MD Primary Care Provider [phone] Encounter Details Date Type Department Care Team (Late st Contact Info) Description 04/15/2018 Lab Requisition [facility] Care DermPath Lab [address] [facility] [place] [address] Addi Espinosa MD [address] [place] [address] Social History Tobacco Use Types Packs/Day Years Used Date Smoking Tobacco: Never Assessed Sex and Gender Information Value Date Recorded Sex Assigned at Not on file 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 Male 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 Gender Identity Not on file Sexual Orientation Not on file documented as of this encounter Plan of Treatment Not on file documented as of this encounter Procedures Procedure Name Priority Date/Time Associated Diagnosis Comments DERMATOPATHOLOGY Routine 04/12/2018 12:0 0 AM CDT documented in this encounter Results * DERMATOPATHOLOGY (04/12/2018 12:00 AM CDT) Case Report Dermatopathology Report [id number]: [id number] Authorizing Provider: Addi Espinosa MD Collected: 04/12/2018 12:00 AM Pathologist: Helen Guajardo MD Received: 04/15/2018 11:29 AM Specimens: A) - Skin, right buddhism B) - Skin, left nose 8 1:33 PM CDT DERMATOPATHOLOGY LABORATORY Final Diagnosis Specimen A. SKIN, right buddhism: SEBORRHEIC KERATOSIS (L82.1) Specimen B. SKIN, left nose: SQUAMOUS CELL CARCINOMA, WELL DIFFERENTIATED (C44.321) 1:33 PM CDT DERMATOPATHOLOGY LABORATORY at 1333 CDT Clinical History A: R/O ISK, BCC, SCC. B: R/O BCC. 1:33 PM CDT DERMATOPATHOLOGY LABORATORY Gross Description Specimen A: Received is one formalin filled container labeled with the patient's name and designated right buddhism. The specimen consists of a shave biopsy measuring [id number]. Jar 0. Specimen B: Received is one formalin filled container labeled with the patient's name and designated left nose. The specimen consists of a shave biopsy measuring [id number]. Jar 0. 1:33 PM CDT DERMATOPATHOLOGY LABORATORY Microscopic Description Specimen A. SKIN, right buddhism: Sections show an acanthotic lesion composed of [...] characteristic determined by the Dermatopathology Laboratory at [facility]. These tests need not be, and therefore are not, approved by the [place] Food and Drug Administration. The tests are used for clinical purposes. Billing Codes Specimen Charges Stain Charges 93950 32176 1 1 1:33 PM CDT DERMATOPATHOLOGY LABORATORY Embedded Images 1:33 PM CDT DERMATOPATHOLOGY LABORATORY Pathology/Cytology TISSUE SPECIMEN FROM SKIN / Unknown 04/12/2018 04/15/2018 11:29 AM CDT Miscellaneous samples (specimen) TISSUE SPECIMEN FROM SKIN / Unknown 04/12/2018 04/15/2018 11:29 AM CDT us Addi Espinosa MD LAB - PATHOLOGY/CYTOLOGY ORD ERABLES Final Result DERMATOPATHOLOGY LABORATORY [facility] - Department of Dermatology [address]th [place] [address], [facility] [phone] documented in this encounter Visit Diagnoses Not on filedocumented in this encounter Care Teams Hand Splitter Relationship Specialty Start Date End Date Keanu Yao MD [address] [facility] [address] [place] [address] PCP - General 08/11/08 documented as of this encounter
== END 2025-06-03 09:52 | disposition home or self-care (01) ==
PROVIDERS: PCP Internal Medicine; Visit Provider Nurse Practitioner
DX: M43.02 Spondylolysis, cervical region (principal)
CPT/HCPCS: 72040

== ENCOUNTER 2025-06-23 07:38 | Outpatient (CLI) | payer MEDICARE, SELFPAY ==
--- OUTSIDE RECORDS SUMMARY | 2003-07-14 10:15 | XMS_ITS | Continuity of Care Document ---
[facility] Organization [facility] Address [address] [place] [address] Phone Care Team Providers Care Ward Secretary Name Role Phone Lotus Adam Unavailable Unavailable Advance Directives Directive Yes / No Effective Date File Name No Information Encounters Encounter Description Practice Location Reason(s) For Visit Diagnoses Date Provider Providers Copied on Encounter [facility], [address], [place], [place], [id number], [place] tel:[phone] [facility] No Information Sep-3 0-200 3 Kia Gautam. [address] , [address], [place], [address], [place]. tel:[phone] Family History Family Member Type Diagnosis Age At Onset No Information Payers Payer name Insurance type Covered green party ID Authoriza tion(s) No Information Social History [...]
--- NOTE | ~2025-06-23 | MR_ITS ---
EXAMINATION: MRA brain wo con DATE: 06/23/2025 08:48 INDICATION: Dizziness and giddiness. TECHNIQUE: Magnetic resonance angiography (MRA) of the brain was performed without intravenous contrast with T1-weighted SPGR by the 3D [id number] technique. Maximum intensity projection 3D-reconstructions were obtained. COMPARISON: Brain MRI 08/31/2021 FINDINGS: The vertebral arteries are codominant. There is no significant stenosis of basilar artery or the posterior cerebral arteries. There is no significant stenosis of the intracranial internal carotid arteries or anterior or middle cerebral arteries. Anterior communicating artery is normal. Posterior commun icating arteries are not identified. There is no aneurysm. IMPRESSION: 1. Normal MRA. Reviewed, dictated and finalized at location E. IMPRESSION: 1. Normal MRA.
--- OUTSIDE RECORDS SUMMARY | 2025-06-23 07:58 | XMS_ITS | Clinical Summary ---
Author Organization [facility] [address] Address [address] [place] [address] Care Team Providers Care Conciliation Court Judge Name Role Phone Breezy Trinidad Primary Care Provider [phone] Allergies Active Allergy Reactions Criticality Noted Date [...] (25 mg total) by mouth daily Active multivitamin capsule Take 1 capsule by mouth daily Active salmon oiL-omega-3 fatty acids (Willard Oil-1000) 1,000-200 mg capsule Willard Oil-1000 Active psyllium 0.52 gram capsule Take 1 capsule (0.52 g total) by mouth daily Active latanoprost (XALATAN) 0.005 % ophthalmic solution INSTILL 1 DROP INTO EACH EYE ONCE DAILY AT BEDTIME 4 Active pioglitazone (ACTOS) 15 mg tablet Take 1 tablet (15 mg total) by mouth daily 5 Active timolol (TIMOPTIC) 0.5 % ophthalmic solution INSTILL 1 DROP INTO EACH EYE ONCE DAILY 5 Active Lumigan 0.01 % ophthalmic drops 0 06/04/20 25 Discontinu ed(Patient Reported) azelastine (ASTELIN) 137 mcg (0.1 %) nasal sprayIndicatio ns:Vasomotor rhinitis Administer 2 sprays into each nostril 2 (two) times a day Use in each nostril as directed 360 mL 3 2 06/04/20 25 Discontinu ed(Patient Reported) cyanocobalamin (Vitamin B-12) 1,000 mcg tabletIndicati ons:Prevention of Vitamin B12 Deficiency Take 1 tablet (1,000 mcg total) by mouth daily 06/04/20 25 Discontinu ed(Patient Reported) Active Problems Problem Noted Date Diagnosed Date [...] year Assessment & Plan (12/03/2020 2:56 PM ACCOUNTING ASSISTANT): White noise to cancel out ringing sound Hearing test - [facility] (azelastine) 2 sprays into each nostril while looking down over the sink, do not sniff in or blow nose after use for at least 30 minutes twice daily Bilateral hearing loss 12/03/2020 Assessment & Plan (12/03/2020 2:58 PM ACCOUNTING ASSISTANT): White noise to cancel out ringing sound Hearing test - [facility] (azelastine) 2 sprays into each nostril while looking down over the sink, do not sniff in or blow nose after use for at least 30 minutes twice daily for at least 6 weeks Dysfunction of both eustachian tubes 12/03/2020 Assessment & Plan (12/03/2020 2:57 PM ACCOUNTING ASSISTANT): White noise to cancel out ringing sound Hearing test - [facility] Astelin (azelastine) 2 sprays into each nostril while looking down over the sink, do not sniff in or blow nose after use for at least 30 minutes twice daily RBBB 06/24/2019 PVC (premature ventricular contraction) 06/24/20 19 Encounters Date Type Department Care Team Description 06/04/2025 11:00 AM CDT Office Visit [facility] Cardiology at [address] [place] [address] Flakito Iniguez MD Aortic valve sclerosis (Primary Dx); RBBB; PVC (premature ventricular contraction) 05/26/2025 Orders Only [facility] Medicine Pathology Outreach [address] [place] [address] Unknown, Notinfile from Last 3 Months Surgical [...] on file Legal Sex Male 3:28 AM ACCOUNTING ASSISTANT Gender Identity Not on file Sexual Orientation Not on file Obstetrics History Last Filed Vital Signs Vital Sign Reading Time Taken Comments Blood Pressure 120/70 06/04/2025 10:58 AM CDT Pulse 75 06/04/2025 10:58 AM CDT Temperature 36.9 C (98.4 F) 05/19/2024 6:17 PM CDT Respiratory Rate 16 05/21/2024 8:48 AM CDT Oxygen Saturation 94% 06/04/2025 10:58 AM CDT Inhaled Oxygen Concentration - - Weight 81 kg (178 lb 9.6 oz) 06/04/2025 10:58 AM CDT Height 180.3 cm (5' 11) 06/04/2025 10:58 AM CDT Body Mass Index 24.91 06/04/2025 10:58 AM CDT Plan of Treatment Health Maintenance Due Date Last Done Comments Depression Screening 1940 Fall Risk Assessment 1940 DTaP/Tdap/Td Vaccine (1 - Tdap) 1950 Hepatitis B Screening 1957 Pneumococcal vaccine 65+ (1 of 1 - PCV) 1989 Zoster Vaccine (1 of 2) 1989 Well Visit 65+ 2004 Covid-19 Vaccine ( - season) 2024 10/14/2021, 02/08/2021, 01/07/2021 Influenza Vaccine (#1) 2025 Procedures Procedure Name Priority Date/Time Associated Diagnosis Comments SURGICAL PATHOLOGY Routine 05/26/2025 3: 00 PM CDT from Last 3 Months Results * Surgical pathology (05/26/2025 3:00 PM CDT) Skin, shave biopsy 05/26/2025 3:00 PM CDT 05/27/2025 8:06 AM CDT Narrative 05/28/2025 2:07 PM CDT [facility] results best viewed via link to PDF [facility] - Dermatopathology Center [facility], [address], [place] [address] [email or web address] Note to Patients: This report may contain [...] 05/27/2025 REPORTED: 05/28/2025 Submitting Physician Information: Rhianna Donaldson, [facility] Skin [facility] Center [facility], [address] [place] [address], DERMATOPATHOLOGY REPORT RESULTS DIAGNOSIS: A. SKIN, LEFT [...] procedure. lori/anc ICD-9 ZSD.877 Clerical Data A; 40371 B; 47002 The characteristics of special, immunohistochemical, and immunofluorescence stains and in-situ hybridization tests performed by the [facility] Dermatopathology Center were deemed acceptable in ongoing quality systems specialist measures and in compliance with regulations drawn from the Clinical Laboratory Improvement Act ot6041 (CLIA '88). Control reactions for all stains performed were deemed adequate and appropriate by a pathologist prior to evaluation of patient tissue. Some diagnoses were rendered with the assistance of laboratory-developed tests utilizing analyte-specific reagents; the performance characteristic of these tests were determined by [facility] and are not cleared or approved by the [place] Food an Drug administration. Laboratory developed test may only be performed in a facility that is certified by the [facility] as a high-complexity laboratory under CLIA '88. These tests are used for clinical purposes and are not investigational. us Notinfile Unknown LAB PATHOLOGY ORDERABLES Final Result from Last 3 Months Insurance MEDICARE MEDICARE [facility] MEDICARE SUPPLEMENT MEDICARE [facility] MEDICARE SUPPLEMENT Care Teams Conciliation Court Judge Relationship Specialty Start Date End Date Breezy Trinidad DO PCP - General Internal Medicine 05/08/24
--- OUTSIDE RECORDS SUMMARY | 2025-06-23 07:58 | XMS_ITS | Encounter Summary ---
Author Organization [facility] Address [address] [facility] [place] [address] Care Team Providers Care Insert Molding Operator Name Role Phone Keanu Yao MD Primary Care Provider Encounter Details Date Type Department Care Team (Late st Contact Info) Description 09/02/2024 Lab Requisition [facility] - DermPath Lab [address] [facility] [place] [address] Addi Espinosa MD [address] [place] [address] Social History Tobacco Use Types Packs/Day Years Used Date Smoking Tobacco: Never Assessed Sex and Gender Information Value Date Recorded Sex Assigned at Not on file Legal Sex Male 5:51 PM RED HAT LINUX ENGINEER Gender Identity Not on file Sexual Orientation Not on file documented as of this encounter Plan of Treatment Not on file documented as of this encounter Procedures Procedure Name Priority Date/Time Associated Diagnosis Comments DERMATOPATHOLOGY Routine 09/01/2024 12:0 0 AM RED HAT LINUX ENGINEER documented in this encounter Results * DERMATOPATHOLOGY (09/01/2024 12:00 AM RED HAT LINUX ENGINEER) Case Report Dermatopathology Report Case: [id number] Authorizing Provider: Addi Espinosa MD Collected: 09/01/2024 12:00 AM Ordering Location: [facility] Physician [facility] - Received: 09/02/2024 12:55 PM DermPath Lab Pathologist: Katiana Moyer MD Specimen: Skin, left posterior neck 4:23 PM RED HAT LINUX ENGINEER DERMATOPATHOLOGY LABORATORY Final Diagnosis Specimen A. 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 Shell Hu. These tests need not be, and therefore are not, approved by the [place] Food and Drug Administration. The tests are used for clinical purposes. Billing Codes Specimen Charges Stain Charges 43347 1 4:23 PM [facility] DERMATOPATHOLOGY LABORATORY Embedded Images 4:23 PM [facility] DERMATOPATHOLOGY LABORATORY Pathology/Cytolog y TISSUE SPECIMEN FROM SKIN / Unknown 09/01/2024 09/02/2024 12:55 PM RED HAT LINUX ENGINEER Addi Espinosa MD LAB - PATHOLOGY/CYTOLOGY ORD ERABLES Final Result DERMATOPATHOLOGY LABORATORY [facility] - Department of Dermatology [facility] Medicine [address] [place] [address], 3rd [place] [address], [facility] [phone] documented in this encounter Visit Diagnoses Not on filedocumented in this encounter Care Teams Insert Molding Operator Relationship Specialty Start Date End Date Keanu Yao MD [address] [facility] [address] [place] [address] PCP - General 08/11/08 documented as of this encounter
--- OUTSIDE RECORDS SUMMARY | 2025-06-23 07:58 | XMS_ITS | Clinical Summary ---
Author Organization [facility] Address [address] [address] Phone Care Team Providers Care Real Estate Office Manager Name Role Phone Breezy Trinidad DO [...] information technology Not on file Not on terrenec e Not on file Last Filed Vital [...] (Adult) (1 - 1-dose 75+ series) 2014 Influenza Immunization (#1) 2025 SARS-COV-2 Immunization ( season) 2025 10/14/2021, 02/08/2021, 01/07/2021 Hepatitis B Immunization Aged Out No longer [...] age to complete this topic Insurance MEDICARE [facility] Care Teams Real Estate Office Manager Relationship Specialty Start Date End Date Breezy Trinidad DO [address] [address] PCP - General Internal Medicine 04/21/19
--- OUTSIDE RECORDS SUMMARY | 2025-06-23 07:58 | XMS_ITS | Clinical Summary ---
Author Organization [facility] Address [address] [place] [address] Care Team Providers Care Cooker Loader Name Role Phone Keanu Yao MD Primary Care Provider [phone] Source Comments [facility],non-owned Affiliates and Associated Physician Practices is amultiple site organization consisting of ambulatory clinics and hospital sitesin [place], [place], [place] and [place]. This disclosure is being madepursuant to the Care Everywhere program and may not contain all information available regarding this patient. Last updated 18.[facility] [employer] Social History Tobacco Use Types Packs/Day Years Used Date Smoking Tobacco: Never Assessed Sex and Gender Information Value Date Recorded Sex Assigned at Not on file Legal Sex Male 5:51 PM DIRECTOR OF PUPIL PERSONNEL PROGRAM Gender Identity Not on file Sexual Orientation Not on file Plan of Treatment Health Maintenance Due Date Last Done Comments MEDICARE AWV 12 MONTHS 1939 DTAP/TDAP/TD VACCINES (1 - Tdap) 1958 PNEUMOCOCCAL VACCINE 50+ (1 of 1 - PCV) 1989 ZOSTER VACCINE (1 of 2) 1989 Respiratory Syncytial Virus (RSV) Vaccine Pt: or over 60 yrs (1 - 1-dose 75+ series) 2014 DEPRESSION SCREENING 10/15/2024 COVID-19 VACCINE (1 - 2023-2 5 season) 2025 INFLUENZA VACCINE (#1) 2025 HEPATITIS B VACCINE [...] ANTHEM MEDICARE ANTHEM MEDICARE ANTHEM Care Teams Cooker Loader Relationship Specialty Start Date End Date Keanu Yao MD [address] [place] [address] PCP - General 08/11/08
--- OUTSIDE RECORDS SUMMARY | 2025-06-23 07:58 | XMS_ITS | Encounter Summary ---
Author Organization [facility] Address [address] [place] [address] Care Team Providers Care Tool Room Supervisor Name Role Phone Keanu Yao MD Primary Care Provider [phone] Encounter Details Date Type Department Care Team (Late st Contact Info) Description 04/09/2019 Lab Requisition [facility] Care DermPath Lab [address] [facility], [place] [address] Addi Espinosa MD [address] [place] [address] Social History Tobacco Use Types Packs/Day Years Used Date Smoking Tobacco: Never Assessed Sex and Gender Information Value Date Recorded Sex Assigned at Not on file Legal Sex Male 5:51 PM BIODIESEL TECHNOLOGY MANAGER Gender Identity Not on file Sexual Orientation Not on file documented as of this encounter Plan of Treatment Not on file documented as of this encounter Procedures Procedure Name Priority Date/Time Associated Diagnosis Comments DERMATOPATHOLOGY Routine 04/08/2019 12:0 0 AM CDT documented in this encounter Results * DERMATOPATHOLOGY (04/08/2019 12:00 AM CDT) Case Report Dermatopathology Report Case: [id number] Authorizing Provider: Addi Espinosa MD Collected: 04/08/2019 12:00 AM Pathologist: Shelrey Hu MD Received: 04/09/2019 12:35 PM Specimen: [...] Dermatopathology Laboratory at [facility], directed by Dr. Shell Hu. These tests need not be, and therefore are not, approved by the [place] Food and Drug Administration. The tests are used for clinical purposes. Billing Codes Specimen Charges Stain Charges 99645 1 9 5:45 PM CDT DERMATOPATHOLOGY LABORATORY Embedded Images 5:45 PM CDT DERMATOPATHOLOGY LABORATORY Pathology/Cytolog y TISSUE SPECIMEN FROM SKIN / Unknown 04/08/2019 04/09/2019 12:35 PM CDT Addi Espinosa MD LAB - PATHOLOGY/CYTOLOGY ORD ERABLES Final Result DERMATOPATHOLOGY LABORATORY [facility] - Department of Dermatology [address] [facility], 5th [place] [address], [facility] [phone] documented in this encounter Visit Diagnoses Not on filedocumented in this encounter Care Teams Tool Room Supervisor Relationship Specialty Start Date End Date Keanu Yao MD [address] [facility] [address] [place] [address] PCP - General 08/11/08 documented as of this encounter
--- OUTSIDE RECORDS SUMMARY | 2025-06-23 07:58 | XMS_ITS | Encounter Summary ---
Author Organization [facility] Address [address] [facility] [place] [address] Care Team Providers Care Commercial Intelligence Manager Name Role Phone Keanu Yao MD Primary Care Provider [phone] Encounter Details Date Type Department Care Team (Late st Contact Info) Description 12/16/2020 Lab Requisition [facility] DermPath Lab [address] [facility] [place] [address] Addi Espinosa MD [address] [place] [address] Social History Tobacco Use Types Packs/Day Years Used Date Smoking Tobacco: Never Assessed Sex and Gender Information Value Date Recorded Sex Assigned at Not on file Legal Sex Male 5:51 PM DEVELOPMENT EDUCATOR Gender Identity Not on file Sexual Orientation Not on file documented as of this encounter Plan of Treatment Not on file documented as of this encounter Procedures Procedure Name Priority Date/Time Associated Diagnosis Comments DERMATOPATHOLOGY Routine 12/15/2020 3:33 AM DEVELOPMENT EDUCATOR documented in this encounter Results * DERMATOPATHOLOGY (12/15/2020 3:33 AM DEVELOPMENT EDUCATOR) Case Report Dermatopathology Report Case: [id number] Authorizing Provider: Addi Espinosa MD Collected: 12/15/2020 03:33 AM Ordering Location: [facility] DermPath Lab Received: 12/16/2020 01:27 PM Pathologist: Sherley Hu MD Specimens: A) - Skin, below right earlobe B) - Skin, right post base of neck 5:19 PM DEVELOPMENT EDUCATOR DERMATOPATHOLOGY LABORATORY Final Diagnosis Specimen A. SKIN, below right earlobe: BASAL CELL CARCINOMA, NODULAR TYPE (C44.212) Specimen B. 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 B: R/O dysplastic nevus. 5:19 PM [facility] DERMATOPATHOLOGY LABORATORY Gross Description Specimen A: Received is one formalin filled container labeled with the patient's name and designated below right earlobe. The specimen consists of a shave biopsy measuring [id number]. Jar 0. Specimen B: Received is one formalin filled container labeled with the patient's name and designated right post base of neck. The specimen consists of a shave biopsy measuring [id number]. Jar 0. 5:19 PM [facility] DERMATOPATHOLOGY LABORATORY Microscopic Description Specimen A. [...] Dr. Katiana Moyer, who agrees. 5:19 PM [facility] DERMATOPATHOLOGY LABORATORY Disclaimer An external and [...] purposes. Billing Codes Specimen Charges Stain Charges 09950 02626 1 1 38994 1 1 5:19 PM [facility] DERMATOPATHOLOGY LABORATORY Embedded Images 5:19 PM DEVELOPMENT EDUCATOR DERMATOPATHOLOGY LABORATORY Pathology/Cytology TISSUE SPECIMEN FROM SKIN / Unknown 12/15/2020 3:33 AM DEVELOPMENT EDUCATOR 12/16/2020 1:27 PM DEVELOPMENT EDUCATOR Miscellaneous samples (specimen) TISSUE SPECIMEN FROM SKIN / Unknown 12/15/2020 3:33 AM DEVELOPMENT EDUCATOR 12/16/2020 1:27 PM DEVELOPMENT EDUCATOR Addi Espinosa MD LAB - PATHOLOGY/CYTOLOGY ORD ERABLES Final Result DERMATOPATHOLOGY LABORATORY [facility] - Department of Dermatology [facility] [address] [place] [address], [address] [phone] documented in this encounter Visit Diagnoses Not on filedocumented in this encounter Care Teams Commercial Intelligence Manager Relationship Specialty Start Date End Date Keanu Yao MD [address] [facility] [address] [place] [address] PCP - General 08/11/08 documented as of this encounter
--- OUTSIDE RECORDS SUMMARY | 2025-06-23 07:58 | XMS_ITS | Encounter Summary ---
Author Organization [facility] Address [address] [facility] [place] [address] Care Team Providers Care Janitor Helper Name Role Phone Keanu Yao MD Primary Care Provider [phone] Encounter Details Date Type Department Care Team (Late st Contact Info) Description 11/23/2022 Lab Requisition [facility] DermPath Lab [address] [facility] [place] [address] Addi Espinosa MD [address] [place] [address] Social History Tobacco Use Types Packs/Day Years Used Date Smoking Tobacco: Never Assessed Sex and Gender Information Value Date Recorded Sex Assigned at Not on file Legal Sex Male 5:51 PM HEALTH PROFESSIONAL Gender Identity Not on file Sexual Orientation Not on file documented as of this encounter Plan of Treatment Not on file documented as of this encounter Procedures Procedure Name Priority Date/Time Associated Diagnosis Comments DERMATOPATHOLOGY Routine 11/21/2022 12:0 0 AM HEALTH PROFESSIONAL documented in this encounter Results * DERMATOPATHOLOGY (11/21/2022 12:00 AM HEALTH PROFESSIONAL) Case Report Dermatopathology Report Case: [id number] Authorizing Provider: Addi Espinosa MD Collected: 11/21/2022 12:00 AM Ordering Location: [facility] DermPath Lab Received: 11/23/2022 06:57 AM Pathologist: Jahaira Soliz MD Specimens: A) - Skin, right cheek below eye B) - Skin, right paraspinal 4:43 PM HEALTH PROFESSIONAL DERMATOPATHOLOGY LABORATORY Final Diagnosis Specimen A. SKIN, right cheek below eye: SEBACEOUS HYPERPLASIA (L73.8) Specimen B. SKIN, right paraspinal: DERMAL FIBROSIS (L90.5) (see microscopic description and comment) 3 4:43 PM [facility] DERMATOPATHOLOGY LABORATORY at [address] HEALTH PROFESSIONAL Clinical History A-B: R/O BCC, SCC 3 4:43 PM [facility] DERMATOPATHOLOGY LABORATORY Gross Description Specimen A: [...] 8x7x1 mm. Jar 0. 3 4:43 PM [facility] DERMATOPATHOLOGY LABORATORY Microscopic Description Specimen A. [...] aspect of a dermatofibroma. 3 4:43 PM [facility] DERMATOPATHOLOGY LABORATORY Disclaimer An external and internal positive and negative controls are appropriate for the histochemical, immunohistochemical and immunofluorescence stain(s) in this case (if any), except where stated explicitly. The performance characteristics of the stain(s) cited in this report were developed and its performance characteristic determined by the Dermatopathology Laboratory at [facility], directed by Dr. Shell Hu. These tests need not be, and therefore are not, approved by the [place] Food and Drug Administration. The tests are used for clinical purposes. Billing Codes Specimen Charges Stain Charges 17469 21925 1 1 39890 1 3 4:43 PM [facility] DERMATOPATHOLOGY LABORATORY Embedded Images 3 4:43 PM [facility] DERMATOPATHOLOGY LABORATORY Pathology/Cytology TISSUE SPECIMEN FROM SKIN / Unknown 11/21/2022 11/23/2022 6:57 AM [facility] Miscellaneous samples (specimen) TISSUE SPECIMEN FROM SKIN / Unknown 11/21/2022 11/23/2022 6:57 AM HEALTH PROFESSIONAL us Addi Espinosa MD LAB - PATHOLOGY/CYTOLOGY ORD ERABLES Final Result DERMATOPATHOLOGY LABORATORY [facility] - Department of Dermatology [facility] Specialized Medicine [address] [place] [address], [address] [phone] documented in this encounter Visit Diagnoses Not on filedocumented in this encounter Care Teams Janitor Helper Relationship Specialty Start Date End Date Keanu Yao MD [address] [facility] [address] [place] [address] PCP - General 08/11/08 documented as of this encounter
--- OUTSIDE RECORDS SUMMARY | 2025-06-23 07:58 | XMS_ITS | Encounter Summary ---
Author Organization [facility] Address [address] [place] [address] Care Team Providers Care Laboratory Director Name Role Phone Keanu Yao MD Primary Care Provider Encounter Details Date Type Department Care Team (Late st Contact Info) Description 10/21/2021 Lab Requisition [facility] DermPath Lab [address] [facility] [place] [address] Addi Espinosa MD [address] [place] [address] Social History Tobacco Use Types Packs/Day Years Used Date Smoking Tobacco: Never Assessed Sex and Gender Information Value Date Recorded Sex Assigned at Not on file Legal Sex Male 5:51 PM TAIL BOARD MAN Gender Identity Not on file Sexual Orientation Not on file documented as of this encounter Plan of Treatment Not on file documented as of this encounter Procedures Procedure Name Priority Date/Time Associated Diagnosis Comments DERMATOPATHOLOGY Routine 10/19/2021 12:0 0 AM TAIL BOARD MAN documented in this encounter Results * DERMATOPATHOLOGY (10/19/2021 12:00 AM TAIL BOARD MAN) Case Report Dermatopathology Report Case: [id number] Authorizing Provider: Addi Espinosa MD Collected: 10/19/2021 12:00 AM Ordering Location: [facility] DermPath Lab Received: 10/21/2021 12:25 PM Pathologist: Beth Jo MD Specimen: Skin, right superior pretibia 11:58 AM TAIL BOARD MAN DERMATOPATHOLOGY LABORATORY Final Diagnosis Specimen A. SKIN, right superior pretibia: DERMAL HEMORRHAGE (I99.8) DERMAL SCAR (L90.5) (see microscopic description) 11:58 AM [facility] DERMATOPATHOLOGY LABORATORY at [address] TAIL BOARD MAN Clinical History R/O BCC, SCC, hemangioma. 11:58 AM [facility] DERMATOPATHOLOGY LABORATORY Gross Description Specimen A: Received is one formalin filled container labeled with the patient's name and designated right superior pretibia. The specimen consists of a shave biopsy measuring [id number]. Jar 0. 11:58 AM [facility] DERMATOPATHOLOGY LABORATORY Microscopic Description Specimen A. SKIN, right superior pretibia: Sections show dermal hemorrhage with scattered hemosiderophages. There are fibroblasts and collagen bundles oriented parallel to the skin surface with elongated blood vessels, some of which are oriented perpendicular to the skin surface. 11:58 AM [facility] DERMATOPATHOLOGY LABORATORY Disclaimer An external and internal positive and negative controls are appropriate for the histochemical, immunohistochemical and immunofluorescence stain(s) in this case (if any), except where stated explicitly. The performance characteristics of the stain(s) cited in this report were developed and its performance characteristic determined by the Dermatopathology Laboratory at [facility], directed by Dr. Shell Hu. These tests need not be, and therefore are not, approved by the [place] Food and Drug Administration. The tests are used for clinical purposes. Billing Codes Specimen Charges Stain Charges 12941 1 11:58 AM [facility] DERMATOPATHOLOGY LABORATORY Embedded Images 11:58 AM [facility] DERMATOPATHOLOGY LABORATORY Pathology/Cytolog y TISSUE SPECIMEN FROM SKIN / Unknown 10/19/2021 10/21/2021 12:25 PM TAIL BOARD MAN us Addi Espinosa MD LAB - PATHOLOGY/CYTOLOGY ORD ERABLES Final Result DERMATOPATHOLOGY LABORATORY [facility] - Department of Dermatology [facility] [address] [place] [address], [address] [place] [address], [facility] [phone] documented in this encounter Visit Diagnoses Not on filedocumented in this encounter Care Teams Laboratory Director Relationship Specialty Start Date End Date Keanu Yao MD [address] [facility] [address] [place] [address] PCP - General 08/11/08 documented as of this encounter
--- OUTSIDE RECORDS SUMMARY | 2025-06-23 07:59 | XMS_ITS | Encounter Summary ---
Author Organization [facility] Address [address] [place] [address] Care Team Providers Care Scenery Builder Name Role Phone Keanu Yao MD Primary Care Provider [phone] Encounter Details Date Type Department Care Team (Late st Contact Info) Description 04/15/2018 Lab Requisition [facility] Care DermPath Lab [address] [facility], [place] [address] Addi Espinosa MD [address] [place] [address] Social History Tobacco Use Types Packs/Day Years Used Date Smoking Tobacco: Never Assessed Sex and Gender Information Value Date Recorded Sex Assigned at Not on file 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 Jar 0. Specimen B: Received is one formalin filled container labeled with the patient's name and designated left nose. The specimen consists of a shave biopsy measuring [id number]. Jar 0. 1:33 PM CDT DERMATOPATHOLOGY LABORATORY [...] determined by the Dermatopathology Laboratory at [facility]. These tests need not be, and therefore are not, approved by the [place] Food and Drug Administration. The tests are used for clinical purposes. Billing Codes Specimen Charges Stain Charges 72841 13225 1 1 1:33 PM CDT DERMATOPATHOLOGY LABORATORY Embedded Images 1:33 PM CDT DERMATOPATHOLOGY LABORATORY Pathology/Cytology TISSUE SPECIMEN FROM SKIN / Unknown 04/12/2018 04/15/2018 11:29 AM CDT Miscellaneous samples (specimen) TISSUE SPECIMEN FROM SKIN / Unknown 04/12/2018 04/15/2018 11:29 AM CDT us Addi Espinosa MD LAB - PATHOLOGY/CYTOLOGY ORD ERABLES Final Result DERMATOPATHOLOGY LABORATORY [facility] - Department of Dermatology [address] [facility], 5th [place] [address], [facility] [phone] documented in this encounter Visit Diagnoses Not on filedocumented in this encounter Care Teams Scenery Builder Relationship Specialty Start Date End Date Keanu Yao MD [address] [facility] [address] [place] [address] PCP - General 08/11/08 documented as of this encounter
--- OUTSIDE RECORDS SUMMARY | 2025-06-23 07:59 | XMS_ITS | Encounter Summary ---
Author Organization [facility] Address [address] [facility] [place] [address] Care Team Providers Care Drawing In Hand Name Role Phone Keanu Yao MD Primary Care Provider [phone] Encounter Details Date Type Department Care Team (Late st Contact Info) Description 02/14/2018 Lab Requisition [facility] Care DermPath Lab [address], [place] [address] Addi Espinosa MD [address] [place] [address] Social History Tobacco Use Types Packs/Day Years Used Date Smoking Tobacco: Never Assessed Sex and Gender Information Value Date Recorded Sex Assigned at Not on file 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 Jar 0. [...] characteristic determined by the Dermatopathology Laboratory at [facility]. These tests need not be, and therefore are not, approved by the [place] Food and Drug Administration. The tests are used for clinical purposes. Billing Codes Specimen Charges Stain Charges 44071 1 1:47 PM CDT DERMATOPATHOLOGY LABORATORY Embedded Images 1:47 PM CDT DERMATOPATHOLOGY LABORATORY Pathology/Cytolog y TISSUE SPECIMEN FROM SKIN / Unknown 02/13/2018 02/14/2018 1:42 PM CDT Addi Espinosa MD LAB - PATHOLOGY/CYTOLOGY ORD ERABLES Final Result DERMATOPATHOLOGY LABORATORY [facility] - Department of Dermatology [address] [place] [address] 5th Floor Lab B [address] [phone] documented in this encounter Visit Diagnoses Not on filedocumented in this encounter Care Teams Drawing In Hand Relationship Specialty Start Date End Date Keanu Yao MD [address] [facility] [address] [facility] [address] [place] [address] PCP - General 08/11/08 documented as of this encounter
== END 2025-06-23 07:39 | disposition home or self-care (01) ==
LOC: ANHIMG 07:39
PROVIDERS: PCP Internal Medicine; Visit Provider Nurse Practitioner
DX: R42 Dizziness and giddiness (principal)
CPT/HCPCS: 70544

== ENCOUNTER 2025-07-09 09:03 | Outpatient (CLI) | payer MEDICARE, SELFPAY ==
--- OUTSIDE RECORDS SUMMARY | 2003-07-14 10:15 | XMS_ITS | Continuity of Care Document ---
Author Organization [facility] Address [address] [place] [address] Phone Care Team Providers Care Delivery Driver/Supervisor Name Role Phone Lotus Adam Unavailable Unavailable Advance Directives Directive Yes / No Effective Date File Name No Information Encounters Encounter Description Practice Location Reason(s) For Visit Diagnoses Date Provider Providers Copied on Encounter [facility], [address], [place], [place], [id number], [place] tel:[phone] [facility] No Information Sep-3 0-200 3 Kia Gautam. [address] [facility] , [address], [place], [address], [place]. tel:[phone] Family History Family Member Type Diagnosis Age At Onset No Information Payers Payer name Insurance type Covered republican ID Authoriza tion(s) No Information Social History [...]
--- NOTE | ~2025-07-09 | XR_ITS ---
Abdominal radiograph(s) INDICATION: Unspecified abdominal pain 2 months, R10.9 COMPARISON: CT abdomen and pelvis 07/05/2023 TECHNIQUE: 2 views supine AP abdomen FINDINGS: Lung bases clear. Scattered colonic gas and stool. Scattered small bowel gas. Cholecystectomy clips. Lower abdominal wall hernia mesh repair. No evidence of organomegaly. No abnormal abdominal calcifications. No acute bony abnormality. IMPRESSION: 1. No acute abnormality identified. Reviewed, dictated and finalized at location R.
--- OUTSIDE RECORDS SUMMARY | 2025-07-09 09:36 | XMS_ITS | Encounter Summary ---
Author Organization [facility] Address [address] [facility] [place] [address] Care Team Providers Care Human Intelligence Name Role Phone Keanu Yao MD Primary Care Provider [phone] Encounter Details Date Type Department Care Team (Late st Contact Info) Description 04/15/2018 Lab Requisition [facility] Care DermPath Lab [address] [facility], [place] [address] Addi Espinosa MD [address] [place] [address] Social History Tobacco Use Types Packs/Day Years Used Date Smoking Tobacco: Never Assessed Sex and Gender Information Value Date Recorded Sex Assigned at Not on file 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 Gender Identity Not on file Sexual Orientation Not on file documented as of this encounter Plan of Treatment Not on file documented as of this encounter Procedures Procedure Name Priority Date/Time Associated Diagnosis Comments DERMATOPATHOLOGY Routine 04/12/2018 12:0 0 AM CDT documented in this encounter Results * DERMATOPATHOLOGY (04/12/2018 12:00 AM CDT) Case Report Dermatopathology Report Case: [id number] Authorizing Provider: Addi Espinosa MD Collected: 04/12/2018 12:00 AM Pathologist: Helen Guajardo MD Received: 04/15/2018 11:29 AM Specimens: A) - Skin, right congregational B) - Skin, left nose 8 1:33 PM CDT DERMATOPATHOLOGY LABORATORY Final Diagnosis Specimen A. SKIN, right congregational: SEBORRHEIC KERATOSIS (L82.1) Specimen B. SKIN, left nose: SQUAMOUS CELL CARCINOMA, WELL DIFFERENTIATED (C44.321) 1:33 PM CDT DERMATOPATHOLOGY LABORATORY at 1333 CDT Clinical History A: R/O ISK, BCC, SCC. B: R/O BCC. 1:33 PM CDT DERMATOPATHOLOGY LABORATORY Gross Description Specimen A: Received is one formalin filled container labeled with the patient's name and designated right congregational. The specimen consists of a shave biopsy measuring 20q7m5dr. Jar 0. Specimen B: Received is one formalin filled container labeled with the patient's name and designated left nose. The specimen consists of a shave biopsy measuring 63x41p3qw. Jar 0. 1:33 PM CDT DERMATOPATHOLOGY LABORATORY Microscopic Description Specimen A. SKIN, right congregational: Sections show an acanthotic lesion composed of [...] by the Dermatopathology Laboratory at [facility]. These tests need not be, and therefore are not, approved by the [place] Food and Drug Administration. The tests are used for clinical purposes. Billing Codes Specimen Charges Stain Charges 93841 93015 1 1 1:33 PM CDT DERMATOPATHOLOGY LABORATORY Embedded Images 1:33 PM CDT DERMATOPATHOLOGY LABORATORY Pathology/Cytology TISSUE SPECIMEN FROM SKIN / Unknown 04/12/2018 04/15/2018 11:29 AM CDT Miscellaneous samples (specimen) TISSUE SPECIMEN FROM SKIN / Unknown 04/12/2018 04/15/2018 11:29 AM CDT us Addi Espinosa MD LAB - PATHOLOGY/CYTOLOGY ORD ERABLES Final Result DERMATOPATHOLOGY LABORATORY [facility] - Department of Dermatology [address] [facility], 5th [place] [address], [facility] [phone] documented in this encounter Visit Diagnoses Not on filedocumented in this encounter Care Teams Human Intelligence Relationship Specialty Start Date End Date Keanu Yao MD [address] [facility] [address] [place] [address] PCP - General 08/11/08 documented as of this encounter
--- OUTSIDE RECORDS SUMMARY | 2025-07-09 09:36 | XMS_ITS | Encounter Summary ---
Author Organization [facility] Address [address] [facility] [place] [address] Care Team Providers Care Radio Program Director Name Role Phone Keanu Yao MD Primary Care Provider [phone] Encounter Details Date Type Department Care Team (Late st Contact Info) Description 12/16/2020 Lab Requisition [facility] DermPath Lab [address] 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 Gender Identity Not on file Sexual Orientation Not on file documented as of this encounter Plan of Treatment Not on file documented as of this encounter Procedures Procedure Name Priority Date/Time Associated Diagnosis Comments DERMATOPATHOLOGY Routine 12/15/2020 3:33 AM COMMUNICATIONS CONTROLLER documented in this encounter Results * DERMATOPATHOLOGY (12/15/2020 3:33 AM COMMUNICATIONS CONTROLLER) Case Report Dermatopathology Report Case: [id number] Authorizing Provider: Addi Espinosa MD Collected: 12/15/2020 03:33 AM Ordering Location: [facility] DermPath Lab Received: 12/16/2020 01:27 PM Pathologist: Sherley Hu MD Specimens: A) - Skin, below right earlobe B) - Skin, right post base of neck 5:19 PM COMMUNICATIONS CONTROLLER DERMATOPATHOLOGY LABORATORY Final Diagnosis Specimen A. SKIN, below right earlobe: BASAL CELL CARCINOMA, NODULAR TYPE (C44.212) Specimen B. 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 B: R/O dysplastic nevus. 5:19 PM [facility] DERMATOPATHOLOGY LABORATORY Gross Description Specimen A: Received is one formalin filled container labeled with the patient's name and designated below right earlobe. The specimen consists of a shave biopsy measuring 6p1c3ex. Jar 0. Specimen B: Received is one formalin filled container labeled with the patient's name and designated right post base of neck. The specimen consists of a shave biopsy measuring 77a6g2gu. Jar 0. 5:19 PM [facility] DERMATOPATHOLOGY LABORATORY Microscopic Description Specimen A. [...] Dr. Katiana Moyer, who agrees. 5:19 PM [facility] DERMATOPATHOLOGY LABORATORY Disclaimer An external and internal positive and negative controls are appropriate for the histochemical, immunohistochemical and immunofluorescence stain(s) in this case (if any), except where stated explicitly. The performance characteristics of the stain(s) cited in this report were developed and its performance characteristic determined by the Dermatopathology Laboratory at [facility], directed by Dr. Shell Hu. These tests need not be, and therefore are not, approved by the [place] Food and Drug Administration. The tests are used for clinical purposes. Billing Codes Specimen Charges Stain Charges 81747 32710 1 1 59328 1 1 5:19 PM [facility] DERMATOPATHOLOGY LABORATORY Embedded Images 5:19 PM COMMUNICATIONS CONTROLLER DERMATOPATHOLOGY LABORATORY Pathology/Cytology TISSUE SPECIMEN FROM SKIN / Unknown 12/15/2020 3:33 AM COMMUNICATIONS CONTROLLER 12/16/2020 1:27 PM COMMUNICATIONS CONTROLLER Miscellaneous samples (specimen) TISSUE SPECIMEN FROM SKIN / Unknown 12/15/2020 3:33 AM COMMUNICATIONS CONTROLLER 12/16/2020 1:27 PM COMMUNICATIONS CONTROLLER Addi Espinosa MD LAB - PATHOLOGY/CYTOLOGY ORD ERABLES Final Result DERMATOPATHOLOGY LABORATORY [facility] - Department of Dermatology [facility] Specialized Medicine [address] [place] [address], [address]rd Floor [address] [phone] documented in this encounter Visit Diagnoses Not on filedocumented in this encounter Care Teams Radio Program Director Relationship Specialty Start Date End Date Keanu Yao MD [address] [facility] [address] [place] [address] PCP - General 08/11/08 documented as of this encounter
--- OUTSIDE RECORDS SUMMARY | 2025-07-09 09:36 | XMS_ITS | Encounter Summary ---
Author Organization [facility] Address [address] [place] [address] Care Team Providers Care Silk Trimmer Name Role Phone Keanu Yao MD Primary Care Provider [phone] Encounter Details Date Type Department Care Team (Late st Contact Info) Description 02/14/2018 Lab Requisition [facility] Care DermPath Lab [address] 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 Jar 0. [...] characteristic determined by the Dermatopathology Laboratory at [facility]. These tests need not be, and therefore are not, approved by the [place] Food and Drug Administration. The tests are used for clinical purposes. Billing Codes Specimen Charges Stain Charges 14321 1 1:47 PM CDT DERMATOPATHOLOGY LABORATORY Embedded Images 1:47 PM CDT DERMATOPATHOLOGY LABORATORY Pathology/Cytolog y TISSUE SPECIMEN FROM SKIN / Unknown 02/13/2018 02/14/2018 1:42 PM CDT Addi Espinosa MD LAB - PATHOLOGY/CYTOLOGY ORD ERABLES Final Result DERMATOPATHOLOGY LABORATORY [facility] - Department of Dermatology [address] [place] [address] 5th Floor Lab [address] [phone] documented in this encounter Visit Diagnoses Not on filedocumented in this encounter Care Teams Silk Trimmer Relationship Specialty Start Date End Date Keanu Yao MD [address] [facility] [address] [facility] [address] [place] [address] PCP - General 08/11/08 documented as of this encounter
--- OUTSIDE RECORDS SUMMARY | 2025-07-09 09:36 | XMS_ITS | Encounter Summary ---
Author Organization [facility] Address [address] [place] [address] Care Team Providers Care Acetylene Torch Operator Name Role Phone Keanu Yao MD Primary Care Provider [phone] Encounter Details Date Type Department Care Team (Late st Contact Info) Description 04/09/2019 Lab Requisition [facility] Care DermPath Lab [address] 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 Shell Hu. These tests need not be, and therefore are not, approved by the [place] Food and Drug Administration. The tests are used for clinical purposes. Billing Codes Specimen Charges Stain Charges 59857 1 9 5:45 PM CDT DERMATOPATHOLOGY LABORATORY Embedded Images 5:45 PM CDT DERMATOPATHOLOGY LABORATORY Pathology/Cytolog y TISSUE SPECIMEN FROM SKIN / Unknown 04/08/2019 04/09/2019 12:35 PM CDT Addi Espinosa MD LAB - PATHOLOGY/CYTOLOGY ORD ERABLES Final Result DERMATOPATHOLOGY LABORATORY [facility] - Department of Dermatology [address] [facility] [place] 5th [place] [address], [facility] [phone] documented in this encounter Visit Diagnoses Not on filedocumented in this encounter Care Teams Acetylene Torch Operator Relationship Specialty Start Date End Date Keanu Yao MD [address] [facility] [address] [place] [address] PCP - General 08/11/08 documented as of this encounter
--- OUTSIDE RECORDS SUMMARY | 2025-07-09 09:36 | XMS_ITS | Clinical Summary ---
Author Organization [facility] Address [address] [address] Phone Care Team Providers Care Clinical Project Coordinator Name Role Phone Breezy Trinidad DO Primary Care Provider [phone] Allergies No known active allergies Medications Fluticasone [...] topic Insurance MEDICARE [facility] Care Teams Clinical Project Coordinator Relationship Specialty Start Date End Date Breezy Trinidad DO [address] [address] PCP - General Internal Medicine 04/21/19
--- OUTSIDE RECORDS SUMMARY | 2025-07-09 09:36 | XMS_ITS | Clinical Summary ---
Author Organization [facility] Address [address] [place] [address] Care Team Providers Care Cloth Printer Helper Name Role Phone Keanu Yao MD Primary Care Provider [phone] Source Comments [facility],non-owned Affiliates and Associated Physician Practices is amultiple site organization consisting of ambulatory clinics and hospital sitesin [place], [place], [place] and [place]. This disclosure is being madepursuant to the Care Everywhere program and may not contain all information available regarding this patient. 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
--- OUTSIDE RECORDS SUMMARY | 2025-07-09 09:36 | XMS_ITS | Encounter Summary ---
Author Organization [facility] Address [address] [facility] [place] [address] Care Team Providers Care Coagulation Operator Name Role Phone Keanu Yao MD Primary Care Provider [phone] Encounter Details Date Type Department Care Team (Late st Contact Info) Description 09/02/2024 Lab Requisition [facility] - DermPath Lab [address] [facility] [place] [address] Addi Espinosa MD [address] [place] [address] Social History Tobacco Use Types Packs/Day Years Used Date Smoking Tobacco: Never Assessed Sex and Gender Information Value Date Recorded Sex Assigned at Not on file 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 Gender Identity Not on file Sexual Orientation Not on file documented as of this encounter Plan of Treatment Not on file documented as of this encounter Procedures Procedure Name Priority Date/Time Associated Diagnosis Comments DERMATOPATHOLOGY Routine 09/01/2024 12:0 0 AM SLAUGHTERER RELIGIOUS RITUAL documented in this encounter Results * DERMATOPATHOLOGY (09/01/2024 12:00 AM SLAUGHTERER RELIGIOUS RITUAL) Case Report Dermatopathology Report Case: [id number] Authorizing Provider: Addi Espinosa MD Collected: 09/01/2024 12:00 AM Ordering Location: [facility] Physician [facility] - Received: 09/02/2024 12:55 PM DermPath Lab Pathologist: Katiana Moyer MD Specimen: Skin, left posterior neck 4:23 PM SLAUGHTERER RELIGIOUS RITUAL DERMATOPATHOLOGY LABORATORY Final Diagnosis Specimen A. SKIN, left posterior neck: GRANULOMATOUS DERMATITIS CONSISTENT WITH A RUPTURED CYST OR HAIR FOLLICLE (L72.0) (see microscopic description) 4:23 PM [facility] DERMATOPATHOLOGY LABORATORY at [address] SLAUGHTERER RELIGIOUS RITUAL Clinical History R/o SCC vs BCC 4:23 PM [facility] DERMATOPATHOLOGY LABORATORY Gross Description Specimen A: Received is one formalin filled container labeled with the patient's name and designated left posterior neck. The specimen consists of a shave biopsy measuring 8x6x1 mm. Jar 0. 4:23 PM [facility] DERMATOPATHOLOGY LABORATORY Microscopic Description Specimen A. SKIN, left posterior neck: Neutrophils, histiocytes, and multinucleated giant cells are present within the dermis. Additional deeper sections were obtained and reviewed. 4:23 PM [facility] DERMATOPATHOLOGY LABORATORY Disclaimer An external and internal positive and negative controls are appropriate for the histochemical, immunohistochemical and immunofluorescence stain(s) in this case (if any), except where stated explicitly. The performance characteristics of the stain(s) cited in this report were developed and its performance characteristic determined by the Dermatopathology Laboratory at [facility], directed by Dr. Shell Hu. These tests need not be, and therefore are not, approved by the [place] Food and Drug Administration. The tests are used for clinical purposes. Billing Codes Specimen Charges Stain Charges 86182 1 4:23 PM [facility] DERMATOPATHOLOGY LABORATORY Embedded Images 4:23 PM [facility] DERMATOPATHOLOGY LABORATORY Pathology/Cytolog y TISSUE SPECIMEN FROM SKIN / Unknown 09/01/2024 09/02/2024 12:55 PM SLAUGHTERER RELIGIOUS RITUAL Addi Espinosa MD LAB - PATHOLOGY/CYTOLOGY ORD ERABLES Final Result DERMATOPATHOLOGY LABORATORY [facility] - Department of Dermatology [facility] Medicine [address] [place] [address], 3rd [place] [address], [facility] [phone] documented in this encounter Visit Diagnoses Not on filedocumented in this encounter Care Teams Coagulation Operator Relationship Specialty Start Date End Date Keanu Yao MD [address] [facility] [address] [place] [address] PCP - General 08/11/08 documented as of this encounter
--- OUTSIDE RECORDS SUMMARY | 2025-07-09 09:36 | XMS_ITS | Encounter Summary ---
Author Organization [facility] Address [address] [place] [address] Care Team Providers Care Healthcare Administration Internship Name Role Phone Keanu Yao MD Primary Care Provider [phone] Encounter Details Date Type Department Care Team (Late st Contact Info) Description 11/23/[address] [facility] DermPath Lab [address] [facility] [place] [address] Addi Espinosa MD [address] [place] [address] Social History Tobacco Use Types Packs/Day Years Used Date Smoking Tobacco: Never Assessed Sex and Gender Information Value Date Recorded Sex Assigned at Not on file Legal Sex Male 5:51 PM RECORD CHANGER TESTER Gender Identity Not on file Sexual Orientation Not on file documented as of this encounter Plan of Treatment Not on file documented as of this encounter Procedures Procedure Name Priority Date/Time Associated Diagnosis Comments DERMATOPATHOLOGY Routine 11/21/2022 12:0 0 AM RECORD CHANGER TESTER documented in this encounter Results * DERMATOPATHOLOGY (11/21/2022 12:00 AM RECORD CHANGER TESTER) Case Report Dermatopathology Report Case: [id number] Authorizing Provider: Addi Espinosa MD Collected: 11/21/2022 12:00 AM Ordering Location: [facility] DermPath Lab Received: 11/23/2022 06:57 AM Pathologist: Jahaira Soliz MD Specimens: A) - Skin, right cheek below eye B) - Skin, right paraspinal 4:43 PM RECORD CHANGER TESTER DERMATOPATHOLOGY LABORATORY Final Diagnosis Specimen A. SKIN, right cheek below eye: SEBACEOUS HYPERPLASIA (L73.8) Specimen B. SKIN, right paraspinal: DERMAL FIBROSIS (L90.5) (see microscopic description and comment) 3 4:43 PM [facility] DERMATOPATHOLOGY LABORATORY at 1643 RECORD CHANGER TESTER Clinical History A-B: R/O BCC, SCC 3 4:43 PM [facility] DERMATOPATHOLOGY LABORATORY Gross Description Specimen A: [...] 8x7x1 mm. Jar 0. 3 4:43 PM [facility] DERMATOPATHOLOGY LABORATORY Microscopic Description Specimen A. [...] aspect of a dermatofibroma. 3 4:43 PM [facility] DERMATOPATHOLOGY LABORATORY Disclaimer An external and internal positive and negative controls are appropriate for the histochemical, immunohistochemical and immunofluorescence stain(s) in this case (if any), except where stated explicitly. The performance characteristics of the stain(s) cited in this report were developed and its performance characteristic determined by the Dermatopathology Laboratory at [facility], directed by Dr. Shell Hu. These tests need not be, and therefore are not, approved by the [place] Food and Drug Administration. The tests are used for clinical purposes. Billing Codes Specimen Charges Stain Charges 44166 56130 1 1 77665 1 3 4:43 PM [facility] DERMATOPATHOLOGY LABORATORY Embedded Images 3 4:43 PM [facility] DERMATOPATHOLOGY LABORATORY Pathology/Cytology TISSUE SPECIMEN FROM SKIN / Unknown 11/21/2022 11/23/2022 6:57 AM [facility] Miscellaneous samples (specimen) TISSUE SPECIMEN FROM SKIN / Unknown 11/21/2022 11/23/2022 6:57 AM RECORD CHANGER TESTER us Addi Espinosa MD LAB - PATHOLOGY/CYTOLOGY ORD ERABLES Final Result DERMATOPATHOLOGY LABORATORY [facility] - Department of Dermatology [facility] Specialized Medicine [address] [place] [address], [address] [phone] documented in this encounter Visit Diagnoses Not on filedocumented in this encounter Care Teams Healthcare Administration Internship Relationship Specialty Start Date End Date Keanu Yao MD [address] [facility] [address] [place] [address] PCP - General 08/11/08 documented as of this encounter
--- OUTSIDE RECORDS SUMMARY | 2025-07-09 09:36 | XMS_ITS | Encounter Summary ---
Author Organization [facility] Address [address] [facility] [place] [address] Care Team Providers Care Certified Anesthesiologist Assistant Name Role Phone Keanu Yao MD Primary Care Provider [phone] Encounter Details Date Type Department Care Team (Late st Contact Info) Description 10/21/2021 Lab Requisition [facility] DermPath Lab [address] [facility] [place] [address] Addi Espinosa MD [address] [place] [address] Social History Tobacco Use Types Packs/Day Years Used Date Smoking Tobacco: Never Assessed Sex and Gender Information Value Date Recorded Sex Assigned at Not on file Legal Sex Male 5:51 PM COMPLIANCE ADVISOR Gender Identity Not on file Sexual Orientation Not on file documented as of this encounter Plan of Treatment Not on file documented as of this encounter Procedures Procedure Name Priority Date/Time Associated Diagnosis Comments DERMATOPATHOLOGY Routine 10/19/2021 12:0 0 AM COMPLIANCE ADVISOR documented in this encounter Results * DERMATOPATHOLOGY (10/19/2021 12:00 AM COMPLIANCE ADVISOR) Case Report Dermatopathology Report [id number]: [id number] Authorizing Provider: Addi Espinosa MD Collected: 10/19/2021 12:00 AM Ordering Location: [facility] DermPath Lab Received: 10/21/2021 12:25 PM Pathologist: Beth Jo MD Specimen: Skin, right superior pretibia 11:58 AM COMPLIANCE ADVISOR DERMATOPATHOLOGY LABORATORY Final Diagnosis Specimen A. SKIN, right superior pretibia: DERMAL HEMORRHAGE (I99.8) DERMAL SCAR (L90.5) (see microscopic description) 11:58 AM [facility] DERMATOPATHOLOGY LABORATORY at 1158 COMPLIANCE ADVISOR Clinical History R/O BCC, SCC, hemangioma. 11:58 AM [facility] DERMATOPATHOLOGY LABORATORY Gross Description Specimen A: Received is one formalin filled container labeled with the patient's name and designated right superior pretibia. The specimen consists of a shave biopsy measuring [id number]. Jar 0. 11:58 AM [facility] DERMATOPATHOLOGY LABORATORY Microscopic Description Specimen A. SKIN, right superior pretibia: Sections show dermal hemorrhage with scattered hemosiderophages. There are fibroblasts and collagen bundles oriented parallel to the skin surface with elongated blood vessels, some of which are oriented perpendicular to the skin surface. 11:58 AM [facility] DERMATOPATHOLOGY LABORATORY Disclaimer An external and internal positive and negative controls are appropriate for the histochemical, immunohistochemical and immunofluorescence stain(s) in this case (if any), except where stated explicitly. The performance characteristics of the stain(s) cited in this report were developed and its performance characteristic determined by the Dermatopathology Laboratory at [facility], directed by Dr. Shell Hu. These tests need not be, and therefore are not, approved by the [place] Food and Drug Administration. The tests are used for clinical purposes. Billing Codes Specimen Charges Stain Charges 28770 1 11:58 AM [facility] DERMATOPATHOLOGY LABORATORY Embedded Images 11:58 AM [facility] DERMATOPATHOLOGY LABORATORY Pathology/Cytolog y TISSUE SPECIMEN FROM SKIN / Unknown 10/19/2021 10/21/2021 12:25 PM COMPLIANCE ADVISOR us Addi Espinosa MD LAB - PATHOLOGY/CYTOLOGY ORD ERABLES Final Result DERMATOPATHOLOGY LABORATORY [facility] - Department of Dermatology [facility] Medicine [address] [place] [address], 3rd [place] [address], [facility] [phone] documented in this encounter Visit Diagnoses Not on filedocumented in this encounter Care Teams Certified Anesthesiologist Assistant Relationship Specialty Start Date End Date Keanu Yoa MD [address] [facility] [address] [place] [address] PCP - General 08/11/08 documented as of this encounter
== END 2025-07-09 09:04 | disposition home or self-care (01) ==
PROVIDERS: PCP Internal Medicine; Visit Provider Nurse Practitioner
DX: R10.9 Unspecified abdominal pain (principal)
CPT/HCPCS: 74018

== ENCOUNTER 2025-07-27 09:35 | Outpatient (CLI) | payer MEDICARE, SELFPAY ==
--- NOTE | ~2025-07-27 | CT_ITS ---
EXAMINATION: CT abdomen pelvis wo con DATE: 07/27/2025 09:55 INDICATION: Intra-abdominal and pelvic swelling, mass, and lump. TECHNIQUE: Computed tomography (CT) of the abdomen and pelvis was performed without intravenous contrast. Automated exposure control and iterative reconstruction technique were employed. The dose-length product was 456.37 mGy-cm. COMPARISON: CT abdomen and pelvis 07/05/2023 FINDINGS: The visualized portions of the lung bases demonstrate mild atelectasis. Calcified right lung nodules and calcified right hilar lymph nodes are consistent with old granulomatous disease. There is a pneumatocele in right lower lobe. No pleural effusion. Cardiomegaly is noted. There are coronary artery calcifications. No pericardial effusion. There is an 11 mm cyst in the liver. There are changes of cholecystectomy. Calcifications in the spleen are consistent with old granulomatous disease. Calcifications in the pancreas are consistent with chronic pancreatitis. The adrenal glands are normal. There are cysts in the kidneys measuring up to 1.8 cm on the right. There are subcentimeter hemorrhagic cysts in the kidneys. There are changes of ventral hernia repair. There are scattered diverticula in the colon. Again seen is wall thickening of the sigmoid colon, consistent with chronic diverticulitis. The appendix is normal. There are no dilated loops of bowel. There are no pathologically enlarged lymph nodes. There is no free intraperitoneal fluid. There is a left inguinal hernia containing fat. There is severe thoracic and lumbar spondylosis. IMPRESSION: 1. Left inguinal hernia containing fat. 2. Chronic wall thickening of the sigmoid colon, consistent with chronic diverticulitis. Reviewed, dictated and finalized at location E. IMPRESSION: 1. Left inguinal hernia containing fat. 2. Chronic wall thickening of the sigmoid colon, consistent with chronic divert iculitis.
--- OUTSIDE RECORDS SUMMARY | 2025-07-27 10:14 | XMS_ITS | Encounter Summary ---
Author Organization [facility] Address [address] [facility] [place] [address] Care Team Providers Care Mechanical Press Operator Name Role Phone Keanu Yao MD Primary Care Provider [phone] Encounter Details Date Type Department Care Team (Late st Contact Info) Description 12/16/2020 Lab Requisition [facility] DermPath Lab [address] [facility] [place] [address] Addi Espinosa MD [address] [place] [address] Social History Tobacco Use Types Packs/Day Years Used Date Smoking Tobacco: Never Assessed Sex and Gender Information Value Date Recorded Sex Assigned at Not on file Legal Sex Male 5:51 PM CONCRETE BOOM OPERATOR Gender Identity Not on file Sexual Orientation Not on file documented as of this encounter Plan of Treatment Not on file documented as of this encounter Procedures Procedure Name Priority Date/Time Associated Diagnosis Comments DERMATOPATHOLOGY Routine 12/15/2020 3:33 AM CONCRETE BOOM OPERATOR documented in this encounter Results * DERMATOPATHOLOGY (12/15/2020 3:33 AM CONCRETE BOOM OPERATOR) Case Report Dermatopathology Report Case: [id number] Authorizing Provider: Addi Espinosa MD Collected: 12/15/2020 03:33 AM Ordering Location: [facility] DermPath Lab Received: 12/16/2020 01:27 PM Pathologist: Sherley Hu MD Specimens: A) - Skin, below right earlobe B) - Skin, right post base of neck 5:19 PM CONCRETE BOOM OPERATOR DERMATOPATHOLOGY LABORATORY Final Diagnosis Specimen A. SKIN, below right earlobe: BASAL CELL CARCINOMA, NODULAR TYPE (C44.212) Specimen B. 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 B: R/O dysplastic nevus. 5:19 PM [facility] DERMATOPATHOLOGY LABORATORY Gross Description Specimen A: Received is one formalin filled container labeled with the patient's name and designated below right earlobe. The specimen consists of a shave biopsy measuring [id number]. Jar 0. Specimen B: Received is one formalin filled container labeled with the patient's name and designated right post base of neck. The specimen consists of a shave biopsy measuring [id number]. Jar 0. 5:19 PM [facility] [...] characteristic determined by the Dermatopathology Laboratory at [facility], directed by Dr. Shell Hu. These tests need not be, and therefore are not, approved by the [place] Food and Drug Administration. The tests are used for clinical purposes. Billing Codes Specimen Charges Stain Charges 62195 16994 1 1 99019 1 1 5:19 PM [facility] DERMATOPATHOLOGY LABORATORY Embedded Images 5:19 PM CONCRETE BOOM OPERATOR DERMATOPATHOLOGY LABORATORY Pathology/Cytology TISSUE SPECIMEN FROM SKIN / Unknown 12/15/2020 3:33 AM CONCRETE BOOM OPERATOR 12/16/2020 1:27 PM CONCRETE BOOM OPERATOR Miscellaneous samples (specimen) TISSUE SPECIMEN FROM SKIN / Unknown 12/15/2020 3:33 AM CONCRETE BOOM OPERATOR 12/16/2020 1:27 PM CONCRETE BOOM OPERATOR Addi Espinosa MD LAB - PATHOLOGY/CYTOLOGY ORD ERABLES Final Result DERMATOPATHOLOGY LABORATORY [facility] - Department of Dermatology [facility] Specialized Medicine [address] [place] [address], [address] [phone] documented in this encounter Visit Diagnoses Not on filedocumented in this encounter Care Teams Mechanical Press Operator Relationship Specialty Start Date End Date Keanu Yao MD [address] [place] [address] [place] [address] PCP - General 08/11/08 documented as of this encounter
--- OUTSIDE RECORDS SUMMARY | 2025-07-27 10:14 | XMS_ITS | Encounter Summary ---
Author Organization [facility] Address [address] [facility] [place] [address] Care Team Providers Care Government Relations Manager Name Role Phone Keanu Yao MD Primary Care Provider [phone] Encounter Details Date Type Department Care Team (Late st Contact Info) Description 02/14/2018 Lab Requisition [facility] Care DermPath Lab [address] [facility] [place] [address] Addi Espinosa MD [address] [place] [address] Social History Tobacco Use Types Packs/Day Years Used Date Smoking Tobacco: Never Assessed Sex and Gender Information Value Date Recorded Sex Assigned at Not on file Legal Sex Male 5:51 PM RETAIL LOSS PREVENTION OFFICER Gender Identity Not on file Sexual Orientation Not on file documented as of this encounter Plan of Treatment Not on file documented as of this encounter Procedures Procedure Name Priority Date/Time Associated Diagnosis Comments DERMATOPATHOLOGY Routine 02/13/2018 12:0 0 AM CDT documented in this encounter Results * DERMATOPATHOLOGY (02/13/2018 12:00 AM CDT) Case Report Dermatopathology Report Case: [id number] Authorizing Provider: Addi Espinosa MD Collected: 02/13/2018 [...] specimen consists of a shave biopsy measuring [id number], the margin is inked green. Jar 0. [...] determined by the Dermatopathology Laboratory at [facility]. These tests need not be, and therefore are not, approved by the [place] Food and Drug Administration. The tests are used for clinical purposes. Billing Codes Specimen Charges Stain Charges 00289 1 1:47 PM CDT DERMATOPATHOLOGY LABORATORY Embedded Images 1:47 PM CDT DERMATOPATHOLOGY LABORATORY Pathology/Cytolog y TISSUE SPECIMEN FROM SKIN / Unknown 02/13/2018 02/14/2018 1:42 PM CDT Addi Espinosa MD LAB - PATHOLOGY/CYTOLOGY ORD ERABLES Final Result DERMATOPATHOLOGY LABORATORY [facility] - Department of Dermatology [address] [place] [address] 5th Floor Lab [address] [phone] documented in this encounter Visit Diagnoses Not on filedocumented in this encounter Care Teams Government Relations Manager Relationship Specialty Start Date End Date Keanu Yao MD [address] [facility] [address] [facility] [address] [place] [address] PCP - General 08/11/08 documented as of this encounter
--- OUTSIDE RECORDS SUMMARY | 2025-07-27 10:14 | XMS_ITS | Clinical Summary ---
Author Organization [facility] Address [address] [address] Phone Care Team Providers Care Brokerage Purchase And Sale Clerk Name Role Phone Breezy Trinidad DO Primary Care Provider [phone] Allergies No known active allergies Medications Fluticasone [...] age to complete this topic Insurance MEDICARE [facility] Care Teams Brokerage Purchase And Sale Clerk Relationship Specialty Start Date End Date Breezy Trinidad DO [address] [address] PCP - General Internal Medicine 04/21/19
--- OUTSIDE RECORDS SUMMARY | 2025-07-27 10:14 | XMS_ITS | Clinical Summary ---
Author Organization [facility] Address [address] [place] [address] Care Team Providers Care Data Entry Name Role Phone Keanu Yao MD Primary Care Provider [phone] Source Comments [facility],non-owned Affiliates and Associated Physician Practices is amultiple site organization consisting of ambulatory clinics and hospital sitesin [place], [place], [place] and [place]. This disclosure is being madepursuant to the Care Everywhere program and may not contain all information available regarding this patient. Last updated 18.[facility] [employer] Social History Tobacco Use Types Packs/Day Years Used Date Smoking Tobacco: Never Assessed Sex and Gender Information Value Date Recorded Sex Assigned at Not on file Legal Sex Male 5:51 PM CANNED FOOD RECONDITIONING INSPECTOR Gender Identity Not on file Sexual Orientation [...] ANTHEM MEDICARE ANTHEM MEDICARE ANTHEM Care Teams Data Entry Relationship Specialty Start Date End Date Keanu Yao MD [address] [place] [address] PCP - General 08/11/08
--- OUTSIDE RECORDS SUMMARY | 2025-07-27 10:14 | XMS_ITS | Encounter Summary ---
Author Organization [facility] Address [address] [place] [address] Care Team Providers Care Steel Finisher Name Role Phone Keanu Yao MD Primary Care Provider [phone] Encounter Details Date Type Department Care Team (Late st Contact Info) Description 10/21/2021 Lab Requisition [facility] DermPath Lab [address] [facility] [place] [address] Addi Espinosa MD [address] [place] [address] Social History Tobacco Use Types Packs/Day Years Used Date Smoking Tobacco: Never Assessed Sex and Gender Information Value Date Recorded Sex Assigned at Not on file Legal Sex Male 5:51 PM ASSEMBLY INSPECTOR HELPER Gender Identity Not on file Sexual Orientation Not on file documented as of this encounter Plan of Treatment Not on file documented as of this encounter Procedures Procedure Name Priority Date/Time Associated Diagnosis Comments DERMATOPATHOLOGY Routine 10/19/2021 12:0 0 AM ASSEMBLY INSPECTOR HELPER documented in this encounter Results * DERMATOPATHOLOGY (10/19/2021 12:00 AM ASSEMBLY INSPECTOR HELPER) Case Report Dermatopathology Report Case: [id number] Authorizing Provider: Addi Espinosa MD Collected: 10/19/2021 12:00 AM Ordering Location: [facility] DermPath Lab Received: 10/21/2021 12:25 PM Pathologist: Beth Jo MD Specimen: Skin, right superior pretibia 11:58 AM ASSEMBLY INSPECTOR HELPER DERMATOPATHOLOGY LABORATORY Final Diagnosis Specimen A. SKIN, right superior pretibia: DERMAL HEMORRHAGE (I99.8) DERMAL SCAR (L90.5) (see microscopic description) 11:58 AM [facility] DERMATOPATHOLOGY LABORATORY at 1158 ASSEMBLY INSPECTOR HELPER Clinical History R/O BCC, SCC, hemangioma. 11:58 AM [facility] DERMATOPATHOLOGY LABORATORY Gross Description Specimen A: Received is one formalin filled container labeled with the patient's name and designated right superior pretibia. The specimen consists of a shave biopsy measuring [id number]. Jar 0. 11:58 AM [facility] DERMATOPATHOLOGY LABORATORY Microscopic Description Specimen A. SKIN, right superior pretibia: Sections show dermal hemorrhage with scattered hemosiderophages. There are fibroblasts and collagen bundles oriented parallel to the skin surface with elongated blood vessels, some of which are oriented perpendicular to the skin surface. 11:58 AM [facility] DERMATOPATHOLOGY LABORATORY Disclaimer An external and internal positive and negative controls are appropriate for the histochemical, immunohistochemical and immunofluorescence stain(s) in this case (if any), except where stated explicitly. The performance characteristics of the stain(s) cited in this report were developed and its performance characteristic determined by the Dermatopathology Laboratory at [facility], directed by Dr. Shell Hu. These tests need not be, and therefore are not, approved by the [place] Food and Drug Administration. The tests are used for clinical purposes. Billing Codes Specimen Charges Stain Charges 42431 1 11:58 AM [facility] DERMATOPATHOLOGY LABORATORY Embedded Images 11:58 AM [facility] DERMATOPATHOLOGY LABORATORY Pathology/Cytolog y TISSUE SPECIMEN FROM SKIN / Unknown 10/19/2021 10/21/2021 12:25 PM ASSEMBLY INSPECTOR HELPER us Addi Espinosa MD LAB - PATHOLOGY/CYTOLOGY ORD ERABLES Final Result DERMATOPATHOLOGY LABORATORY [facility] - Department of Dermatology [facility] Medicine [address] [place] [address], 3rd [place] [address], [facility] [phone] documented in this encounter Visit Diagnoses Not on filedocumented in this encounter Care Teams Steel Finisher Relationship Specialty Start Date End Date Keanu Yao MD [address] [facility] [address] [place] [address] PCP - General 08/11/08 documented as of this encounter
--- OUTSIDE RECORDS SUMMARY | 2025-07-27 10:14 | XMS_ITS | Clinical Summary ---
Author Organization [facility] [address] Address [address] [place] [address] Care Team Providers Care Chore Worker Name Role Phone Breezy Trinidad DO Primary Care Provider [phone] Allergies Active Allergy Reactions Criticality Noted Date Comments Iodinated Contrast Media Shortness of br eath,Flushing (skin) High 05/06/2020 Iodine Rash Medium 04/03/2022 Medications felodipine (PLENDIL) 10 mg 24 hr tablet Take 1 tablet (10 mg total) by mouth daily Active KLOR-CON M20 20 mEq CR tablet Take 1 tablet (20 mEq total) by mouth 2 (two) times a day 3 04/09/2019 Active pravastatin (PRAVACHOL) 20 mg tablet Take 1 tablet (20 mg total) by mouth daily 1 06/17/2019 Active spironolactone (ALDACTONE) 25 mg tablet Take 1 tablet (25 mg total) by mouth daily Active multivitamin capsule Take 1 capsule by mouth daily Active salmon oiL-omega-3 fatty acids ([place] [employer]'Lakes Oil-1000) 1,000-200 mg capsule [place] [employer]akes Oil-1000 Active psyllium 0.52 gram capsule Take 1 capsule (0.52 g total) by mouth daily Active latanoprost (XALATAN) 0.005 % ophthalmic solution INSTILL 1 DROP INTO EACH EYE ONCE DAILY AT BEDTIME 02/24/2024 Active pioglitazone (ACTOS) 15 mg tablet Take 1 tablet (15 mg total) by mouth daily 11/14/2024 Active timolol (TIMOPTIC) 0.5 % ophthalmic solution INSTILL 1 DROP INTO EACH EYE ONCE DAILY 05/13/2025 Active Active Problems Problem Noted Date Diagnosed [...] year Assessment & Plan (12/03/2020 2:56 PM MELTER LOADER): White noise to cancel out ringing sound Hearing test - [facility] (azelastine) 2 sprays into each nostril while looking down over the sink, do not sniff in or blow nose after use for at least 30 minutes twice daily Bilateral hearing loss 12/03/2020 Assessment & Plan (12/03/2020 2:58 PM MELTER LOADER): White noise to cancel out ringing sound Hearing test - [employer] (azelastine) 2 sprays into each nostril while looking down over the sink, do not sniff in or blow nose after use for at least 30 minutes twice daily for at least 6 weeks Dysfunction of both eustachian tubes 12/03/2020 Assessment & Plan (12/03/2020 2:57 PM MELTER LOADER): White noise to cancel out ringing sound Hearing test - [employer] (azelastine) 2 sprays into each nostril while looking down over the sink, do not sniff in or blow nose after use for at least 30 minutes twice daily RBBB 06/24/2019 PVC (premature ventricular contraction) 06/24/20 19 Encounters Date Type Department Care Team Description 06/04/2025 11:00 AM CDT Office Visit [facility] Cardiology at [address] [place] [address] Flakito Iniguez MD Aortic valve sclerosis (Primary Dx); RBBB; PVC (premature ventricular contraction) 05/26/2025 Orders Only [facility] Medicine Pathology Outreach [address] [place] [address] Unknown, Notinfile from Last 3 Months Surgical [...] on file Legal Sex Male 3:28 AM MELTER LOADER Gender Identity Not on file Sexual Orientation [...] Visit 65+ 2004 Covid-19 Vaccine ( season) 2025 10/14/2021, 02/08/2021, 01/07/2021 Influenza Vaccine (#1) 2025 Procedures Procedure Name Priority Date/Time Associated Diagnosis Comments SURGICAL PATHOLOGY Routine 05/26/2025 3: 00 PM CDT from Last 3 Months Results * Surgical pathology (05/26/2025 3:00 PM CDT) Skin, shave biopsy 05/26/2025 3:00 PM CDT 05/27/2025 8:06 AM CDT Narrative 05/28/2025 2:07 PM CDT EPIC results best viewed via link to PDF [facility] [address] [place] [address], [address], [place] [address] [email or web address] Note to Patients: This report may contain [...] REPORTED: 05/28/2025 Submitting Physician Information: Rhianna Donaldson [facility], [address] [place] [id number], DERMATOPATHOLOGY REPORT RESULTS DIAGNOSIS: A. SKIN, LEFT [...] than those at the time of procedure. [facility] ICD-9 ZSD.877 Clerical Data A; 62034 B; 78353 The characteristics of special, immunohistochemical, and immunofluorescence stains and in-situ hybridization tests performed by the [facility] were deemed acceptable in ongoing quality control lead measures and in compliance with regulations drawn from the Clinical Laboratory Improvement Act sn3880 (CLIA '88). Control reactions for all stains performed were deemed adequate and appropriate by a pathologist prior to evaluation of patient tissue. Some diagnoses were rendered with the assistance of laboratory-developed tests utilizing analyte-specific reagents; the performance characteristic of these tests were determined by [facility] and are not cleared or approved by the [place] Food an Drug administration. Laboratory developed test may only be performed in a facility that is certified by the [facility] as a high-complexity laboratory under CLIA '88. These tests are used for clinical purposes and are not investigational. Notinfile Unknown LAB PATHOLOGY ORDERABLES Final Result from Last 3 Months Insurance MEDICARE MEDICARE [facility] MEDICARE SUPPLEMENT MEDICARE [facility] MEDICARE SUPPLEMENT Care Teams Chore Worker Relationship Specialty Start Date End Date Breezy Tirnidad DO PCP - General Internal Medicine 05/08/24
--- OUTSIDE RECORDS SUMMARY | 2025-07-27 10:14 | XMS_ITS | Encounter Summary ---
Author Organization [facility] Address [address] [facility] [place] [address] Care Team Providers Care Linen Aide Name Role Phone Keanu Yao MD Primary Care Provider [phone] Encounter Details Date Type Department Care Team (Late st Contact Info) Description 11/23/2022 Lab Requisition [facility] DermPath Lab [address] [facility], [facility] [place] [address] Addi Espinosa MD [address] [place] [address] Social History Tobacco Use Types Packs/Day Years Used Date Smoking Tobacco: Never Assessed Sex and Gender Information Value Date Recorded Sex Assigned at Not on file 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 Gender Identity Not on file Sexual Orientation Not on file documented as of this encounter Plan of Treatment Not on file documented as of this encounter Procedures Procedure Name Priority Date/Time Associated Diagnosis Comments DERMATOPATHOLOGY Routine 11/21/2022 12:0 0 AM DATABASE MARKETING SPECIALIST documented in this encounter Results * DERMATOPATHOLOGY (11/21/2022 12:00 AM DATABASE MARKETING SPECIALIST) Case Report Dermatopathology Report Case: [id number] Authorizing Provider: Addi Espinosa MD Collected: 11/21/2022 12:00 AM Ordering Location: [facility] DermPath Lab Received: 11/23/2022 06:57 AM Pathologist: Jahaira Soliz MD Specimens: A) - Skin, right cheek below eye B) - Skin, right paraspinal 4:43 PM DATABASE MARKETING SPECIALIST DERMATOPATHOLOGY LABORATORY Final Diagnosis Specimen A. SKIN, right cheek below eye: SEBACEOUS HYPERPLASIA (L73.8) Specimen B. SKIN, right paraspinal: DERMAL FIBROSIS (L90.5) (see microscopic description and comment) 3 4:43 PM [facility] DERMATOPATHOLOGY LABORATORY at [address] DATABASE MARKETING SPECIALIST Clinical History A-B: R/O BCC, SCC 3 4:43 PM [facility] DERMATOPATHOLOGY LABORATORY Gross Description Specimen A: Received [...] 8x7x1 mm. Jar 0. 3 4:43 PM [facility] DERMATOPATHOLOGY LABORATORY Microscopic Description Specimen A. SKIN, [...] aspect of a dermatofibroma. 3 4:43 PM [facility] DERMATOPATHOLOGY LABORATORY Disclaimer An external and internal positive and negative controls are appropriate for the histochemical, immunohistochemical and immunofluorescence stain(s) in this case (if any), except where stated explicitly. The performance characteristics of the stain(s) cited in this report were developed and its performance characteristic determined by the Dermatopathology Laboratory at [facility], directed by Dr. Shell Hu. These tests need not be, and therefore are not, approved by the [place] Food and Drug Administration. The tests are used for clinical purposes. Billing Codes Specimen Charges Stain Charges 21714 01174 1 1 05072 1 3 4:43 PM [facility] DERMATOPATHOLOGY LABORATORY Embedded Images 3 4:43 PM [facility] DERMATOPATHOLOGY LABORATORY Pathology/Cytology TISSUE SPECIMEN FROM SKIN / Unknown 11/21/2022 11/23/2022 6:57 AM [facility] Miscellaneous samples (specimen) TISSUE SPECIMEN FROM SKIN / Unknown 11/21/2022 11/23/2022 6:57 AM DATABASE MARKETING SPECIALIST us Addi Espinosa MD LAB - PATHOLOGY/CYTOLOGY ORD ERABLES Final Result DERMATOPATHOLOGY LABORATORY [facility] - Department of Dermatology [facility] Specialized Medicine [address] [place] [address], [address] [phone] documented in this encounter Visit Diagnoses Not on filedocumented in this encounter Care Teams Linen Aide Relationship Specialty Start Date End Date Keanu Yao MD [address] [facility] [address] [place] [address] PCP - General 08/11/08 documented as of this encounter
--- OUTSIDE RECORDS SUMMARY | 2025-07-27 10:14 | XMS_ITS | Encounter Summary ---
Author Organization [facility] Address [address] [facility] [place] [address] Care Team Providers Care Application Support Consultant Name Role Phone Keanu Yao MD Primary Care Provider [phone] Encounter Details Date Type Department Care Team (Late st Contact Info) Description 04/15/[address] 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 Gender Identity Not on file Sexual Orientation Not on file documented as of this encounter Plan of Treatment Not on file documented as of this encounter Procedures Procedure Name Priority Date/Time Associated Diagnosis Comments DERMATOPATHOLOGY Routine 04/12/2018 12:0 0 AM CDT documented in this encounter Results * DERMATOPATHOLOGY (04/12/2018 12:00 AM CDT) Case Report Dermatopathology Report Case: [id number] Authorizing Provider: Addi Espinosa MD Collected: 04/12/2018 12:00 AM Pathologist: Helen Guajardo MD Received: 04/15/2018 11:29 AM Specimens: A) - Skin, right roman catholic B) - Skin, left nose 8 1:33 PM CDT DERMATOPATHOLOGY LABORATORY Final Diagnosis Specimen A. SKIN, right roman catholic: SEBORRHEIC KERATOSIS (L82.1) Specimen B. SKIN, left nose: SQUAMOUS CELL CARCINOMA, WELL DIFFERENTIATED (C44.321) 1:33 PM CDT DERMATOPATHOLOGY LABORATORY at 1333 CDT Clinical History A: R/O ISK, BCC, SCC. B: R/O BCC. 1:33 PM CDT DERMATOPATHOLOGY LABORATORY Gross Description Specimen A: Received is one formalin filled container labeled with the patient's name and designated right roman catholic. The specimen consists of a shave biopsy measuring [id number]. Jar 0. Specimen B: Received is one formalin filled container labeled with the patient's name and designated left nose. The specimen consists of a shave biopsy measuring [id number]. Jar 0. 1:33 PM CDT DERMATOPATHOLOGY LABORATORY Microscopic Description Specimen A. SKIN, right roman catholic: Sections show an acanthotic lesion composed of [...] characteristic determined by the Dermatopathology Laboratory at [facility]. These tests need not be, and therefore are not, approved by the [place] Food and Drug Administration. The tests are used for clinical purposes. Billing Codes Specimen Charges Stain Charges 70264 82909 1 1 1:33 PM CDT DERMATOPATHOLOGY LABORATORY Embedded Images 1:33 PM CDT DERMATOPATHOLOGY LABORATORY Pathology/Cytology TISSUE SPECIMEN FROM SKIN / Unknown 04/12/2018 04/15/2018 11:29 AM CDT Miscellaneous samples (specimen) TISSUE SPECIMEN FROM SKIN / Unknown 04/12/2018 04/15/2018 11:29 AM CDT us Addi Espinosa MD LAB - PATHOLOGY/CYTOLOGY ORD ERABLES Final Result DERMATOPATHOLOGY LABORATORY [facility] - Department of Dermatology [address] [facility], [address]th [place] [address], [facility] [phone] documented in this encounter Visit Diagnoses Not on filedocumented in this encounter Care Teams Application Support Consultant Relationship Specialty Start Date End Date Keanu Yao MD [address] [facility] [address] [place] [address] PCP - General 08/11/08 documented as of this encounter
--- OUTSIDE RECORDS SUMMARY | 2025-07-27 10:14 | XMS_ITS | Encounter Summary ---
Author Organization [facility] Address [address] [facility] [place] [address] Care Team Providers Care Supervisor Hardboard Name Role Phone Keanu Yao MD Primary Care Provider [phone] Encounter Details Date Type Department Care Team (Late st Contact Info) Description 09/02/2024 Lab Requisition [facility] - DermPath Lab [address] [facility] [place] [address] Addi Espinosa MD [address] [place] [address] Social History Tobacco Use Types Packs/Day Years Used Date Smoking Tobacco: Never Assessed Sex and Gender Information Value Date Recorded Sex Assigned at Not on file 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 Gender Identity Not on file Sexual Orientation Not on file documented as of this encounter Plan of Treatment Not on file documented as of this encounter Procedures Procedure Name Priority Date/Time Associated Diagnosis Comments DERMATOPATHOLOGY Routine 09/01/2024 12:0 0 AM FILTER PRESS OPERATOR documented in this encounter Results * DERMATOPATHOLOGY (09/01/2024 12:00 AM FILTER PRESS OPERATOR) Case Report Dermatopathology Report Case: [id number] Authorizing Provider: Addi Espinosa MD Collected: 09/01/2024 12:00 AM Ordering Location: [facility] Physician [facility] - Received: 09/02/2024 12:55 PM DermPath Lab Pathologist: Katiana Moyer MD Specimen: Skin, left posterior neck 4:23 PM FILTER PRESS OPERATOR DERMATOPATHOLOGY LABORATORY Final Diagnosis Specimen A. SKIN, left posterior neck: GRANULOMATOUS DERMATITIS CONSISTENT WITH A RUPTURED CYST OR HAIR FOLLICLE (L72.0) (see microscopic description) 4:23 PM [facility] DERMATOPATHOLOGY LABORATORY at [address] FILTER PRESS OPERATOR Clinical History R/o SCC vs BCC 4:23 [...] purposes. Billing Codes Specimen Charges Stain Charges 57642 1 4:23 PM [facility] DERMATOPATHOLOGY LABORATORY Embedded Images 4:23 PM [facility] DERMATOPATHOLOGY LABORATORY Pathology/Cytolog y TISSUE SPECIMEN FROM SKIN / Unknown 09/01/2024 09/02/2024 12:55 PM FILTER PRESS OPERATOR Addi Espinosa MD LAB - PATHOLOGY/CYTOLOGY ORD ERABLES Final Result DERMATOPATHOLOGY LABORATORY [facility] - Department of Dermatology [facility] [address] [place] [address], [address] [place] [address], [facility] [phone] documented in this encounter Visit Diagnoses Not on filedocumented in this encounter Care Teams Supervisor Hardboard Relationship Specialty Start Date End Date Keanu Yao MD [address] [facility] [address] [place] [address] PCP - General 08/11/08 documented as of this encounter
--- OUTSIDE RECORDS SUMMARY | 2025-07-27 10:14 | XMS_ITS | Encounter Summary ---
Author Organization [facility] Address [address] [place] [address] Care Team Providers Care Pot Tender Name Role Phone Keanu Yao MD Primary Care Provider [phone] Encounter Details Date Type Department Care Team (Late st Contact Info) Description 04/09/2019 Lab Requisition [facility] Care DermPath Lab [address] [facility] [place] [address] Addi Espinosa MD [address] [place] [address] Social History Tobacco Use Types Packs/Day Years Used Date Smoking Tobacco: Never Assessed Sex and Gender Information Value Date Recorded Sex Assigned at Not on file 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 Shell Hu. These tests need not be, and therefore are not, approved by the [place] Food and Drug Administration. The tests are used for clinical purposes. Billing Codes Specimen Charges Stain Charges 72705 1 9 5:45 PM CDT DERMATOPATHOLOGY LABORATORY Embedded Images 5:45 PM CDT DERMATOPATHOLOGY LABORATORY Pathology/Cytolog y TISSUE SPECIMEN FROM SKIN / Unknown 04/08/2019 04/09/2019 12:35 PM CDT Addi Espinosa MD LAB - PATHOLOGY/CYTOLOGY ORD ERABLES Final Result DERMATOPATHOLOGY LABORATORY [facility] - Department of Dermatology [address] [facility], [address]th [place] [address], [facility] [phone] documented in this encounter Visit Diagnoses Not on filedocumented in this encounter Care Teams Pot Tender Relationship Specialty Start Date End Date Keanu Yao MD [address] [facility] [address] [place] [address] PCP - General 08/11/08 documented as of this encounter
== END 2025-07-27 09:36 | disposition home or self-care (01) ==
PROVIDERS: PCP Internal Medicine; Visit Provider Nurse Practitioner
DX: R19.00 Intra-abdominal and pelvic swelling, mass and lump, unspecified site (principal); R10.819 Abdominal tenderness, unspecified site; K40.90 Unilateral inguinal hernia, without obstruction or gangrene, not specified as recurrent
CPT/HCPCS: 74176